=== PATIENT | female | born 1945 | race Caucasian/White ===

== ENCOUNTER → 2017-11-24 10:09 | Outpatient (CLI) | payer MEDICARE, SELFPAY ==
[2017-11-24 12:05] LABS: Absolute Neutrophil Count 3.6 X10^3/uL (2.0-7.7); Basophil# 0.04 X10^3/uL; Basophil% 0.5 % (0-1); Eosinophil# 0.22 X10^3/uL; Eosinophils% 2.9 % (0-5); Hematocrit 40.7 % (37-47); Hemoglobin 13.4 g/dl (12.0-15.0); Lymphocyte % 37.2 % (19-41); Mean Corp Hgb Conc 32.9 g/gl (32-36); Mean Corpuscular Hgb 33.2 pg (27.0-32.0); Mean Corpuscular Volume 100.7 fL (81-99); Mean Platelet Vol. 9.3 fl (6.2-12.0); Monocyte# 0.82 X10^3/uL; Monocyte% 10.9 % (0-10); Platelet Count 130 K/mm3 (150-450); RBC Distribution Width CV 15.3 % (11.6-14.6); RBC Distribution Width SD 54.7 fl (35.1-43.9); Red Blood Count 4.04 M/mm3 (4.2-5.4); White Blood Count 7.5 K/mm3 (4.4-11.0)
[2017-11-24 12:08] LABS: POSITIVE COUNT NO; POSITIVE MORPHOLOGY NO
[2017-11-24 12:09] LABS: POSITIVE DIFFERENTIAL NO
[2017-11-24 12:25] LABS: ALB/GLOB Ratio 0.9 RATIO (0.9-2.4); AST(SGOT) 24 U/L (15-37); Alanine Aminotransfer ALT/SGPT 23 U/L (13-56); Albumin, Serum 3.4 g/dL (3.2-5.0); Alkaline Phosphatase 161 U/L (45-117); Anion Gap 5 (5-15); BUN 16 mg/dL (7-18); BUN/Creat Ratio 21.2 RATIO (10-20); Calcium,Total 9.1 mg/dL (8.5-10.1); Chloride 102 mmol/L (98-107); Creatinine, Serum 0.76 mg/dL (0.55-1.02); EST Glomerular Filtration Rate 80 mL/min (>60); Est Glom Filt Rate - Afr Amer 97 mL/min (>60); Globulin 3.9 g/dL (2.2-4.2); Glucose 149 mg/dL (74-106); Potassium 4.4 mmol/L (3.5-5.1); Protein, Total 7.3 g/dL (6.4-8.2); Sodium Level 137 mmol/L (136-145)
== END ==
PROVIDERS: Family Provider Family Medicine; PCP Family Medicine; Visit Provider Internal Medicine Rheumatology
DX: L40.59 Other psoriatic arthropathy (principal); Z79.899 Other long term (current) drug therapy; L40.8 Other psoriasis; M79.7 Fibromyalgia; M17.0 Bilateral primary osteoarthritis of knee; I10 Essential (primary) hypertension; E11.9 Type 2 diabetes mellitus without complications
CPT/HCPCS: 36415; 80053; 85025

== ENCOUNTER → 2018-02-18 10:14 | Outpatient (CLI) | payer MEDICARE, SELFPAY ==
--- NOTE | 2018-02-18 10:14 | DT_ITS ---
This patient was seen during an EMR downtime February 16, 2018 - February 23, 2018. This patient may have a combination of paper and electronic documentation or all paper documentation. All documentation is viewable within the e-chart portion of [facility] for each patient visit.
[2018-02-23 12:50] LABS: Hematocrit 42.6 % (37-47); Hemoglobin 14.5 g/dl (12.0-15.0); Mean Corpuscular Hgb 31.9 pg (27.0-32.0); Mean Corpuscular Volume 93.8 fL (81-99); Mean Platelet Vol. 10.6 fl (6.2-12.0); POSITIVE COUNT NO; POSITIVE DIFFERENTIAL NO; POSITIVE MORPHOLOGY NO; Platelet Count 102 K/mm3 (150-450); RBC Distribution Width CV 13.4 % (11.6-14.6); Red Blood Count 4.54 M/mm3 (4.2-5.4); White Blood Count 7.1 K/mm3 (4.4-11.0)
[2018-02-23 12:51] LABS: Absolute Lymphocyte Count 2.55 X10^3/ul (0.83-4.51); Absolute Neutrophil Count 3.4 X10^3/uL (2.0-7.7); Basophil% 0.6 % (0-1); Eosinophils% 2.3 % (0-5); Lymphocyte # 2.55 X10^3/ul (4.0); Lymphocyte % 36.2 % (19-41); Monocyte% 12.8 % (0-10); Neutrophil # 3.38 X10^3/uL (2.7-7.7); Neutrophil % 47.8 % (47-70)
[2018-02-23 13:13] LABS: ALB/GLOB Ratio 0.8 RATIO (0.9-2.4); AST(SGOT) 40 U/L (15-37); Alanine Aminotransfer ALT/SGPT 26 U/L (13-56); Albumin, Serum 3.5 g/dL (3.2-5.0); Alkaline Phosphatase 195 U/L (45-117); Anion Gap 10 (5-15); BUN 23 mg/dL (7-18); BUN/Creat Ratio 22.3 RATIO (10-20); Calcium,Total 9.4 mg/dL (8.5-10.1); Chloride 100 mmol/L (98-107); Creatinine, Serum 1.03 mg/dL (0.55-1.02); EST Glomerular Filtration Rate 56 mL/min (>60); Est Glom Filt Rate - Afr Amer 68 mL/min (>60); Globulin 4.4 g/dL (2.2-4.2); Glucose 269 mg/dL (74-106); Potassium 4.4 mmol/L (3.5-5.1); Protein, Total 7.9 g/dL (6.4-8.2); Sodium Level 136 mmol/L (136-145)
== END ==
PROVIDERS: Family Provider Family Medicine; PCP Family Medicine; Visit Provider Internal Medicine Rheumatology
DX: L40.59 Other psoriatic arthropathy (principal); Z79.899 Other long term (current) drug therapy; L40.8 Other psoriasis; M79.7 Fibromyalgia; M17.0 Bilateral primary osteoarthritis of knee; I10 Essential (primary) hypertension; E11.9 Type 2 diabetes mellitus without complications
CPT/HCPCS: 36415; 80053; 85025

== ENCOUNTER → 2018-04-08 10:09 | Outpatient (CLI) | payer MEDICARE, SELFPAY ==
[2018-04-08 12:22] LABS: Absolute Lymphocyte Count 2.16 X10^3/ul (0.83-4.51); Absolute Neutrophil Count 3.5 X10^3/uL (2.0-7.7); Basophil# 0.05 X10^3/uL; Basophil% 0.8 % (0-1); Eosinophil# 0.17 X10^3/uL; Eosinophils% 2.6 % (0-5); Hemoglobin 14.5 g/dl (12.0-15.0); Lymphocyte # 2.16 X10^3/ul (4.0); Lymphocyte % 33.3 % (19-41); Mean Corp Hgb Conc 34.5 g/gl (32-36); Mean Corpuscular Hgb 32.4 pg (27.0-32.0); Mean Corpuscular Volume 93.8 fL (81-99); Mean Platelet Vol. 10.1 fl (6.2-12.0); Monocyte# 0.58 X10^3/uL; Monocyte% 8.9 % (0-10); Neutrophil # 3.52 X10^3/uL (2.7-7.7); Neutrophil % 54.2 % (47-70); Platelet Count 114 K/mm3 (150-450); RBC Distribution Width CV 15.3 % (11.6-14.6); RBC Distribution Width SD 50.7 fl (35.1-43.9); Red Blood Count 4.48 M/mm3 (4.2-5.4); White Blood Count 6.5 K/mm3 (4.4-11.0)
[2018-04-08 12:28] LABS: POSITIVE COUNT NO; POSITIVE DIFFERENTIAL NO; POSITIVE MORPHOLOGY NO
[2018-04-08 12:35] LABS: ALB/GLOB Ratio 0.8 RATIO (0.9-2.4); AST(SGOT) 39 U/L (15-37); Alanine Aminotransfer ALT/SGPT 28 U/L (13-56); Albumin, Serum 3.6 g/dL (3.2-5.0); Alkaline Phosphatase 190 U/L (45-117); Anion Gap 14 (5-15); BUN 15 mg/dL (7-18); BUN/Creat Ratio 15.2 RATIO (10-20); Calcium,Total 9.6 mg/dL (8.5-10.1); Chloride 103 mmol/L (98-107); Creatinine, Serum 0.98 mg/dL (0.55-1.02); EST Glomerular Filtration Rate 59 mL/min (>60); Est Glom Filt Rate - Afr Amer 72 mL/min (>60); Globulin 4.5 g/dL (2.2-4.2); Glucose 242 mg/dL (74-106); Protein, Total 8.1 g/dL (6.4-8.2); Sodium Level 139 mmol/L (136-145)
== END ==
PROVIDERS: Family Provider Family Medicine; PCP Family Medicine; Visit Provider Internal Medicine Rheumatology
DX: L40.59 Other psoriatic arthropathy (principal); Z79.899 Other long term (current) drug therapy; L40.8 Other psoriasis; M79.7 Fibromyalgia; M17.0 Bilateral primary osteoarthritis of knee; I10 Essential (primary) hypertension; E11.9 Type 2 diabetes mellitus without complications
CPT/HCPCS: 36415; 80053; 85025

== ENCOUNTER → 2018-04-09 15:42 | Outpatient (CLI) | payer MEDICARE, SELFPAY ==
[2018-04-09 17:40] LABS: Amphetamine Urine VISTA NEGATIVE (<1000 ng/mL); Barbiturate Urine VISTA NEGATIVE (< 200 ng/mL); Benzodiazepine Urine VISTA NEGATIVE (< 200 ng/mL); Cocaine Urine VISTA NEGATIVE (< 300 ng/mL); Ecstacy Urine VISTA NEGATIVE (< 500 ng/mL); Methadone Urine VISTA NEGATIVE (< 300 ng/mL); PCP Urine VISTA NEGATIVE (< 25 ng/mL); THC Urine VISTA NEGATIVE (< 50 ng/mL); Vista UDS pH Range 6
== END ==
PROVIDERS: Family Provider Family Medicine; PCP Family Medicine; Visit Provider Anesthesiology Pain Medicine
DX: F11.20 Opioid dependence, uncomplicated (principal)
CPT/HCPCS: 80307

== ENCOUNTER → 2018-06-24 09:31 | Outpatient (CLI) | payer MEDICARE, SELFPAY ==
[2018-06-24 12:19] LABS: Absolute Lymphocyte Count 2.18 X10^3/ul (0.83-4.51); Absolute Neutrophil Count 2.9 X10^3/uL (2.0-7.7); Basophil# 0.03 X10^3/uL; Basophil% 0.5 % (0-1); Eosinophil# 0.17 X10^3/uL; Eosinophils% 2.9 % (0-5); Hematocrit 41.8 % (37-47); Hemoglobin 14.1 g/dl (12.0-15.0); Lymphocyte # 2.18 X10^3/ul (4.0); Lymphocyte % 36.6 % (19-41); Mean Corp Hgb Conc 33.7 g/gl (32-36); Mean Corpuscular Hgb 32.3 pg (27.0-32.0); Mean Corpuscular Volume 95.9 fL (81-99); Mean Platelet Vol. 10.1 fl (6.2-12.0); Monocyte# 0.62 X10^3/uL; Monocyte% 10.4 % (0-10); Neutrophil # 2.93 X10^3/uL (2.7-7.7); Neutrophil % 49.3 % (47-70); POSITIVE COUNT NO; POSITIVE DIFFERENTIAL NO; POSITIVE MORPHOLOGY NO; Platelet Count 90 K/mm3 (150-450); RBC Distribution Width CV 15.8 % (11.6-14.6); RBC Distribution Width SD 53.9 fl (35.1-43.9); Red Blood Count 4.36 M/mm3 (4.2-5.4)
[2018-06-24 13:02] LABS: ALB/GLOB Ratio 0.9 RATIO (0.9-2.4); AST(SGOT) 28 U/L (15-37); Alanine Aminotransfer ALT/SGPT 26 U/L (13-56); Albumin, Serum 3.7 g/dL (3.2-5.0); Alkaline Phosphatase 167 U/L (45-117); Anion Gap 10 (5-15); BUN 12 mg/dL (7-18); BUN/Creat Ratio 14.2 RATIO (10-20); Calcium,Total 9.5 mg/dL (8.5-10.1); Chloride 101 mmol/L (98-107); Creatinine, Serum 0.84 mg/dL (0.55-1.02); EST Glomerular Filtration Rate 71 mL/min (>60); Est Glom Filt Rate - Afr Amer 85 mL/min (>60); Globulin 4.3 g/dL (2.2-4.2); Glucose 200 mg/dL (74-106); Potassium 3.9 mmol/L (3.5-5.1); Sodium Level 137 mmol/L (136-145)
== END ==
PROVIDERS: Family Provider Family Medicine; PCP Family Medicine; Referring Provider Internal Medicine Rheumatology; Visit Provider Internal Medicine Rheumatology
DX: L40.59 Other psoriatic arthropathy (principal); Z79.899 Other long term (current) drug therapy; L40.8 Other psoriasis; M79.7 Fibromyalgia; M17.0 Bilateral primary osteoarthritis of knee; I10 Essential (primary) hypertension; E11.9 Type 2 diabetes mellitus without complications
CPT/HCPCS: 36415; 80053; 85025

== ENCOUNTER → 2018-07-02 08:25 | Outpatient (CLI) | payer MEDICARE, MEDICAID, SELFPAY ==
--- NOTE | 2018-07-02 08:27 | RAD_ITS ---
STUDY: X-RAY - ESOPHAGUS (BARIUM SWALLOW) WITH FLUOROSCOPY REASON FOR EXAM: Female, 73 years old. Dysphagia for solids and liquids. TECHNIQUE: 15 view(s) of the esophagus were obtained following swallowing of barium. FLUOROSCOPY TIME (if supplied): (0:52) minutes/seconds COMPARISON: None. FINDINGS: There is no demonstrated esophageal foreign body. There is no demonstrated stricture or mucosal abnormality. Normal gastroesophageal junction, without a demonstrated hiatal hernia. The patient ingested a 12 mm tablet of barium without any difficulty. There is atherosclerotic tortuosity of the aortic arch and descending thoracic aorta. Normal visualized pulmonary parenchyma. There are diffuse degenerative changes of the visualized thoracic spine. RAD/Esophagus Only IMPRESSION: Normal plain film x-ray examination (barium swallow) of the esophagus. Electronically Signed: Mitch Martinez MD at 9:06 EDT Tel [phone], Service support ,
== END ==
PROVIDERS: Family Provider Family Medicine; PCP Family Medicine; Referring Provider Family Medicine; Visit Provider Family Medicine
DX: R13.10 Dysphagia, unspecified (principal)
CPT/HCPCS: 74220

== ENCOUNTER → 2018-09-28 10:26 | Outpatient (CLI) | payer MEDICARE, SELFPAY ==
[2018-09-28 12:03] LABS: Absolute Lymphocyte Count 1.98 X10^3/ul (0.83-4.51); Absolute Neutrophil Count 1.8 X10^3/uL (2.0-7.7); Basophil# 0.04 X10^3/uL; Basophil% 0.9 % (0-1); Eosinophils% 4.4 % (0-5); Hematocrit 38.8 % (37-47); Hemoglobin 13.2 g/dl (12.0-15.0); Lymphocyte # 1.98 X10^3/ul (4.0); Lymphocyte % 43.5 % (19-41); Mean Corpuscular Hgb 33.9 pg (27.0-32.0); Mean Corpuscular Volume 99.7 fL (81-99); Mean Platelet Vol. 10.2 fl (6.2-12.0); Monocyte# 0.55 X10^3/uL; Monocyte% 12.1 % (0-10); Neutrophil # 1.75 X10^3/uL (2.7-7.7); Neutrophil % 38.4 % (47-70); Platelet Count 85 K/mm3 (150-450); RBC Distribution Width CV 15.1 % (11.6-14.6); RBC Distribution Width SD 52.5 fl (35.1-43.9); Red Blood Count 3.89 M/mm3 (4.2-5.4); White Blood Count 4.6 K/mm3 (4.4-11.0)
[2018-09-28 12:18] LABS: POSITIVE COUNT NO; POSITIVE DIFFERENTIAL NO; POSITIVE MORPHOLOGY NO
[2018-09-28 12:27] LABS: ALB/GLOB Ratio 0.9 RATIO (0.9-2.4); AST(SGOT) 32 U/L (15-37); Alanine Aminotransfer ALT/SGPT 23 U/L (13-56); Albumin, Serum 3.5 g/dL (3.2-5.0); Alkaline Phosphatase 166 U/L (45-117); Anion Gap 12 (5-15); BUN 11 mg/dL (7-18); BUN/Creat Ratio 14.1 RATIO (10-20); Calcium,Total 9.7 mg/dL (8.5-10.1); Chloride 100 mmol/L (98-107); Creatinine, Serum 0.78 mg/dL (0.55-1.02); EST Glomerular Filtration Rate 77 mL/min (>60); Est Glom Filt Rate - Afr Amer 94 mL/min (>60); Globulin 3.9 g/dL (2.2-4.2); Glucose 222 mg/dL (74-106); Potassium 3.8 mmol/L (3.5-5.1); Protein, Total 7.4 g/dL (6.4-8.2); Sodium Level 135 mmol/L (136-145)
== END ==
PROVIDERS: Family Provider Family Medicine; PCP Family Medicine; Referring Provider Internal Medicine Rheumatology; Visit Provider Internal Medicine Rheumatology
DX: L40.59 Other psoriatic arthropathy (principal); Z79.899 Other long term (current) drug therapy; L40.8 Other psoriasis; M79.7 Fibromyalgia; M17.0 Bilateral primary osteoarthritis of knee; I10 Essential (primary) hypertension; E11.9 Type 2 diabetes mellitus without complications
CPT/HCPCS: 36415; 80053; 85025

== ENCOUNTER → 2018-10-29 09:56 | Outpatient (CLI) | payer MEDICARE, SELFPAY ==
[2018-10-29 11:11] LABS: Amphetamine Urine VISTA NEGATIVE (<1000 ng/mL); Barbiturate Urine VISTA NEGATIVE (< 200 ng/mL); Benzodiazepine Urine VISTA NEGATIVE (< 200 ng/mL); Cocaine Urine VISTA NEGATIVE (< 300 ng/mL); Ecstacy Urine VISTA NEGATIVE (< 500 ng/mL); Methadone Urine VISTA NEGATIVE (< 300 ng/mL); PCP Urine VISTA NEGATIVE (< 25 ng/mL); THC Urine VISTA NEGATIVE (< 50 ng/mL); Vista UDS pH Range 5
== END ==
PROVIDERS: Family Provider Family Medicine; PCP Family Medicine; Referring Provider Anesthesiology Pain Medicine; Visit Provider Anesthesiology Pain Medicine
DX: F11.20 Opioid dependence, uncomplicated (principal)
CPT/HCPCS: 80307

== ENCOUNTER → 2018-12-08 13:57 | Outpatient (CLI) | payer MEDICARE, SELFPAY ==
[2018-12-08 15:30] LABS: Absolute Neutrophil Count 2.5 X10^3/uL (2.0-7.7); Basophil# 0.04 X10^3/uL; Basophil% 0.8 % (0-1); Eosinophil# 0.16 X10^3/uL; Eosinophils% 3.1 % (0-5); Hematocrit 39.1 % (37-47); Hemoglobin 12.9 g/dl (12.0-15.0); Lymphocyte % 36.8 % (19-41); Mean Corpuscular Hgb 33.4 pg (27.0-32.0); Mean Corpuscular Volume 101.3 fL (81-99); Mean Platelet Vol. 10.5 fl (6.2-12.0); Monocyte# 0.55 X10^3/uL; Monocyte% 10.7 % (0-10); Neutrophil % 48.4 % (47-70); Platelet Count 92 K/mm3 (150-450); RBC Distribution Width CV 14.8 % (11.6-14.6); RBC Distribution Width SD 53.7 fl (35.1-43.9); Red Blood Count 3.86 M/mm3 (4.2-5.4); White Blood Count 5.2 K/mm3 (4.4-11.0)
[2018-12-08 15:34] LABS: POSITIVE COUNT NO; POSITIVE DIFFERENTIAL NO; POSITIVE MORPHOLOGY NO
[2018-12-08 15:42] LABS: ALB/GLOB Ratio 0.9 RATIO (0.9-2.4); AST(SGOT) 39 U/L (15-37); Alanine Aminotransfer ALT/SGPT 28 U/L (13-56); Albumin, Serum 3.5 g/dL (3.2-5.0); Alkaline Phosphatase 254 U/L (45-117); Anion Gap 8 (5-15); BUN 9 mg/dL (7-18); BUN/Creat Ratio 9.6 RATIO (10-20); Calcium,Total 9.3 mg/dL (8.5-10.1); Chloride 101 mmol/L (98-107); Creatinine, Serum 0.94 mg/dL (0.55-1.02); EST Glomerular Filtration Rate 62 mL/min (>60); Est Glom Filt Rate - Afr Amer 75 mL/min (>60); Globulin 3.7 g/dL (2.2-4.2); Glucose 263 mg/dL (74-106); Potassium 3.6 mmol/L (3.5-5.1); Protein, Total 7.2 g/dL (6.4-8.2); Sodium Level 137 mmol/L (136-145)
== END ==
PROVIDERS: Family Provider Family Medicine; PCP Family Medicine; Referring Provider Internal Medicine Rheumatology; Visit Provider Internal Medicine Rheumatology
DX: L40.59 Other psoriatic arthropathy (principal); L40.8 Other psoriasis; M79.7 Fibromyalgia; M17.0 Bilateral primary osteoarthritis of knee; I10 Essential (primary) hypertension; E11.9 Type 2 diabetes mellitus without complications; Z79.899 Other long term (current) drug therapy
CPT/HCPCS: 36415; 80053; 85025

== ENCOUNTER → 2019-04-23 | Outpatient (CLI) | payer MEDICARE, SELFPAY ==
[2019-04-23 10:14] LABS: Absolute Lymphocyte Count 2.14 X10^3/uL (0.83-4.51); Absolute Neutrophil Count 2.9 X10^3/uL (2.0-7.7); Basophil# 0.04 X10^3/uL; Basophil% 0.7 % (0-1); Eosinophil# 0.16 X10^3/uL; Eosinophils% 2.7 % (0-5); Lymphocyte # 2.14 X10^3/ul (4.0); Lymphocyte % 36.1 % (19-41); Mean Corp Hgb Conc 32.5 g/dL (32-36); Mean Corpuscular Hgb 29.5 pg (27.0-32.0); Mean Corpuscular Volume 90.7 fL (81-99); Mean Platelet Vol. 10.7 fl (6.2-12.0); Monocyte# 0.62 X10^3/uL; Monocyte% 10.5 % (0-10); NRBC Flagged by Analyzer 0 % (0-5); Neutrophil # 2.94 X10^3/uL (2.7-7.7); Neutrophil % 49.7 % (47-70); Platelet Count 101 K/mm3 (150-450); RBC Distribution Width CV 14.5 % (11.6-14.6); RBC Distribution Width SD 47.8 fl (35.1-43.9); Red Blood Count 4.41 M/mm3 (4.2-5.4); White Blood Count 5.9 K/mm3 (4.4-11.0)
[2019-04-23 10:51] LABS: ALB/GLOB Ratio 0.7 RATIO (0.9-2.4); AST(SGOT) 21 U/L (15-37); Alanine Aminotransfer ALT/SGPT 21 U/L (13-56); Alkaline Phosphatase 188 U/L (45-117); Anion Gap 7 (5-15); BUN 17 mg/dL (7-18); BUN/Creat Ratio 22.3 RATIO (10-20); Calcium,Total 9.4 mg/dL (8.5-10.1); Chloride 104 mmol/L (98-107); Creatinine, Serum 0.76 mg/dL (0.55-1.02); EST Glomerular Filtration Rate 79 mL/min (>60); Est Glom Filt Rate - Afr Amer 96 mL/min (>60); Globulin 4.3 g/dL (2.2-4.2); Glucose 301 mg/dL (74-106); Potassium 3.8 mmol/L (3.5-5.1); Protein, Total 7.3 g/dL (6.4-8.2); Sodium Level 139 mmol/L (136-145)
== END | disposition home or self-care (01) ==
LOC: MTLAB 09:14
PROVIDERS: Family Provider Family Medicine; PCP Family Medicine; Referring Provider Internal Medicine Rheumatology; Visit Provider Internal Medicine Rheumatology
DX: L40.59 Other psoriatic arthropathy (principal); Z79.899 Other long term (current) drug therapy; L40.8 Other psoriasis; M79.7 Fibromyalgia; M17.0 Bilateral primary osteoarthritis of knee; I10 Essential (primary) hypertension; E11.9 Type 2 diabetes mellitus without complications
CPT/HCPCS: 36415; 80053; 85025

== ENCOUNTER 2019-05-13 15:02 | Emergency (ER) | payer MEDICARE, MEDICAID, SELFPAY ==
[2019-05-13 15:04] VITALS: BP 157/64; PULSE 91; RESP 18; TEMP 36.6; O2SAT 98; BMI 37.3
[2019-05-13 15:09] VITALS: PULSE 90
--- NOTE | 2019-05-13 15:26 | RAD_ITS ---
STUDY: X-RAY - LEFT HAND REASON FOR EXAM: Female, 74 years old. Fell and injured left wrist TECHNIQUE: 3 view(s) of the hand. COMPARISON: None. FINDINGS: Normal radiocarpal articulation. Normal distal radioulnar joint. Normal visualized carpal bones. Normal carpal articulations Normal carpometacarpal articulation of the thumb. Normal second through fifth carpometacarpal joints. Normal metacarpi. Normal metacarpophalangeal joint of the thumb. Normal interphalangeal joint of the thumb. Normal proximal and distal phalanges of the thumb. Normal metacarpophalangeal joints of the second through fifth fingers. Normal proximal and distal interphalangeal joints of the second through fifth fingers. Normal phalanges of the second through fifth fingers. The soft tissue structures are unremarkable. RAD/Hand Min 3 Views IMPRESSION: Normal x-ray examination of the hand. Electronically Signed: Travis Dean MD at 16:08 EDT , Service support ,
--- NOTE | 2019-05-13 15:27 | RAD_ITS ---
STUDY: X-RAY - RIGHT KNEE REASON FOR EXAM: Female, 74 years old. Fell and injured right knee TECHNIQUE: 4 view(s) of the knee. COMPARISON: None. FINDINGS: Normal visualized distal femur. Normal visualized proximal tibia and fibula. Normal proximal tibiofibular articulation. Normal medial femorotibial compartment. Normal lateral femorotibial compartment. Normal patellofemoral articulation. The soft tissue structures are unremarkable. RAD/Knee 4 or More Views IMPRESSION: Normal x-ray examination of the knee. Electronically Signed: Travis Dean MD at 16:14 EDT , Service support ,
--- NOTE | 2019-05-13 15:27 | RAD_ITS ---
STUDY: X-RAY - LUMBAR SPINE REASON FOR EXAM: Female, 74 years old. Low back pain status post fall TECHNIQUE: 3 view(s) of the lumbar spine were obtained. COMPARISON: Radiograph lumbar spine March 29, 2013 report FINDINGS: Normal lumbar lordosis. There is no substantial scoliosis. There is a normal alignment of the vertebrae. Normal vertebral bodies and endplates. Normal disc space heights except moderate narrowing at L5-S1.. Slight anterior subluxation L4-5. Moderate spondylosis L3-4 on the right. Subcutaneous neurostimulator left flank. 2 leads extend into the spinal canal at the T12 level and extends superiorly out of the field of view. It appears to be coiled subcutaneously at this level. The soft tissue structures are unremarkable. RAD/Lumbar Spine 2 or 3 Views IMPRESSION: No fracture Electronically Signed: Travis Dean MD at 16:21 EDT , Service support ,
--- NOTE | 2019-05-13 15:27 | RAD_ITS ---
STUDY: X-RAY - PELVIS AND BILATERAL HIPS REASON FOR EXAM: Female, 74 years old. Fell and injured BOTH hips TECHNIQUE: AP view of the pelvis.? 2 views of the right hip, and 2 views of the left hip were obtained. COMPARISON: None. FINDINGS: Neural stimulator left lower quadrant of the abdomen with leads extending superiorly out of the [id number]. There is a non-specific bowel gas pattern. Normal visualized soft tissue structures. Normal bilateral iliac wings, sacroiliac joints and visualized sacrum. Normal bilateral superior and inferior pubic rami. Normal pubic symphysis. Normal bilateral ischial tuberosities. Normal visualized right femoral head. Normal right acetabulum. Normal right hip joint. Normal visualized left femoral head. Normal left acetabulum. Normal left hip joint. Periarticular calcifications. RAD/Hips B/L min 2 views w/ Pelvis IMPRESSION: No fracture Electronically Signed: Travis Dean MD at 16:12 EDT , Service support ,
--- NOTE | 2019-05-13 15:35 | ED.VIS.GEN ---
History of Present Illness Chief Complaint: Fall Informant: Patient Onset: Today Current Severity: Mild Maximum Severity: Moderate Narrative: Patient reports a problem with her equilibrium and fairly frequent falls. She states she was walking on the sidewalk and started a downward slope when her momentum started moving forward. She was unable to stop herself and she fell forward, landing on both knees and then rolling onto her left side. She did not strike her head. She is complaining of pain to the left arm, bilateral hips, and right knee. Past Medical History - Allergies and Home Meds Allergies/Adverse Reactions: Allergies buprenorphine [From Butrans] Allergy (Verified 05/13/19 15:08) Hives Primary Care Physician: Chang Barlow DO [Primary Care Provider] - Prior records reviewed: Yes Past Medical History: - - Reviewed Smoking Status: Never smoker Review of Systems General: Denies: Chills, Fever Eyes: Denies: Visual changes - bilaterally ENT: Denies: Bilateral ear pain Cardiovascular: Denies: Chest pain, Palpitations Respiratory: Denies: Dyspnea, Cough Gastrointestinal: Denies: Abdominal pain, Nausea, Vomiting Genitourinary: Denies: Dysuria Musculoskeletal: Reports: Back pain, Extremity Pain. Denies: Neck pain Skin: Reports: Abrasions - Left hand and forearm abrasions Neurological: Denies: Headache Endocrine: Denies: Polyuria, Polydipsia Hematologic: Denies: Easy bruising Allergy: Denies: Uticaria Physical Exam Vital Signs/Narrative: Vital Signs Temp Pulse Resp BP Pulse Ox 05/13/19 15:09 90 05/13/19 15:04 97.9 F 91 18 157/64 H 98 Inital Vital Signs reviewed: Yes General: Well nourished, Well developed Head: Normocephalic Eyes: Perrl, EOMI ENT: Moist mucous membranes Neck: Supple Cardiovascular: Regular rate, Regular rhythm Respiratory: No distress, CTA bilaterally Abdomen: Soft, Nontender Back: - - Patient is logrolled off the spine board. She has no thoracic tenderness. She has mild tenderness in the midline lower lumbar region. No step-offs or abrasions. Extremities: Tenderness - Patient has tenderness throughout the left hand and forearm. There are superficial abrasions noted. No obvious deformity. No tenderness over the upper left arm. There is mild tenderness to the bilateral hips. No obvious leg shortening or rotation. She has diffuse tenderness around the right knee. Strong distal pulses are noted. Skin: - - Left arm abrasions as noted. Neurological: Alert, Oriented x3 Psychological: Normal affect Diagnostic/Tx/Re-eval Impressions Hand X-Ray 05/13/19 15:26 IMPRESSION: Normal x-ray examination of the hand. Electronically Signed: Travis Dean MD at 16:08 EDT , Service support , Hip/Pelvis X-Ray 05/13/19 15:27 IMPRESSION: No fracture Electronically Signed: Travis Dean MD at 16:12 EDT , Service support , Knee X-Ray 05/13/19 15:27 IMPRESSION: Normal x-ray examination of the knee. Electronically Signed: Travis Dean MD at 16:14 EDT , Service support , Lumbar Spine X-Ray 05/13/19 15:27 IMPRESSION: No fracture Electronically Signed: Travis Dean MD at 16:21 EDT , Service support , Forearm X-Ray 05/13/19 15:40 05/13/19 15:26 Hand Min 3 Views [RAD] Stat 05/13/19 15:27 Hips B/L min 2 views w/ Pelvis [RAD] Stat Knee 4 or More Views [RAD] Stat Lumbar Spine 2 or 3 Views [RAD] Stat 05/13/19 15:40 Xray Forearm [Forearm 2 Views] [RAD] Stat - Medical Decision Making Patient was given a tab of [place] here for pain. X-rays are discussed with her. Wounds are cleansed and dressed. Small superficial foreign bodies are removed from the left forearm. Patient is already on [place] for pain through her pain management physician. I told her it was okay to take 1 tab every 6 hours for the next couple days to help with her pain. ED Disposition - Plan for ED Patient: Disposition: Home or Assisted Living Diagnosis: Fall, Abrasions of multiple sites Instructions: FALL, Mechanical, Abrasion Referrals: Chang Barlow DO [Primary Care Provider] - Zachary Johnson MD [STAFF PHYSICIAN] -
[2019-05-13] MEDS: HYDROcodone Bitartrate/Apap 5/325 Tablet PO (15:38)
--- NOTE | 2019-05-13 15:40 | RAD_ITS ---
STUDY: X-RAY - LEFT RADIUS AND ULNA REASON FOR EXAM: Female, 74 years old. Fell and injured left forearm TECHNIQUE: 2 view(s) of the forearm. COMPARISON: None. FINDINGS: There is no demonstrated soft tissue swelling. Subcutaneous foreign body x2 measuring 2 mm each dorsal distal forearm. Normal visualized radius. Normal visualized ulna. IMPRESSION: Subcutaneous foreign bodies as above. Normal x-ray examination of the radius and ulna. Electronically Signed: Travis Dean MD at 16:09 EDT , Service support , RAD/Forearm 2 Views
[2019-05-13 17:05] VITALS: RESP 16
== END 2019-05-13 17:13 | disposition home or self-care (01) ==
PROVIDERS: Emergency Provider Emergency Medicine; Family Provider Family Medicine; PCP Family Medicine
DX: S60.512A Abrasion of left hand, initial encounter (principal); S50.812A Abrasion of left forearm, initial encounter; M25.551 Pain in right hip; M25.552 Pain in left hip; M25.561 Pain in right knee; W19.XXXA Unspecified fall, initial encounter; Z91.81 History of falling; Y93.01 Activity, walking, marching and hiking; Y92.9 Unspecified place or not applicable
CPT/HCPCS: 72100; 73090; 73130; 73521; 73564; 99283

== ENCOUNTER → 2019-07-15 13:54 | Outpatient (CLI) | payer MEDICARE, MEDICAID, SELFPAY ==
[2019-07-15 16:20] LABS: Amphetamine Urine VISTA NEGATIVE (<1000 ng/mL); Barbiturate Urine VISTA NEGATIVE (< 200 ng/mL); Benzodiazepine Urine VISTA NEGATIVE (< 200 ng/mL); Cocaine Urine VISTA NEGATIVE (< 300 ng/mL); Ecstacy Urine VISTA NEGATIVE (< 500 ng/mL); Methadone Urine VISTA NEGATIVE (< 300 ng/mL); PCP Urine VISTA NEGATIVE (< 25 ng/mL); THC Urine VISTA NEGATIVE (< 50 ng/mL); Vista UDS pH Range 6
== END ==
PROVIDERS: Family Provider Family Medicine; PCP Family Medicine; Referring Provider Anesthesiology Pain Medicine; Visit Provider Anesthesiology Pain Medicine
DX: F11.20 Opioid dependence, uncomplicated (principal)
CPT/HCPCS: 80307

== ENCOUNTER → 2019-07-22 14:43 | Outpatient (CLI) | payer MEDICARE, MEDICAID, SELFPAY ==
[2019-07-22 15:41] LABS: Absolute Neutrophil Count 4.2 X10^3/uL (2.0-7.7); Basophil# 0.05 X10^3/uL; Basophil% 0.7 % (0-1); Eosinophil# 0.13 X10^3/uL; Eosinophils% 1.9 % (0-5); Hematocrit 37.3 % (37-47); Hemoglobin 12.6 g/dL (12.0-15.0); Lymphocyte % 32.6 % (19-41); Mean Corp Hgb Conc 33.8 g/dL (32-36); Mean Corpuscular Hgb 30.4 pg (27.0-32.0); Mean Corpuscular Volume 89.9 fL (81-99); Mean Platelet Vol. 10.1 fl (6.2-12.0); Monocyte# 0.19 X10^3/uL; Monocyte% 2.8 % (0-10); NRBC Flagged by Analyzer 0 % (0-5); Neutrophil # 4.16 X10^3/uL (2.7-7.7); Neutrophil % 61.7 % (47-70); Platelet Count 109 K/mm3 (150-450); RBC Distribution Width CV 15.9 % (11.6-14.6); RBC Distribution Width SD 51.7 fl (35.1-43.9); Red Blood Count 4.15 M/mm3 (4.2-5.4); White Blood Count 6.8 K/mm3 (4.4-11.0)
[2019-07-22 16:05] LABS: ALB/GLOB Ratio 0.8 RATIO (0.9-2.4); AST(SGOT) 32 U/L (15-37); Alanine Aminotransfer ALT/SGPT 41 U/L (13-56); Albumin, Serum 3.5 g/dL (3.2-5.0); Alkaline Phosphatase 253 U/L (45-117); Anion Gap 8 (5-15); BUN 18 mg/dL (7-18); BUN/Creat Ratio 22.7 RATIO (10-20); Chloride 101 mmol/L (98-107); Creatinine, Serum 0.79 mg/dL (0.55-1.02); EST Glomerular Filtration Rate 76 mL/min (>60); Est Glom Filt Rate - Afr Amer 92 mL/min (>60); Globulin 4.4 g/dL (2.2-4.2); Glucose 216 mg/dL (74-106); Potassium 3.7 mmol/L (3.5-5.1); Protein, Total 7.9 g/dL (6.4-8.2); Sodium Level 138 mmol/L (136-145)
== END ==
PROVIDERS: Family Provider Family Medicine; PCP Family Medicine; Referring Provider Internal Medicine Rheumatology; Visit Provider Internal Medicine Rheumatology
DX: L40.59 Other psoriatic arthropathy (principal); Z79.899 Other long term (current) drug therapy; L40.8 Other psoriasis; M79.7 Fibromyalgia; M17.0 Bilateral primary osteoarthritis of knee; E11.9 Type 2 diabetes mellitus without complications; I10 Essential (primary) hypertension
CPT/HCPCS: 36415; 80053; 85025

== ENCOUNTER → 2019-07-23 10:46 | Outpatient (CLI) | payer MEDICARE, MEDICAID, SELFPAY ==
[2019-07-26 16:07] LABS: QNTFERON TB Mitogen Value > 10.00 IU/mL (.); QNTFERON TB Nil Value 0.03 IU/mL (.); QNTFERON TB1+ Ag Value 0.07 IU/mL (.); QNTFERON TB2+ Ag Value 0.06 IU/mL (.)
[2019-07-26 17:59] LABS: QNTIFERON TB Positive Criteria Negative (Negative)
== END ==
PROVIDERS: Family Provider Family Medicine; PCP Family Medicine; Referring Provider Internal Medicine Rheumatology; Visit Provider Internal Medicine Rheumatology
DX: L40.59 Other psoriatic arthropathy (principal); Z79.899 Other long term (current) drug therapy; L40.8 Other psoriasis; M79.7 Fibromyalgia; M17.0 Bilateral primary osteoarthritis of knee; I10 Essential (primary) hypertension; E11.9 Type 2 diabetes mellitus without complications
CPT/HCPCS: 36415; 86480

== ENCOUNTER → 2019-08-30 15:03 | Outpatient (CLI) | payer MEDICARE, MEDICAID, SELFPAY ==
[2019-08-30 17:31] LABS: Hematocrit 39.4 % (37-47); Hemoglobin 12.8 g/dL (12.0-15.0); Mean Corp Hgb Conc 32.5 g/dL (32-36); Mean Corpuscular Hgb 29.8 pg (27.0-32.0); Mean Corpuscular Volume 91.8 fL (81-99); Mean Platelet Vol. 10.7 fl (6.2-12.0); Platelet Count 129 K/mm3 (150-450); RBC Distribution Width CV 14.5 % (11.6-14.6); RBC Distribution Width SD 47.7 fl (35.1-43.9); Red Blood Count 4.29 M/mm3 (4.2-5.4); White Blood Count 6.7 K/mm3 (4.4-11.0)
[2019-08-30 17:58] LABS: Microalbumin,Random Urine 6.9 mg/L (NO RANGE EST.)
[2019-08-30 18:07] LABS: ALB/GLOB Ratio 0.8 RATIO (0.9-2.4); AST(SGOT) 20 U/L (15-37); Alanine Aminotransfer ALT/SGPT 20 U/L (13-56); Albumin, Serum 3.6 g/dL (3.2-5.0); Alkaline Phosphatase 199 U/L (45-117); Anion Gap 10 (5-15); BUN 13 mg/dL (7-18); BUN/Creat Ratio 13.7 RATIO (10-20); Calcium,Total 9.9 mg/dL (8.5-10.1); Chloride 103 mmol/L (98-107); Cholesterol 193 mg/dL (200); Creatinine, Serum 0.95 mg/dL (0.55-1.02); EST Glomerular Filtration Rate 62 mL/min (>60); Est Glom Filt Rate - Afr Amer 75 mL/min (>60); Globulin 4.5 g/dL (2.2-4.2); Glucose 119 mg/dL (74-106); High Density Lipoprotein 85 mg/dL; Potassium 3.5 mmol/L (3.5-5.1); Protein, Total 8.1 g/dL (6.4-8.2); Sodium Level 138 mmol/L (136-145); Thyroid Stim Hormone (TSH) 2.06 uIU/mL (0.358-3.74); Triglycerides 180 mg/dL; Very Low Density Lipoprotein 36 mg/dL (5-40)
== END ==
PROVIDERS: Family Provider Family Medicine; PCP Family Medicine; Referring Provider Student in an Organized Health Care Education/Training Program; Visit Provider Student in an Organized Health Care Education/Training Program
DX: E11.42 Type 2 diabetes mellitus with diabetic polyneuropathy (principal)
CPT/HCPCS: 36415; 80053; 80061; 82043; 84443; 85027

== ENCOUNTER → 2019-10-20 12:41 | Outpatient (CLI) | payer MEDICARE, MEDICAID, SELFPAY ==
[2019-10-20 14:24] LABS: Absolute Lymphocyte Count 2.23 X10^3/uL (0.83-4.51); Absolute Neutrophil Count 3.4 X10^3/uL (2.0-7.7); Basophil# 0.06 X10^3/uL; Basophil% 0.9 % (0-1); Eosinophil# 0.28 X10^3/uL; Eosinophils% 4.1 % (0-5); Hematocrit 36.1 % (37-47); Hemoglobin 11.7 g/dL (12.0-15.0); Lymphocyte # 2.23 X10^3/ul (4.0); Lymphocyte % 32.4 % (19-41); Mean Corp Hgb Conc 32.4 g/dL (32-36); Mean Corpuscular Volume 89.6 fL (81-99); Mean Platelet Vol. 10.6 fl (6.2-12.0); Monocyte# 0.88 X10^3/uL; Monocyte% 12.8 % (0-10); NRBC Flagged by Analyzer 0 % (0-5); Neutrophil # 3.41 X10^3/uL (2.7-7.7); Neutrophil % 49.5 % (47-70); Platelet Count 106 K/mm3 (150-450); RBC Distribution Width CV 15.3 % (11.6-14.6); RBC Distribution Width SD 49.5 fl (35.1-43.9); Red Blood Count 4.03 M/mm3 (4.2-5.4); White Blood Count 6.9 K/mm3 (4.4-11.0)
[2019-10-20 14:34] LABS: ALB/GLOB Ratio 0.7 RATIO (0.9-2.4); AST(SGOT) 23 U/L (15-37); Alanine Aminotransfer ALT/SGPT 27 U/L (12-78); Albumin, Serum 3.2 g/dL (3.4-5.0); Alkaline Phosphatase 291 U/L (50-136); Anion Gap 8 (5-15); BUN 17 mg/dL (7-18); BUN/Creat Ratio 16.8 RATIO (10-20); Calcium,Total 9.3 mg/dL (8.5-10.1); Chloride 101 mmol/L (98-107); Creatinine, Serum 1.01 mg/dL (0.55-1.20); EST Glomerular Filtration Rate 57 mL/min (>60); Est Glom Filt Rate - Afr Amer 69 mL/min (>60); Globulin 4.5 g/dL (2.3-3.5); Glucose 309 mg/dL (70-110); Potassium 3.7 mmol/L (3.5-5.1); Protein, Total 7.7 g/dL (6.4-8.2); Sodium Level 134 mmol/L (136-145)
== END ==
PROVIDERS: Family Provider Family Medicine; PCP Family Medicine; Referring Provider Internal Medicine Rheumatology; Visit Provider Internal Medicine Rheumatology
DX: L40.59 Other psoriatic arthropathy (principal); Z79.899 Other long term (current) drug therapy; L40.8 Other psoriasis; M79.7 Fibromyalgia; M17.0 Bilateral primary osteoarthritis of knee; I10 Essential (primary) hypertension; E11.9 Type 2 diabetes mellitus without complications
CPT/HCPCS: 36415; 80053; 85025

== ENCOUNTER → 2019-12-02 14:49 | Outpatient (CLI) | payer MEDICARE, MEDICAID, SELFPAY ==
[2019-12-01 10:45] VITALS: BMI 37.3
[2019-12-02 17:54] LABS: Hemoglobin A1c 9.4 % (4.2-6.3)
[2019-12-02 18:02] LABS: ALB/GLOB Ratio 0.7 RATIO (0.9-2.4); AST(SGOT) 23 U/L (15-37); Alanine Aminotransfer ALT/SGPT 28 U/L (13-56); Albumin, Serum 3.4 g/dL (3.2-5.0); Alkaline Phosphatase 207 U/L (45-117); Anion Gap 8 (5-15); BUN 17 mg/dL (7-18); BUN/Creat Ratio 19.2 RATIO (10-20); CRP 3.06 mg/L (0.0-3.0); Calcium,Total 9.5 mg/dL (8.5-10.1); Chloride 102 mmol/L (98-107); Creatinine, Serum 0.89 mg/dL (0.55-1.02); EST Glomerular Filtration Rate 67 mL/min (>60); Est Glom Filt Rate - Afr Amer 80 mL/min (>60); Globulin 4.6 g/dL (2.2-4.2); Glucose 181 mg/dL (74-106); Potassium 3.9 mmol/L (3.5-5.1); Sodium Level 134 mmol/L (136-145)
[2019-12-02 18:16] LABS: Erythrocyte Sedimentation Rate 60 mm/hr (0-30)
== END ==
PROVIDERS: PCP Family Medicine; Referring Provider Podiatrist; Visit Provider Podiatrist
DX: E11.621 Type 2 diabetes mellitus with foot ulcer (principal); L97.429 Non-pressure chronic ulcer of left heel and midfoot with unspecified severity
CPT/HCPCS: 36415; 80053; 83036; 85652; 86140

== ENCOUNTER 2019-12-08 11:30 | Outpatient (RCR) | payer MEDICARE, MEDICAID, SELFPAY ==
[2019-11-18 15:07] VITALS: RESP 16; BMI 37.3
--- NOTE | 2019-11-18 21:56 | HP.PCM_ITS ---
(1) Ulcer of left foot due to type 2 diabetes mellitus Status: Acute Current Visit: Yes Code(s): E11.621 - Type 2 diabetes mellitus with foot ulcer; L97.529 - Non-pressure chronic ulcer of other part of left foot with unspecified severity Comment: Left great toe Gam[place] 2 (2) Uncontrolled type 2 diabetes mellitus Status: Acute Current Visit: Yes Code(s): E11.65 - Type 2 diabetes mellitus with hyperglycemia (3) Chronic pain Status: Chronic Current Visit: Yes Code(s): G89.29 - Other chronic pain (4) Obesity Status: Acute Current Visit: Yes Code(s): E66.9 - Obesity, unspecified (5) Depression Status: Acute Current Visit: Yes Code(s): F32.9 - Major depressive disorder, single episode, unspecified (6) Anxiety Status: Acute Current Visit: Yes Code(s): F41.9 - Anxiety disorder, unspeci fied (7) GERD (gastroesophageal reflux disease) Status: Acute Current Visit: Yes Code(s): K21.9 - Gastro-esophageal reflux disease without esophagitis (8) PVD (peripheral vascular disease) Status: Acute Current Visit: Yes Code(s): I73.9 - Peripheral vascular disease, unspecified History of Present Illness Date of Service: 11/19/19 Chief Complaint: Reoccurring diabetic foot ulcer to left great toe History of Wound: This is a 74-year-old white female who presents to the wound healing center today with complaints of reoccurring diabetic foot ulcer to the left great toe which has been open now for 1 week. She has a past medical history as listed above significant for uncontrolled type 2 diabetes mellitus with an A1c greater than 10. The patient states that she has had problems with ulcerations occurring on her toes. She states that she followed up with her primary care who instructed her to utilize Neosporin and gauze.She does not utilize any offloading mechanisms. She denies any excessive drainage. She denies any other acute concerns. Denies any other aggravating relieving factors. Denies any signs of systemic infection or localized infections. All other systems reviewed and negative with exception of those listed above. Past Medical History Past Medical History: Chronic Problems Chronic pain (Chronic) Allergies/Adverse Reactions: Allergies buprenorphine [From Butrans] Allergy (Verified 11/18/19 15:30) Hives Home Medications: Ambulatory Orders Medication Instructions Recorded Gabapentin [Neurontin] 400 mg PO TID 03/31/14 Hydrocodone Bitart/Apap 5-325 1 tablet PO BID 03/31/14 [[place] 5MG-325MG] Tizanidine HCl 4 mg PO BID 03/31/14 Venlafaxine XR [Effexor Xr] 300 mg PO DAILY 03/31/14 metFORMIN HCl [Glucophage] 500 mg PO BIDCM 03/31/14 Betamethasone Dipropionate gm TP BID 11/18/19 Biotin 1,000 mcg PO DAILY 11/18/19 Clobetasol Propionate/Emoll gm TP DAILY 11/18/19 [Clobetasol Emollient 0.05% Crm] D-Methorphan/PE/Acetaminophen 1 ea PO Q4H PRN 11/18/19 [Mucinex Sinus-Max Onofre-Pain Cp] Empagliflozin [Jardiance] 25 mg PO DAILY 11/18/19 Hydrochlorothiazide-Losartan 12.5 - 50 mg PO DAILY 11/18/19 Hydrocortisone 2.5% Crm [Hytone] 1 applic TOPICAL BID PRN PRN 11/18/19 Insulin Aspart [Novolog Flexpen 5 units SUBCUT TIDCM 11/18/19 ([facility])] Insulin Degludec/Liraglutide 42 units SQ QHS 11/18/19 [Xultophy 100 Unit-3.6 mg/ml] Lysine 500 mg PO BID 11/18/19 Melatonin 5 mg PO QHS 11/18/19 Metformin HCl 1,000 mg PO BID 11/18/19 Mirtazapine [Remeron] 15 mg PO QHS 11/18/19 Oxybutynin [Ditropan] 5 mg PO BID 11/18/19 Promethazine HCl 25 mg PO Q6H PRN 11/18/19 Sodium Chloride [[place] Saline] 50 ml NASAL 11/18/19 Triamcinolone 0.1% Cream [Kenalog] 1 applic TOPICAL BID 11/18/19 Smoking Status: Former smoker Review of Systems Constitutional: Denies: Chills, Fever, Weight Change Eyes: Denies: Pain, Vision Change HEENT: Denies: Difficulty Hearing, Difficulty Swallowing, Sinus Congestion Cardiovascular: Denies: Chest Pain, Palpitations Respiratory: Denies: Cough, Shortness of Breath Gastrointestinal: Denies: Diarrhea, Nausea, Vomiting Genitourinary: Denies: Dysuria, Hematuria Skin: Reports: Wounds - see hpi Endocrine: Denies: Heat/ Cold Intolerance, Polydipsia, Polyuria Hematologic/ Lymphatic: Denies: Easy Bruising, Easy Bleeding - Physical Exam Vital Signs Resp 16 11/18/19 15:07 General: Alert, Oriented x3, Cooperative, No apparent distress HEENT: Atraumatic Oral: Moist Mucosa Lungs: Clear to auscultation, Normal air movement Cardiovascular: Regular rate Abdomen: Soft, Non Tender, Obese Extremities: No clubbing, No cyanosis, No edema, Peripheral Pulses Normal Skin: Ulcer/ Wound - See nursing documentation, diabetic foot ulcer to left great toe on the plantar aspect with small amount of callused edges and adherent slough, no signs of obvious infection at this time Wound Measurements and Assessment WC - Nurse 1 - General Ulcer Measurement Start: 11/18/19 15:03 Freq: Status: Active Protocol: Activity Type Activity Date Activity User E-Sign Co-Sign Detail Recorded Client Recorded Date Recorded By Document 11/18/19 15:07 [facility] [id number] 11/18/19 15:24 [facility] 11/18/19 15:07 Wound Center Nurse 1 [Ulcer Assessment] #1- L GR TOE PLANTAR CLUSTER -Combined with other wound No -Current Size (cm) - Length 0.5 -Current Size (cm) - Width 1.1 -Current Size (cm) - Depth 0.2 -Total Square Cm 0.55 -Date of Last Picture (Recall this 11/18/19 field) -Photo Taken Yes -Epithelialization None Present -Tunneling No -Undermining/Tunneling No -Circular Undermining No -Exudate Amt None Present -Wound Margin Flat & Intact -Granulation Amt Large (67-100%) -Granulation Quality Liberal -Slough/Fibrin No -Necrosis Amt None Present (0 %) -Texture (Larisa-wound Skin Appearance) Assessed,Callus ,Scarring -Moisture (Larisa-wound Skin Appearance Assessed,Dry/ ) Scaly -Color (Larisa-wound Skin Appearance) Assessed, Erythema -Temperature (Larisa-wound Skin No Abnormality Appearance) (Pt Warm) -Tenderness on Palpation (Larisa-wound No Skin Appearance) -Ulcer Cleansing Rinsed/ Irrigated with Saline -Foul Odor after Cleansing No -Anesthetic Used 5% Lidocaine Gel [Edema Assessment] -Lower Limb Edema Present Yes -Right Calf (cm) 36 -Right Ankle (cm) 20 -Left Calf (cm) 34.7 -Left Ankle (cm) 19.3 CATHERINE - Nurse 2 - General Ulcer CM Notes Start: 11/18/19 15:03 Freq: Status: Active Protocol: Activity Type Activity Date Activity User E-Sign Co-Sign Detail Recorded Client Recorded Date Recorded By Document 11/18/19 15:58 MW [id number] 11/18/19 16:03 MW 11/18/19 15:58 Wound Center Nurse 2 [Procedure/Treatment] #1- L GR TOE PLANTAR CLUSTER -Time 16:00 -Correct Patient Yes -Correct Side, Site, Position Yes -Correct Procedure Yes -Procedure Performed Yes -Type of Procedure Debridement -Clinical Debridement Subcutaneous -Post Debridement Size (cm) - Length 1.0 -Post Debridement Size (cm) - Width 1.4 -Post Debridement Size (cm) - Depth 0.1 -Total Square Cm 1.40 -Wound/Ulcer Outcome Not Healed -Ulcer Cleansing Rinsed/ Irrigated with Saline -Foul Odor after Cleansing No -Bioengineered Tissue No -Bleeding Controlled with Pressure -Offloading No -Treatment Response Procedure Tolerated Well [See Physician Procedure note for Specifics] Pain Scale: 0-10 Numeric [Pain] -Is Patient Pain Free? Yes Neurological: Neuro grossly intact Psych/Mental Status: Normal Affect, Appropriate, Alert and oriented to time, place, person, mood and affect Debridement Note Post-Debridement Measurements/Treatment CATHERINE - Nurse 2 - General Ulcer CM Notes Start: 11/18/19 15:03 Freq: Status: Active Protocol: Activity Type Activity Date Activity User E-Sign Co-Sign Detail Recorded Client Recorded Date Recorded By Document 11/18/19 15:58 MW [id number] 11/18/19 16:03 MW 11/18/19 15:58 Wound Center Nurse 2 #1- L GR TOE PLANTAR CLUSTER -Time 16:00 -Correct Patient Yes -Correct Side, Site, Position Yes -Correct Procedure Yes -Procedure Performed Yes -Type of Procedure Debridement -Clinical Debridement Subcutaneous -Post Debridement Size (cm) - Length 1.0 -Post Debridement Size (cm) - Width 1.4 -Post Debridement Size (cm) - Depth 0.1 -Total Square Cm 1.40 -Wound/Ulcer Outcome Not Healed -Ulcer Cleansing Rinsed/ Irrigated with Saline -Foul Odor after Cleansing No -Bioengineered Tissue No -Bleeding Controlled with Pressure -Offloading No -Treatment Response Procedure Tolerated Well Pain Scale: 0-10 Numeric Is Patient Pain Free? Yes Wound debrided: Left great toe DFU Wound Grade/Stage: gamble 2 Type of Debridement: Excisional debridement Anesthesia Used: 5% Lidocaine Gel Depth: in the subcutaneous layer Percentage of wound debrided: 100 Instrument Used: 3mm curette Tissue Removed: Callus, slough, and devitalized tissue Severity: Fat Layer Exposed Amount of bleeding with debridement: Mild Bleeding Controlled with: Pressure Patient tolerated procedure well Assessment/Plan Active Problems Ulcer of left foot due to type 2 diabetes mellitus (Acute) Left great toe Gamble 2 Uncontrolled type 2 diabetes mellitus (Acute) Chronic pain (Chronic) Obesity (Acute) Depression (Acute) Anxiety (Acute) GERD (gastroesophageal reflux disease) (Acute) PVD (peripheral vascular disease) (Acute) Assessment: See above diagnoses Plan: The patient was seen and examined at the wound center today and was updated on the plan of care. A subcutaneous debridement was performed today. The patient tolerated the procedure well. The patients wound care will consist of:Application of silver cell nonadherent cover with gauze change daily. Postop shoe for offloading. Wound cultures were collected. Baseline bloodwork Hold at this time. Vascular studies Held at this time. Patient educated on the importance of diet on wound healing and instructed to increase protein and vitamin C intake. Discussed with patient in detail that her uncontrolled type 2 diabetes mellitus puts her at risk of developing ulcerations on her feet and puts her at risk of limb loss and amputation. Discussed with patient that a referral to endocrinology is warranted.Patient verbalized understanding. Patient will follow up at wound healing center in one week or sooner if needed. This note was generated with [employer] software. It may contain incorrect words, spelling, and punctuation that were not noted in checking the note before signing. Office Visits / Consults: [id number] OV L4 Est [id number]: [id number] Roxi subq tissue 20 sq cm/<
[2019-11-25 08:09] VITALS: BP 187/90; PULSE 79; RESP 18; TEMP 36.5; BMI 37.3
--- NOTE | 2019-11-25 09:30 | PCM.WC.PN ---
(1) Ulcer of left foot due to type 2 diabetes mellitus Status: Acute Current Visit: Yes Code(s): E11.621 - Type 2 diabetes mellitus with foot ulcer; L97.529 - Non-pressure chronic ulcer of other part of left foot with unspecified severity Comment: Left great toe Gamble 2 (2) Uncontrolled type 2 diabetes mellitus Status: Acute Current Visit: Yes Code(s): E11.65 - Type 2 diabetes mellitus with hyperglycemia (3) Pain in left foot Status: Acute Current Visit: Yes Code(s): M79.672 - Pain in left foot Type of Wound Date of Service: 11/25/19 Chief Complaint: Reoccurring diabetic foot ulcer to left great toe History of Wound: This is a 74-year-old white female who presents to the wound healing center today with complaints of reoccurring diabetic foot ulcer to the left great toe which has been open now for 1 week. She has a past medical history as listed above significant for uncontrolled type 2 diabetes mellitus with an A1c greater than 10. The patient states that she has had problems with ulcerations occurring on her toes. She states that she followed up with her primary care who instructed her to utilize Neosporin and gauze.She does not utilize any offloading mechanisms. She denies any excessive drainage. She denies any other acute concerns. Denies any other aggravating relieving factors. Denies any signs of systemic infection or localized infections. All other systems reviewed and negative with exception of those listed above. Progress of Wound: stable - Physical Exam Vital Signs Temp Pulse Resp BP 97.7 F L 79 18 187/90 H 11/25/19 08:09 11/25/19 08:09 11/25/19 08:09 11/25/19 08:09 General: Alert, Oriented x3, Cooperative, No apparent distress Extremities: No cyanosis, Capillary Refill Less than 3 Seconds - To all distal digits of the right and left foot, No Calf Tenderness - Negative Denice and Garcia signs bilateral, Peripheral Pulses Normal - DP and PT pulses palpable bilateral Skin: Ulcer/ Wound - Clustered ulcer to the left plantar hallux fat layer exposed. Base is a mixture of devitalized subcutaneous tissue, adherent slough, fibrin, and some surrounding hyperkeratotic tissue. Granular tissue also appreciated. There is no deep probing to bone, no tracking, no undermining, no surrounding or streaking cellulitis, no increase in warmth, and no purulence appreciated today. Wound Measurements and Assessment WC - Nurse 1 - General Ulcer Measurement Start: 11/18/19 15:03 Freq: Status: Active Protocol: Activity Type Activity Date Activity User E-Sign Co-Sign Detail Recorded Client Recorded Date Recorded By Document 11/25/19 08:09 GURINDER [id number] 11/25/19 08:14 11/25/19 08:09 Wound Center Nurse 1 [Ulcer Assessment] #1- L GR TOE PLANTAR CLUSTER -Combined with other wound No -Current Size (cm) - Length 0.2 -Current Size (cm) - Width 1.0 -Current Size (cm) - Depth 0.1 -Total Square Cm 0.20 -Photo Taken No -Tunneling No -Undermining/Tunneling No -Circular Undermining No -Classification - Thickness Full Thickness without Exposed Support Structure -Exudate Amt Small -Exudate Type Serosanguineous -Wound Margin Flat & Intact -Granulation Amt None Present (0 %) -Granulation Quality N/A -Slough/Fibrin Yes -Necrosis Amt Small (1-33%) -Necrotic Tissue Type Adherent Slough -Structure Exposed None/Limited to Skin Breakdown -Texture (Larisa-wound Skin Appearance) Assessed -Color (Larisa-wound Skin Appearance) Assessed -Temperature (Larisa-wound Skin No Abnormality Appearance) (Pt Warm) -Tenderness on Palpation (Larisa-wound No Skin Appearance) -Ulcer Cleansing Rinsed/ Irrigated with Saline -Foul Odor after Cleansing No -Anesthetic Used 4% Lidocaine Solution [Edema Assessment] -Lower Limb Edema Present No WC - Nurse 2 - General Ulcer CM Notes Start: 11/18/19 15:03 Freq: Status: Active Protocol: Activity Type Activity Date Activity User E-Sign Co-Sign Detail Recorded Client Recorded Date Recorded By Document 11/25/19 08:34 GURINDER [id number] 11/25/19 08:38 11/25/19 08:34 Wound Center Nurse 2 [Procedure/Treatment] #1- L GR TOE PLANTAR CLUSTER -Time 08:34 -Correct Patient Yes -Correct Side, Site, Position Yes -Correct Procedure Yes -Procedure Performed Yes -Type of Procedure Debridement -Clinical Debridement Subcutaneous -Post Debridement Size (cm) - Length 1.0 -Post Debridement Size (cm) - Width 1.4 -Post Debridement Size (cm) - Depth 0.1 -Total Square Cm 1.40 -Wound/Ulcer Outcome Not Healed -Ulcer Cleansing Rinsed/ Irrigated with Saline -Foul Odor after Cleansing No -Bioengineered Tissue No -Bleeding Controlled with Pressure -Offloading Yes -Type of Offloading Surgical Shoe -Treatment Response Procedure Tolerated Well [See Physician Procedure note for Specifics] Pain Scale: 0-10 Numeric [Pain] -Is Patient Pain Free? Yes Musculoskeletal: Tenderness - With manipulation of ulcer site Neurological: Sensory exam intact to light touch and pain Psych/Mental Status: Normal Affect, Appropriate Debridement Note Post-Debridement Measurements/Treatment WC - Nurse 2 - General Ulcer CM Notes Start: 11/18/19 15:03 Freq: Status: Active Protocol: Activity Type Activity Date Activity User E-Sign Co-Sign Detail Recorded Client Recorded Date Recorded By Document 11/18/19 15:58 MW [id number] 11/18/19 16:03 MW Document 11/25/19 08:34 [id number] 11/25/19 08:38 11/18/19 11/25/19 15:58 08:34 Wound Center Nurse 2 #1- L GR TOE PLANTAR CLUSTER -Time 16:00 08:34 -Correct Patient Yes Yes -Correct Side, Site, Position Yes Yes -Correct Procedure Yes Yes -Procedure Performed Yes Yes -Type of Procedure Debridement Debridement -Clinical Debridement Subcutaneous Subcutaneous -Post Debridement Size (cm) - Length 1.0 1.0 -Post Debridement Size (cm) - Width 1.4 1.4 -Post Debridement Size (cm) - Depth 0.1 0.1 -Total Square Cm 1.40 1.40 -Wound/Ulcer Outcome Not Healed Not Healed -Ulcer Cleansing Rinsed/ Rinsed/ Irrigated with Irrigated with Saline Saline -Foul Odor after Cleansing No No -Bioengineered Tissue No No -Bleeding Controlled with Pressure Pressure -Offloading No Yes -Type of Offloading Surgical Shoe -Treatment Response Procedure Procedure Tolerated Well Tolerated Well Pain Scale: 0-10 Numeric Is Patient Pain Free? Yes Yes Wound debrided: Left plantar hallux Laterality: Left Type of Debridement: Excisional debridement Anesthesia Used: 4% Lidocaine Solution Depth: in the subcutaneous layer Percentage of wound debrided: 100 Instrument Used: #15 blade Tissue Removed: Devitalized subcutaneous tissue, adherent slough, fibrin, hpk skin Severity: Fat Layer Exposed Amount of bleeding with debridement: Mild Bleeding Controlled with: Pressure Patient tolerated procedure well Assessment/Plan Active Problems Ulcer of left foot due to type 2 diabetes mellitus (Acute) Left great toe Gamble 2 Uncontrolled type 2 diabetes mellitus (Acute) Chronic pain (Chronic) Obesity (Acute) Depression (Acute) Anxiety (Acute) GERD (gastroesophageal reflux disease) (Acute) PVD (peripheral vascular disease) (Acute) Pain in left foot (Acute) Assessment: See above diagnoses Plan: This patient was carefully examined and evaluated as a courtesy visit for Danie Jaramillo today. A subcutaneous debridement was performed today. The patient tolerated the procedure well. Once complete, the site was carefully cleansed and then dressed with Jannet to the base followed by dry sterile dressing. Patient wearing inappropriate shoes at her visit today. Patient was referred to foot and ankle Center in [place] for surgical shoe with dual density offloading insert. Discussed the importance of keeping the site offloaded. Patient educated on the importance of diet on wound healing and instructed to increase protein and vitamin C intake. Discussed with patient in detail that her uncontrolled type 2 diabetes mellitus puts her at risk of developing ulcerations on her feet and puts her at risk of limb loss and amputation. All questions were answered to patient satisfaction. All signs of local and systemic infection were discussed with the patient she was instructed to go to the emergency room if noted. Patient will follow up at wound healing center in one week or sooner if needed.
[2019-12-01 10:45] VITALS: BP 160/85; PULSE 84; RESP 16; TEMP 37.3; BMI 37.3
--- NOTE | 2019-12-01 11:16 | PCM.WC.PN ---
(1) Chronic ulcer of left foot with fat layer exposed Status: Chronic Current Visit: Yes Code(s): L97.522 - Non-pressure chronic ulcer of other part of left foot with fat layer exposed (2) Type 2 diabetes mellitus with diabetic polyneuropathy Status: Acute Current Visit: Yes Code(s): E11.42 - Type 2 diabetes mellitus with diabetic polyneuropathy (3) Cellulitis of left foot Status: Acute Current Visit: Yes Code(s): L03.116 - Cellulitis of left lower limb (4) Peripheral vascular disease Status: Acute Current Visit: Yes Code(s): I73.9 - Peripheral vascular disease, unspecified Type of Wound Date of Service: 12/01/19 Chief Complaint: Left great toe ulcer History of Wound: This is a 74-year-old white female who presents to the wound healing center today with complaints of reoccurring diabetic foot ulcer to the left great toe which has been open now for at least 3 weeks. She has a past medical history as listed above significant for uncontrolled type 2 diabetes mellitus with an A1c greater than 10. She does have some redness to the toe and also to the top of the left foot. She denies pain. She denies claudication. She does have some rest paresthesias. She denies fever, chill, nausea, vomiting, diarrhea. She has taken penicillin antibiotics in the past without side effects. She presents wearing boots today and relates Dr. Serna previously gave her an order to get offloading shoes and diabetic shoes. She had lab work performed in October. Progress of Wound: Concern of cellulitis - Physical Exam Vital Signs Temp Pulse Resp BP 99.1 F 84 16 160/85 H 12/01/19 10:45 12/01/19 10:45 12/01/19 10:45 12/01/19 10:45 General: Alert, Oriented x3, Cooperative, No apparent distress Extremities: No cyanosis, Capillary Refill Less than 3 Seconds, No Calf Tenderness - Negative Denice and Garcia bilateral lower extremities, Peripheral Pulses Normal - 2 out of 4 PT and DP pulses right and DP left and 1 out of 4 PT left, - - Compartment soft without bogginess or fluctuance on palpation Skin: Ulcer/ Wound - No purulence, necrosis, or odor. Her skin is atrophic and hairless. She does have plantar hallux ulcer with a granular minimal fibrous base. There is erythema extending less than 1 cm around this plantar also. There is also a thin erythematous streak to the dorsal midfoot that is not indirect communication with the plantar foot ulcer however is concerning given her chronic ulcer status. There is no interdigital maceration noted Wound Measurements and Assessment - Nurse 1 - General Ulcer Measurement Start: 11/18/19 15:03 Freq: Status: Active Protocol: Activity Type Activity Date Activity User E-Sign Co-Sign Detail Recorded Client Recorded Date Recorded By Document 12/01/19 10:45 [facility] [id number] 12/01/19 10:50 [facility] 12/01/19 10:45 Wound Center Nurse 1 [Ulcer Assessment] #1- L GR TOE PLANTAR CLUSTER -Combined with other wound No -Current Size (cm) - Length 1.4 -Current Size (cm) - Width 0.8 -Current Size (cm) - Depth 0.1 -Total Square Cm 1.12 -Photo Taken No -Epithelialization None Present -Tunneling No -Undermining/Tunneling No -Circular Undermining No -Exudate Amt Small -Exudate Type Serous -Wound Margin Distinct, Outline Attached -Granulation Amt Medium (34-66%) -Granulation Quality Red -Slough/Fibrin Yes -Necrosis Amt Small (1-33%) -Necrotic Tissue Type Adherent Slough -Texture (Larisa-wound Skin Appearance) Assessed -Moisture (Larisa-wound Skin Appearance Assessed, ) Maceration -Color (Larisa-wound Skin Appearance) Assessed, Erythema,Palor -Temperature (Larisa-wound Skin No Abnormality Appearance) (Pt Warm) -Tenderness on Palpation (Larisa-wound Yes Skin Appearance) -Ulcer Cleansing Rinsed/ Irrigated with Saline -Foul Odor after Cleansing No -Anesthetic Used 5% Lidocaine Gel - Nurse 2 - General Ulcer CM Notes Start: 11/18/19 15:03 Freq: Status: Active Protocol: Activity Type Activity Date Activity User E-Sign Co-Sign Detail Recorded Client Recorded Date Recorded By Document 12/01/19 11:04 [id number] 12/01/19 11:05 12/01/19 11:04 Wound Center Nurse 2 [Procedure/Treatment] -Time 11:04 -Correct Patient Yes -Correct Side, Site, Position Yes -Correct Procedure Yes -Procedure Performed Yes -Type of Procedure Debridement -Clinical Debridement Subcutaneous -Post Debridement Size (cm) - Length 1.5 -Post Debridement Size (cm) - Width 0.8 -Post Debridement Size (cm) - Depth 0.1 -Total Square Cm 1.20 -Wound/Ulcer Outcome Not Healed -Ulcer Cleansing Rinsed/ Irrigated with Saline -Foul Odor after Cleansing No -Bioengineered Tissue No -Bleeding Controlled with NA,Pressure -Offloading Yes -Type of Offloading Surgical Shoe -Treatment Response Procedure Tolerated Well [See Physician Procedure note for Specifics] Pain Scale: 0-10 Numeric [Pain] -Is Patient Pain Free? Yes Musculoskeletal: No Tenderness to Palpation of Joints or Extremities, Muscle Wasting Neurological: Sensory exam intact to light touch and pain Psych/Mental Status: Normal Affect, Appropriate Debridement Note Post-Debridement Measurements/Treatment WC - Nurse 2 - General Ulcer CM Notes Start: 11/18/19 15:03 Freq: Status: Active Protocol: Activity Type Activity Date Activity User E-Sign Co-Sign Detail Recorded Client Recorded Date Recorded By Document 11/18/19 15:58 MW [id number] 11/18/19 16:03 MW Document 11/25/19 08:34 [id number] 11/25/19 08:38 JF Document 12/01/19 11:04 JF [id number] 12/01/19 11:05 JF 11/18/19 11/25/19 12/01/19 15:58 08:34 11:04 Wound Center Nurse 2 #1- L GR TOE PLANTAR CLUSTER -Time 16:00 08:34 11:04 -Correct Patient Yes Yes Yes -Correct Side, Site, Position Yes Yes Yes -Correct Procedure Yes Yes Yes -Procedure Performed Yes Yes Yes -Type of Procedure Debridement Debridement Debridement -Clinical Debridement Subcutaneous Subcutaneous Subcutaneous -Post Debridement Size (cm) - Length 1.0 1.0 1.5 -Post Debridement Size (cm) - Width 1.4 1.4 0.8 -Post Debridement Size (cm) - Depth 0.1 0.1 0.1 -Total Square Cm 1.40 1.40 1.20 -Wound/Ulcer Outcome Not Healed Not Healed Not Healed -Ulcer Cleansing Rinsed/ Rinsed/ Rinsed/ Irrigated with Irrigated with Irrigated with Saline Saline Saline -Foul Odor after Cleansing No No No -Bioengineered Tissue No No No -Bleeding Controlled with Pressure Pressure NA,Pressure -Offloading No Yes Yes -Type of Offloading Surgical Shoe Surgical Shoe -Treatment Response Procedure Procedure Procedure Tolerated Well Tolerated Well Tolerated Well Pain Scale: 0-10 Numeric Is Patient Pain Free? Yes Yes Yes Wound debrided: plantar hallux Laterality: Left Wound Grade/Stage: grade 1 Type of Debridement: Excisional debridement Anesthesia Used: 5% Lidocaine Gel Depth: in the subcutaneous layer Percentage of wound debrided: 100 Instrument Used: #15 blade Tissue Removed: fibrous, devitalized subcutaneous, biofilm, slough Severity: Fat Layer Exposed Amount of bleeding with debridement: Mild Bleeding Controlled with: Pressure Patient tolerated procedure well Assessment/Plan Active Problems Chronic ulcer of left foot with fat layer exposed (Chronic) Type 2 diabetes mellitus with diabetic polyneuropathy (Acute) Cellulitis of left foot (Acute) Peripheral vascular disease (Acute) Assessment: See above diagnoses Plan: I reviewed and discussed her case. A chart review was also performed. A subcutaneous debridement was performed today as noted in the clinical panel. The patient tolerated the procedure well. Once complete, the site was carefully cleansed and then dressed with Jannet to the base followed by dry sterile dressing. Her erythema is noted and therefore a wound culture was obtained including aerobic, anaerobic, and MRSA PCR. The results are pending. Also recommend updating her lab work including CBC with differential, ESR, C-reactive protein, and hemoglobin A1c. Her labs were stable from October but given her recent cellulitis status I recommend updating this. I also recommend obtaining a left foot x-rays and an order form was provided for her to get either at the hospital or the foot and ankle center. Patient wearing inappropriate shoes at her visit today. Patient was referred to foot and ankle Center in [facility] ER for surgical shoe with dual density offloading insert. Discussed the importance of keeping the site offloaded. Patient educated on the importance of diet on wound healing and instructed to increase protein and vitamin C intake. Discussed with patient in detail that her uncontrolled type 2 diabetes mellitus puts her at risk of developing ulcerations on her feet and puts her at risk of limb loss and amputation. All questions were answered to patient satisfaction. A prescription for Augmentin (Augmentin 875 mg tablet, to take 1 by mouth daily) was verbally sent over to drug [facility]. I also recommended noninvasive vascular studies given she reports this wound has returned at least 3 different times. Her scheduled date is pending. To return to clinic in 1 week. It is noted she is seen several providers here at the wound center and she is still trying to figure out her schedule. I answered her questions.
[2019-12-01 18:19] LABS: M R Staph aureus DNA By PCR Negative (Negative); Probe Check PASS; Specimen Processing Control PASS; Staph aureus DNA By PCR POSITIVE (Negative)
--- NOTE | 2019-12-08 11:19 | ART_ITS ---
Reason For Study: PVD Procedure A bilateral lower extremity continuous wave Doppler with analog waveform analysis,segmental pressures,and ankle brachial indexes without exercise. Left Segmental Pressures Left brachial= 151mmHg. Left posterior tibial artery = 175mmHg. Left dorsalis pedis artery = 162mmHg. Left digit = 167 mmHg. The left dorsalis pedis waveforms are triphasic. The left posterior tibial artery waveforms are triphasic. Right Segmental Pressures Right posterior tibial artery = 186mmHg. Right dorsalis pedis artery = 169mmHg. Right digit = 124 mmHg. The right dorsalis pedis waveforms are triphasic. The right posterior tibial artery waveforms are triphasic. Indices The right ankle brachial index by the dorsalis pedis is 1.12. The right ankle brachial index by the posterior tibial artery is 1.23. The right digital-brachial index is 0.82. The left ankle brachial index by the dorsalis pedis is 1.07. The left ankle brachial index by the posterior tibial artery is 1.16. The left digital-brachial index is 1.11. Interpretation Summary Triphasic Doppler waveforms are noted at ankle level bilaterally. Pulse-volume recordings appear satisfactory at all levels bilaterally, including low-thigh, calf, ankle, and digital levels. Resting ankle-brachial indices are normal bilaterally. Digital-brachial indices are normal bilaterally. There is no evidence of significant arterial occlusive disease in the lower extremities bilaterally. Ordering Physician: Danie Jaramillo Referring Physician: Chang Barlow M.D. Performed By: Radha Mark RVT
[2019-12-08 12:07] VITALS: BP 137/77; PULSE 124; RESP 20; TEMP 36.8; BMI 37.3
--- NOTE | 2019-12-08 15:28 | PCM.WC.PN ---
(1) Chronic ulcer of left foot with fat layer exposed Status: Chronic Current Visit: Yes Code(s): L97.522 - Non-pressure chronic ulcer of other part of left foot with fat layer exposed (2) Type 2 diabetes mellitus with diabetic polyneuropathy Status: Acute Current Visit: Yes Code(s): E11.42 - Type 2 diabetes mellitus with diabetic polyneuropathy (3) Cellulitis of left foot Status: Acute Current Visit: Yes Code(s): L03.116 - Cellulitis of left lower limb (4) Peripheral vascular disease Status: Ruled-out Current Visit: Yes Code(s): I73.9 - Peripheral vascular disease, unspecified Type of Wound Date of Service: 12/08/19 Chief Complaint: Left great toe ulcer History of Wound: This is a 74-year-old white female who presents to the wound healing center today with complaints of reoccurring diabetic foot ulcer to the left great toe which has been open now for at least 4 weeks. She has a past medical history as listed above significant for uncontrolled type 2 diabetes mellitus with an A1c greater than 10. Her redness has resolved and she has taken Augmentin as advised. She denies fever, chill, nausea, vomiting, diarrhea, loss of appetite. She obtain lab work as advised and we reviewed her culture results over the phone this past weekend. Her x-rays were also reviewed when she was last at the foot and ankle center. She continues to offload with her surgical shoe as advised. She had noninvasive vascular studies performed this morning and would like to go over the results. Progress of Wound: Improvement - Physical Exam Vital Signs Temp Pulse Resp BP 98.2 F 124 H 20 H 137/77 H 12/08/19 12:07 12/08/19 12:07 12/08/19 12:07 12/08/19 12:07 General: Alert, Oriented x3, Cooperative, No apparent distress Extremities: No cyanosis, Capillary Refill Less than 3 Seconds, No Calf Tenderness, Diminished Peripheral Pulses, Edema Skin: Ulcer/ Wound - No purulence, erythema, streaking, odor, infection. The redness has resolved. The ulcer size is significantly reduced with peripheral epithelialization. There is no streaking. Wound Measurements and Assessment WC - Nurse 1 - General Ulcer Measurement Start: 11/18/19 15:03 Freq: Status: Active Protocol: Activity Type Activity Date Activity User E-Sign Co-Sign Detail Recorded Client Recorded Date Recorded By Document 12/08/19 12:07 [id number] 12/08/19 12:10 DL 12/08/19 12:07 Wound Center Nurse 1 [Ulcer Assessment] #1- L GR TOE PLANTAR CLUSTER -Current Size (cm) - Length 1.2 -Current Size (cm) - Width 0.3 -Current Size (cm) - Depth 0.1 -Total Square Cm 0.36 -Photo Taken No -Exudate Amt None Present -Wound Margin Thickened -Granulation Amt Large (67-100%) -Granulation Quality Pale -Necrosis Amt None Present (0 %) -Structure Exposed N/A -Texture (Larisa-wound Skin Appearance) Scarring -Moisture (Larisa-wound Skin Appearance No Abnormality ) -Color (Larisa-wound Skin Appearance) No Abnormality -Temperature (Larisa-wound Skin No Abnormality Appearance) (Pt Warm) -Tenderness on Palpation (Larisa-wound No Skin Appearance) -Ulcer Cleansing Wound Cleanser -Foul Odor after Cleansing No -Anesthetic Used 4% Lidocaine Solution WC - Nurse 2 - General Ulcer CM Notes Start: 11/18/19 15:03 Freq: Status: Active Protocol: Activity Type Activity Date Activity User E-Sign Co-Sign Detail Recorded Client Recorded Date Recorded By Document 12/08/19 12:19 [id number] 12/08/19 12:19 DL 12/08/19 12:19 Wound Center Nurse 2 [Procedure/Treatment] -Time 12:19 -Correct Patient Yes -Correct Side, Site, Position Yes -Correct Procedure Yes -Procedure Performed Yes -Type of Procedure Debridement -Clinical Debridement Subcutaneous -Post Debridement Size (cm) - Length 0.2 -Post Debridement Size (cm) - Width 0.3 -Post Debridement Size (cm) - Depth 0.1 -Total Square Cm 0.06 -Wound/Ulcer Outcome Not Healed -Ulcer Cleansing Rinsed/ Irrigated with Saline -Foul Odor after Cleansing No -Bioengineered Tissue No -Bleeding Controlled with Pressure -Offloading Yes -Type of Offloading Surgical Shoe -Treatment Response Procedure Tolerated Well [See Physician Procedure note for Specifics] Pain Scale: 0-10 Numeric [Pain] -Is Patient Pain Free? Yes Musculoskeletal: No Tenderness to Palpation of Joints or Extremities, Muscle Wasting, - - Decreased load of percent tarsophalangeal joint range of motion Neurological: - - Lack of normal epicritic sensation light touch is consistent with neuropathy status Psych/Mental Status: Normal Affect, Appropriate Debridement Note Post-Debridement Measurements/Treatment WC - Nurse 2 - General Ulcer CM Notes Start: 11/18/19 15:03 Freq: Status: Active Protocol: Activity Type Activity Date Activity User E-Sign Co-Sign Detail Recorded Client Recorded Date Recorded By Document 11/18/19 15:58 MW [id number] 11/18/19 16:03 MW Document 11/25/19 08:34 JF [id number] 11/25/19 08:38 JF Document 12/01/19 11:04 JF [id number] 12/01/19 11:05 JF Document 12/08/19 12:19 DL [id number] 12/08/19 12:19 DL 11/18/19 11/25/19 12/01/19 15:58 08:34 11:04 Wound Center Nurse 2 #1- L GR TOE PLANTAR CLUSTER -Time 16:00 08:34 11:04 -Correct Patient Yes Yes Yes -Correct Side, Site, Position Yes Yes Yes -Correct Procedure Yes Yes Yes -Procedure Performed Yes Yes Yes -Type of Procedure Debridement Debridement Debridement -Clinical Debridement Subcutaneous Subcutaneous Subcutaneous -Post Debridement Size (cm) - Length 1.0 1.0 1.5 -Post Debridement Size (cm) - Width 1.4 1.4 0.8 -Post Debridement Size (cm) - Depth 0.1 0.1 0.1 -Total Square Cm 1.40 1.40 1.20 -Wound/Ulcer Outcome Not Healed Not Healed Not Healed -Ulcer Cleansing Rinsed/ Rinsed/ Rinsed/ Irrigated with Irrigated with Irrigated with Saline Saline Saline -Foul Odor after Cleansing No No No -Bioengineered Tissue No No No -Bleeding Controlled with Pressure Pressure NA,Pressure -Offloading No Yes Yes -Type of Offloading Surgical Shoe Surgical Shoe -Treatment Response Procedure Procedure Procedure Tolerated Well Tolerated Well Tolerated Well Pain Scale: 0-10 Numeric Is Patient Pain Free? Yes Yes Yes 12/08/19 12:19 Wound Center Nurse 2 #1- L GR TOE PLANTAR CLUSTER -Time 12:19 -Correct Patient Yes -Correct Side, Site, Position Yes -Correct Procedure Yes -Procedure Performed Yes -Type of Procedure Debridement -Clinical Debridement Subcutaneous -Post Debridement Size (cm) - Length 0.2 -Post Debridement Size (cm) - Width 0.3 -Post Debridement Size (cm) - Depth 0.1 -Total Square Cm 0.06 -Wound/Ulcer Outcome Not Healed -Ulcer Cleansing Rinsed/ Irrigated with Saline -Foul Odor after Cleansing No -Bioengineered Tissue No -Bleeding Controlled with Pressure -Offloading Yes -Type of Offloading Surgical Shoe -Treatment Response Procedure Tolerated Well Pain Scale: 0-10 Numeric Is Patient Pain Free? Yes Wound debrided: plantar hallux Laterality: Left Wound Grade/Stage: grade 1 Type of Debridement: Excisional debridement Anesthesia Used: 5% Lidocaine Gel Depth: in the subcutaneous layer Percentage of wound debrided: 100 Instrument Used: #15 blade Tissue Removed: fibrous, devitalized subcutaneous, biofilm, slough Severity: Fat Layer Exposed Amount of bleeding with debridement: Mild Bleeding Controlled with: Pressure Patient tolerated procedure well Assessment/Plan Active Problems Chronic ulcer of left foot with fat layer exposed (Chronic) Type 2 diabetes mellitus with diabetic polyneuropathy (Acute) Cellulitis of left foot (Acute) Assessment: See above diagnoses Plan: I reviewed and discussed her case. A subcutaneous debridement was performed today as noted in the clinical panel. The patient tolerated the procedure well. Once complete, the site was carefully cleansed and then dressed with Jannet to the base followed by dry sterile dressing. She was advised change daily. Her culture results were reviewed and Augmentin seemed to be appropriate. To complete the course. I do not recommend refills. To continue with offloading by heel weightbearing in her surgical shoe with dual density Plastizote offloading liners with a pocket to alleviate the ulcer site from further pressure. To continue with proper well-balanced nutrition. Her hemoglobin A1c is elevated and advised to follow-up with her primary care physician. I also recommended nutritional referral which she is holding off on at this time. I reviewed her noninvasive vascular studies which she had done earlier today. She has normal waveforms and relatively normal ankle-brachial indices. Additional intervention is not recommended at this time. Her x-rays were reviewed from last week without any osseous destruction, foreign body, or soft tissue emphysema. Her lab work was also reviewed and she do not have any leukocytosis. Her ESR and CRP did have some abnormalities which are consistent with her cellulitis status. Recommended she return to clinic in 1 week for reevaluation. She is concerned about traveling into the clinic due to the current coronavirus pandemic and elects to have a telehealth visit next week. She was advised to call sooner if she has any questions or concerns or concerning status change.
== END 2019-12-14 23:59 ==
LOC: WC 11:30
PROVIDERS: PCP Family Medicine; Visit Provider Nurse Practitioner Family
DX: E11.621 Type 2 diabetes mellitus with foot ulcer (principal); L97.522 Non-pressure chronic ulcer of other part of left foot with fat layer exposed; L03.116 Cellulitis of left lower limb; E11.65 Type 2 diabetes mellitus with hyperglycemia; E11.51 Type 2 diabetes mellitus with diabetic peripheral angiopathy without gangrene; I73.9 Peripheral vascular disease, unspecified; E11.42 Type 2 diabetes mellitus with diabetic polyneuropathy; G89.29 Other chronic pain; E66.9 Obesity, unspecified; K21.9 Gastro-esophageal reflux disease without esophagitis; F32.9 Major depressive disorder, single episode, unspecified; F41.9 Anxiety disorder, unspecified; Z79.4 Long term (current) use of insulin; Z79.899 Other long term (current) drug therapy; Z87.891 Personal history of nicotine dependence
CPT/HCPCS: 11042; 87070; 87075; 87077; 87186; 87205; 87640; 93923; 99213; G0463

== ENCOUNTER → 2019-12-16 | Outpatient (CLI) | payer MEDICARE, MEDICAID, SELFPAY ==
[2019-12-08 12:07] VITALS: BMI 37.3
[2019-12-16 21:04] LABS: M R Staph aureus DNA By PCR Negative (Negative); Probe Check PASS; Specimen Processing Control PASS; Staph aureus DNA By PCR POSITIVE (Negative)
== END | disposition home or self-care (01) ==
PROVIDERS: PCP Family Medicine; Referring Provider Podiatrist; Visit Provider Podiatrist
DX: L03.116 Cellulitis of left lower limb (principal); L97.529 Non-pressure chronic ulcer of other part of left foot with unspecified severity
CPT/HCPCS: 87070; 87075; 87077; 87186; 87205; 87640

== ENCOUNTER 2019-12-19 11:15 | Inpatient (IN) | payer MEDICARE, MEDICAID, SELFPAY ==
[2019-12-19 11:30] VITALS: BP 170/77; PULSE 97; RESP 18; TEMP 36.8; O2SAT 97; BMI 32.4
[2019-12-19 11:59] LABS: Absolute Lymphocyte Count 2.37 X10^3/uL (0.83-4.51); Absolute Neutrophil Count 4.5 X10^3/uL (2.0-7.7); Basophil# 0.07 X10^3/uL; Basophil% 0.8 % (0-1); Eosinophil# 0.28 X10^3/uL; Eosinophils% 3.4 % (0-5); Hematocrit 37.3 % (37-47); Hemoglobin 12.2 g/dL (12.0-15.0); Lymphocyte # 2.37 X10^3/ul (4.0); Lymphocyte % 28.5 % (19-41); Mean Corp Hgb Conc 32.7 g/dL (32-36); Mean Corpuscular Hgb 27.8 pg (27.0-32.0); Mean Platelet Vol. 10.5 fl (6.2-12.0); Monocyte# 1.11 X10^3/uL; Monocyte% 13.3 % (0-10); NRBC Flagged by Analyzer 0 % (0-5); Neutrophil # 4.48 X10^3/uL (2.7-7.7); Neutrophil % 53.8 % (47-70); Platelet Count 106 K/mm3 (150-450); RBC Distribution Width CV 15.1 % (11.6-14.6); RBC Distribution Width SD 46.8 fl (35.1-43.9); Red Blood Count 4.39 M/mm3 (4.2-5.4); White Blood Count 8.3 K/mm3 (4.4-11.0)
[2019-12-19 12:06] LABS: ALB/GLOB Ratio 0.6 RATIO (0.9-2.4); AST(SGOT) 54 U/L (15-37); Alanine Aminotransfer ALT/SGPT 50 U/L (13-56); Albumin, Serum 3.1 g/dL (3.2-5.0); Alkaline Phosphatase 171 U/L (45-117); Anion Gap 7 (5-15); BUN 24 mg/dL (7-18); BUN/Creat Ratio 22.6 RATIO (10-20); Calcium,Total 9.2 mg/dL (8.5-10.1); Chloride 103 mmol/L (98-107); Creatinine, Serum 1.06 mg/dL (0.55-1.02); EST Glomerular Filtration Rate 54 mL/min (>60); Est Glom Filt Rate - Afr Amer 65 mL/min (>60); Estimated Creatinine Clearance 39.68 ml/min; Globulin 5.1 g/dL (2.2-4.2); Glucose 257 mg/dL (74-106); Potassium 4.5 mmol/L (3.5-5.1); Protein, Total 8.2 g/dL (6.4-8.2); Sodium Level 133 mmol/L (136-145)
--- NOTE | 2019-12-19 12:07 | PCM.HP.STD ---
Problem List (1) Cellulitis of left foot Status: Acute (2) Pain in left foot Status: Acute (3) Chronic ulcer of left foot with fat layer exposed Status: Chronic (4) Type 2 diabetes mellitus with diabetic polyneuropathy Status: Acute History of Present Illness Date of Admission: 12/19/19 Chief Complaint: Left foot infection The patient is a 74 year old F was seen for left foot infection. She had the onset of a left hallux ulcer approximately 1 month ago and has seen physicians in the wound healing center. She has had intermittent cellulitis that most recently returned this past week and has progressively gotten worse despite taking Augmentin and ciprofloxacin. She denies recent injury. She had cultures obtained in the out patient setting. She had x-rays obtained in outpatient setting which did not demonstrate any acute infection or injury findings. Her pain is rated as a 6 out of 10. She denies fever, chill, nausea, vomiting. She has progressive loss of appetite. The intensity and location of the redness on her foot have also progressively worsened. She has been having dressing changes performed as advised at home with her daughter. She offload with a surgical shoe and places weight on her heel. Her daughter, Katey, is involved greatly in her care plan and is reachable via phone. Her PCP is Dr. Cadena from [place]. Past Medical History Past Medical History (Chronic Problems): Chronic Problems (Last Updated 12/19/19 @ 13:[address] Sean Jimenes DO) Chronic pain (Chronic) Chronic ulcer of left foot with fat layer exposed (Chronic) Chronic pain (Chronic) Medical History: Medical History (Last Updated 12/19/19 @ 13:[address] Sean Jimenes DO) DM2 (diabetes mellitus, type 2) E11.9 Diabetic neuropathy E11.40 Psoriatic arthritis L40.50 Allergies buprenorphine [From [facility]] Allergy (Verified 11/18/19 15:30) Hives Home Medications: Ambulatory Orders Medication Instructions Recorded Gabapentin [Neurontin] 400 mg PO TID 03/31/14 Tizanidine HCl 4 mg PO BID 03/31/14 Biotin 1,000 mcg PO DAILY 11/18/19 Hydrocortisone 2.5% Crm [Hytone] 1 applic TOPICAL BID PRN PRN 11/18/19 Insulin Aspart [Novolog Flexpen 5 units SUBCUT TIDCM 11/18/19 ([facility])] Insulin Degludec/Liraglutide 42 units SQ QHS 11/18/19 [Xultophy 100 Unit-3.6 mg/ml] Melatonin 5 mg PO QHS PRN 11/18/19 Metformin HCl 1,000 mg PO BID 11/18/19 Mirtazapine [Remeron] 15 mg PO QHS 11/18/19 Oxybutynin [Ditropan] 5 mg PO BID 11/18/19 Triamcinolone 0.1% Cream [Kenalog] 1 applic TOPICAL BID 11/18/19 Amoxicillin/Potassium Clav 1 ea PO BID 12/19/19 [Augmentin 875-125 Tablet] Ciprofloxacin [Cipro] 500 mg PO BID 12/19/19 Clobetasol Propionate/Emoll 15 gm TP PRN PRN 12/19/19 [Clobetasol Emollient 0.05% Crm] Cyclobenzaprine HCl 10 mg PO BID 12/19/19 Empagliflozin [Jardiance] 25 mg PO DAILY 12/19/19 Fluticasone 0.05% [Flonase Nasal 2 spray NASAL DAILY 12/19/19 [place]] Folic Acid 1 mg PO DAILY 12/19/19 Hydrochlorothiazide 12.5 mg PO DAILY 12/19/19 Hydrocodone/Acetaminophen [[place] 1 tab PO BID PRN 12/19/19 5-325 Tablet] Losartan Potassium [Cozaar] 50 mg PO DAILY 12/19/19 Methotrexate Sodium [Methotrexate] 2.5 mg PO QWEEK 12/19/19 traMADol [Ultram (G)] 50 mg PO TID 12/19/19 Surgical History: Surgical History (Last Updated 12/19/19 @ 13:[address] Sean Jimenes, ) Hx of cholecystectomy Z90.49 S/P cervical spinal fusion Z98.1 Surgical History: - - Breast cancer surgery including lymph node removal, spinal surgery with pain management stimulator Lives: Alone - She relates her 17-year-old granddaughter may move in in the near future Smoking Status: Never smoker Tobacco Use: Non-smoker Alcohol: None Drugs: None Review of Systems Constitutional: Reports: Fatigue. Denies: Chills, Fever HEENT: Denies: Sinus Congestion, Sinus Drainage, Sore Throat Cardiovascular: Reports: Palpitations. Denies: Chest Pain, Claudication, Edema, Orthopnea Respiratory: Denies: Cough, Shortness of Breath, Wheezing Gastrointestinal: Denies: Abdominal Pain, Constipation, Diarrhea, Nausea, Vomiting Genitourinary: Reports: Incontinence Musculoskeletal: Reports: Foot Pain. Denies: Leg Pain Skin: Reports: Rash, Wounds. Denies: Pruritis Neurological: Reports: Balance problems, Incoordination, Numbness Psychiatric: Reports: Depression Endocrine: Reports: Change in Body Habitus Hematologic/ Lymphatic: Reports: Easy Bruising VTE Information - Inpt Only VTE Present on Admission: No VTE Mechan Device Prophylaxis: SCD's VTE Pharm Prophylaxis ordered?: Yes Patient Problems: Active and Suspected Problems (Last Updated 12/19/19 @ 13:[address] Sean Jimenes, DO) Arrhythmia (Acute) Coronary artery disease (Acute) Memory loss (Acute) Type 2 diabetes mellitus with diabetic polyneuropathy (Acute) Psoriatic arthritis (Acute) Dizziness (Acute) Loss of balance (Acute) Risk for falls (Acute) - Physical Exam Vitals/I&O's: Vital Signs Temp Pulse Resp BP Pulse Ox 98.2 F 97 18 170/77 H 97 12/19/19 11:30 12/19/19 11:30 12/19/19 11:30 12/19/19 11:30 12/19/19 11:30 Oxygen Delivery Method Room Air Weight: 83.064 kg Body Mass Index (BMI) 32.4 General: Alert, Oriented x3, Cooperative HEENT: Atraumatic, EOMI Oral: Moist Mucosa Neck: Supple Lungs: Clear to auscultation Cardiovascular: Regular rate, Regular Rhythm Abdomen: Non Tender Extremities: No cyanosis, Capillary Refill Less than 3 Seconds - All digits bilateral, No Calf Tenderness - Negative Ednice and Garcia sign bilateral, Edema - Mild left foot, Peripheral Pulses Normal - 2 out of 4 PT and DP pulses Skin: - - Skin discontinuity plantar left hallux with granular and sub-hemorrhagic base with erythema with increased intensity and location involving the entire plantar left hallux extending to the dorsal forefoot and with Basim streak extension to the anterior left briones Musculoskeletal: No Tenderness to Palpation of Joints or Extremities, Muscle Wasting, - - Compartment soft to palpate bilateral lower extremities. No bogginess or fluctuance on palpation. No pain on palpation or with passive manipulation of the hallux interphalangeal joint metatarsophalangeal joint, midfoot, lesser metatarsal phalangeal joint, or ankle Lymphatic: - - No cervical, supraclavicular, or popliteal adenopathy Neurological: - - Lack of normal epicritic sensation light touch is consistent with neuropathy Psych/Mental Status: Normal Affect, Appropriate Laboratory Results 12/19/19 11:35: WBC 8.3, RBC 4.39, Hgb 12.2, Hct 37.3, MCV 85.0, MCH 27.8, MCHC 32.7, RDW Std Deviation 46.8 H, RDW Coeff of Karen 15.1 H, Plt Count 106 L, MPV 10.5, Immature Gran % (Auto) 0.200, Neut % (Auto) 53.8, Lymph % (Auto) 28.5, [place] % (Auto) 13.3 H, Eos % (Auto) 3.4, Baso % (Auto) 0.8, Absolute Neuts (auto) 4.5, Absolute Lymphs (auto) 2.37, Nucleated RBC % 0 12/19/19 11:35: Sodium 133 L, Potassium 4.5, Chloride 103, Carbon Dioxide 23.0, Anion Gap 7, BUN 24 H, Creatinine 1.06 H, Estim Creat Clear Calc 39.68, Est GFR (MDRD) Af Amer 65, Est GFR (MDRD) Non-Af 54 L, BUN/Creatinine Ratio 22.6 H, Glucose 257 H, Calcium 9.2, Total Bilirubin 0.60, AST 54 H, ALT 50, Alkaline Phosphatase 171 H, Total Protein 8.2, Albumin 3.1 L, Globulin 5.1 H, Albumin/Globulin Ratio 0.6 L Current Medications Docusate Sodium (Colace) 100 mg PO BID PRN PRN PRN Reason: Constipation Piperacillin Sod/Tazobactam (Sod 3.375 gm/ Sodium Chloride) 50 mls @ 12.5 mls/hr IV Q8 TERRY Ondansetron HCl (Zofran) 4 mg IV Q8H PRN PRN PRN Reason: NAUSEA/VOMITING Sodium Chloride () 10 - 40 ml IV UD PRN PRN Reason: SALINE FLUSH Assessment/Plan All Active Problems (Last Updated 12/19/19 @ 13:[address] Sean Jimenes, DO) Breast mass, right (Acute) Ulcer of left foot due to type 2 diabetes mellitus (Acute) Uncontrolled type 2 diabetes mellitus (Acute) Obesity (Acute) Depression (Acute) Anxiety (Acute) GERD (gastroesophageal reflux disease) (Acute) PVD (peripheral vascular disease) (Acute) Pain in left foot (Acute) Type 2 diabetes mellitus with diabetic polyneuropathy (Acute) Cellulitis of left foot (Acute) Peripheral vascular disease (Ruled-out) Arrhythmia (Acute) Coronary artery disease (Acute) Memory loss (Acute) Type 2 diabetes mellitus with diabetic polyneuropathy (Acute) Psoriatic arthritis (Acute) Dizziness (Acute) Loss of balance (Acute) Risk for falls (Acute) Left foot cellulitis, failed outpatient oral antibiotics, worsening status Rule out deeper infection or osteomyelitis Ulcer left hallux with fat layer exposed Diabetes with neuropathy Left foot pain Other comorbidities: Diabetes with neuropathy, psoriatic arthritis, cardiac arrhythmia, obesity, depression I reviewed and discussed her case.She is afebrile at this time and her vitals are stable. She does not have leukocytosis. Her recent ESR from last couple of weeks was elevated at 70. Updated ESR and C-reactive protein will be obtained. Hemoglobin A1c an updated CMP were ordered with results pending. Updated foot x-ray will be ordered. She is not able to obtain an MRI due to her implantable spinal stimulator. Therefore, I ordered a CT scan which will likely be performed tomorrow and this order was placed. She was started on IV antibiotics including vancomycin and Zosyn. Infectious disease was asked to be on consultation due to failure in the outpatient setting; this will likely occur tomorrow. She was advised to elevate her limb. To continue with ulcer dressing care of Aquacel Ag daily, and she is advised to place weight on her heel with surgical shoe use. She also had a culture obtained in the outpatient setting which is only growing out Staphylococcus aureus so far and the final results are pending. She had a recent noninvasive vascular study also performed which did not demonstrate any occlusive arterial disease. She has triphasic bilateral lower extremity waveforms noted. Her medical comorbidities are noted and medicine team was asked to be on consultation for management of medical comorbidities and DVT prophylaxis which is greatly appreciated. The case was discussed with Dr. Jimenes. Please do not hesitate to call if you have any questions. I'll continue to follow her close while in house. Code status clarified: full code Aminata Yates DPM, [facility] [phone]
--- NOTE | 2019-12-19 12:27 | RAD_ITS ---
STUDY: X-RAY - LEFT FOOT CLINICAL: Female, 74 years old. ULCER HALLUX TECHNIQUE: 3 view(s) of the foot. COMPARISON: Left foot CT same day FINDINGS: Normal talus, calcaneus, and tarsal bones. Normal visualized subtalar, talonavicular, calcaneocuboid, tarsal and tarsometatarsal articulations. Normal metatarsi. Normal metatarsophalangeal joint of the great toe. Normal tibial and fibular sesamoid bones. Normal interphalangeal joint of the great toe. Normal phalanges of the great toe. Normal second through fifth metatarsophalangeal joints. There is a subtle lucency within the proximal phalanx of the fifth digit which could represent a nondisplaced fracture. There is mild adjacent soft tissue edema. There is mild edema near the first digit without visualized bony erosion or fracture. No visualized foreign body. RAD/Foot min 3 Views IMPRESSION: Soft tissue edema no visualized fracture. No visualized bony erosion or gas formation. Possible terminating nondisplaced fracture of the fifth proximal phalanx Electronically Signed: Dana Peres MD at 15:51 EDT Tel , Service support ,
--- NOTE | 2019-12-19 12:28 | CT_ITS ---
STUDY: CT LOWER EXTREMITY WITHOUT CONTRAST LEFT LEFT REASON FOR EXAM: Female, 74 years old. LEFT FOOT CELLULITIS, OSTEOMYELITIS, ULCER ON BOTTOM OF FOOT RADIATION DOSAGE (If Supplied By Facility): CTDIvol = ( 15.35 ) mGy, DLP = ( 330.74 ) mGycm. Individualized dose optimization techniques were used for this CT.? TECHNIQUE: Multiple Axial images of the foot were obtained from the distal tibia and fibula. The posterior aspect of the calcaneus is out of the field of view on the sagittal reconstructed images. Sagittal coronal reformatted images are performed. COMPARISON: December 19, 2019 left foot x-ray FINDINGS: The bones are mildly osteopenic. There is partial visualization of the right foot. There is fairly symmetric appearing soft tissue. There is no definitive obvious focal soft tissue ulceration. There is soft tissue edema underlying the fifth metatarsophalangeal joint. There is no visualized obvious abscess or gas remains present. There is no visualized underlying bony erosion. A Focal soft tissue ulceration is not seen other than a small fold within the skin underlying the calcaneus. There is no visualized gas is visualized abscess is no visualized bone erosion. There is mild degenerative change in the distal interphalangeal joints. There may be a prior injury of the mid proximal phalanx of the third digit. Within the proximal phalanx of the fifth digit there may be a nondisplaced fracture. CT/Extremity Lower without Contra IMPRESSION: No visualized abscess. No visualized gas in the soft tissues. No visualized bony erosion. There may be a nondisplaced fracture within the proximal phalanx of the fifth digit image #58 series 3. If There is further concern for osteomyelitis could consider follow-up MRI. Electronically Signed: Dana Peres MD at 15:31 EDT Tel , Service support ,
[2019-12-19 12:30] LABS: Platelet Estimate SLT DEC (ADEQ); Red Cell Morphology NORM C+C NORMAL (NORM C&C)
[2019-12-19 13:02] LABS: Erythrocyte Sedimentation Rate 40 mm/hr (0-30)
[2019-12-19 13:10] LABS: Hemoglobin A1c 8.7 % (4.2-6.3)
--- NOTE | 2019-12-19 13:22 | CON.PCM_ITS ---
Reason for Consult Date of Consultation: 12/19/19 Reason for Consultation: Consult requested for medical management History of Present Illness: The patient is a 74 year old F who has been dealing with a left foot issue for the past few weeks. Patient had increased erythema noted this past December 15. Patient was started on antibiotics and continue to get worse. Lesions began on the plantar aspect of her left great toe and over the past couple days, has progressed to the dorsal aspect of her left foot. Patient has neuropathy and denies any pain other than a throbbing sensation. Denies any other constitutional symptoms such as fever or chills. Patient was brought in because of worsening infection of her left foot. [] Past Medical History Past Medical History (Chronic Problems): Chronic Problems Chronic pain (Chronic) Chronic pain (Chronic) Chronic ulcer of left foot with fat layer exposed (Chronic) Medical History: Medical History (Last Updated 12/19/19 @ 13:[address] Sean Jimenes, DO) DM2 (diabetes mellitus, type 2) E11.9 Diabetic neuropathy E11.40 Psoriatic arthritis L40.50 Allergies buprenorphine [From Butrans] Allergy (Verified 11/18/19 15:30) Hives Home Medications: Ambulatory Orders Medication Instructions Recorded Gabapentin [Neurontin] 400 mg PO TID 03/31/14 Hydrocodone Bitart/Apap 5-325 1 tablet PO BID 03/31/14 [[place] 5MG-325MG] Tizanidine HCl 4 mg PO BID 03/31/14 Venlafaxine XR [Effexor Xr] 300 mg PO DAILY 03/31/14 metFORMIN HCl [Glucophage] 500 mg PO BIDCM 03/31/14 Betamethasone Dipropionate 15 gm TP BID PRN 11/18/19 Biotin 1,000 mcg PO DAILY 11/18/19 D-Methorphan/PE/Acetaminophen 1 ea PO Q4H PRN 11/18/19 [Mucinex Sinus-Max Onofre-Pain Cp] Empagliflozin [Jardiance] 25 mg PO DAILY 11/18/19 Hydrocortisone 2.5% Crm [Hytone] 1 applic TOPICAL BID PRN PRN 11/18/19 Insulin Aspart [Novolog Flexpen 5 units SUBCUT TIDCM 11/18/19 ([facility])] Insulin Degludec/Liraglutide 42 units SQ QHS 11/18/19 [Xultophy 100 Unit-3.6 mg/ml] Lysine 500 mg PO BID 11/18/19 Melatonin 5 mg PO QHS PRN 11/18/19 Metformin HCl 1,000 mg PO BID 11/18/19 Mirtazapine [Remeron] 15 mg PO QHS 11/18/19 Oxybutynin [Ditropan] 5 mg PO BID 11/18/19 Promethazine HCl 25 mg PO Q6H PRN 11/18/19 Sodium Chloride [[place] Saline] 50 ml NASAL 11/18/19 Triamcinolone 0.1% Cream [Kenalog] 1 applic TOPICAL BID 11/18/19 Amoxicillin/Potassium Clav 1 ea PO BID 12/19/19 [Augmentin 875-125 Tablet] Ciprofloxacin [Cipro] 500 mg PO BID 12/19/19 Clobetasol Propionate/Emoll 15 gm TP PRN PRN 12/19/19 [Clobetasol Emollient 0.05% Crm] Cyclobenzaprine HCl 10 mg PO BID 12/19/19 Empagliflozin [Jardiance] 25 mg PO DAILY 12/19/19 Fluticasone 0.05% [Flonase Nasal 2 spray NASAL DAILY 12/19/19 Early] Hydrochlorothiazide 12.5 mg PO DAILY 12/19/19 Losartan Potassium [Cozaar] 50 mg PO DAILY 12/19/19 Methotrexate Sodium [Methotrexate] 2.5 mg PO QWEEK 12/19/19 traMADol [Ultram (G)] 50 mg PO TID 12/19/19 Surgical History: Surgical History (Last Updated 12/19/19 @ 13:[address] Sean Jimenes, DO) Hx of cholecystectomy Z90.49 S/P cervical spinal fusion Z98.1 Surgical History: - - Breast cancer surgery including lymph node removal, spinal surgery with pain management stimulator Lives: Alone - She relates her 17-year-old granddaughter may move in in the near future Smoking Status: Never smoker Tobacco Use: Non-smoker Alcohol: None Drugs: None Review of Systems Constitutional: Denies: Chills, Fever, Weight Change Eyes: Denies: Blurred vision, Double vision HEENT: Denies: Head Aches, Sinus Congestion, Sinus Drainage Cardiovascular: Denies: Chest Pain, Palpitations Respiratory: Denies: Cough, Shortness of breath at rest, Sputum production Gastrointestinal: Denies: Abdominal Pain, Nausea, Vomiting Genitourinary: Denies: Dysuria Musculoskeletal: Denies: Joint Pain, Joint Tenderness Skin: Reports: - - Erythema of her left great toe and foot Neurological: Reports: - - Neuropathy in the lower extremities Psychiatric: Denies: Anxiety, Depression Hematologic/ Lymphatic: Denies: Easy Bruising, Easy Bleeding, Hx of blood clot Comment: All review of systems were negative except as mentioned above in the history of present illness and the other review of systems. Patient Problems: Active and Suspected Problems Risk for falls (Acute) Loss of balance (Acute) Dizziness (Acute) Psoriatic arthritis (Acute) Type 2 diabetes mellitus with diabetic polyneuropathy (Acute) Memory loss (Acute) Coronary artery disease (Acute) Arrhythmia (Acute) - Physical Exam Vitals/I&O's: Vital Signs Temp Pulse Resp BP Pulse Ox 36.8 C 97 18 170/77 H 97 12/19/19 11:30 12/19/19 11:30 12/19/19 11:30 12/19/19 11:30 12/19/19 11:30 Oxygen Delivery Method Room Air Weight: 83.064 kg Body Mass Index (BMI) 32.4 General: Alert, Cooperative, No apparent distress HEENT: Atraumatic, Normocephalic Oral: Moist Mucosa, No Gingival or Mucosal Lesions/ Ulcerations Neck: No Nodes, Trachea Midline Lungs: Clear to auscultation, Normal air movement Cardiovascular: Regular rate, No murmurs Abdomen: Bowel Sounds Present, Soft, Non Tender, Non-Distended Extremities: No edema, No Calf Tenderness Skin: - - Erythema from the left great toe extending upwards into the dorsal aspect of the left foot. Does have some sloughing skin on the plantar aspect of the left great toe. Appear to be a small puncture wound the plantar aspect of the left great toe Musculoskeletal: No Tenderness to Palpation of Joints or Extremities, No Muscle Wasting Psych/Mental Status: Normal Affect, Appropriate Laboratory Results 12/19/19 06:10: Hemoglobin A1c 8.7 H 12/19/19 06:10: ESR 40 H 12/19/19 06:10: C-React Prot High Sens 17.70 H 12/19/19 11:35: WBC 8.3, RBC 4.39, Hgb 12.2, Hct 37.3, MCV 85.0, MCH 27.8, MCHC 32.7, RDW Std Deviation 46.8 H, RDW Coeff of Karen 15.1 H, Plt Count 106 L, MPV 10.5, Immature Gran % (Auto) 0.200, Neut % (Auto) 53.8, Lymph % (Auto) 28.5, [place] % (Auto) 13.3 H, Eos % (Auto) 3.4, Baso % (Auto) 0.8, Absolute Neuts (auto) 4.5, Absolute Lymphs (auto) 2.37, Nucleated RBC % 0, Platelet Estimate SLT DEC, RBC Morphology NORM C+C 12/19/19 11:35: Sodium 133 L, Potassium 4.5, Chloride 103, Carbon Dioxide 23.0, Anion Gap 7, BUN 24 H, Creatinine 1.06 H, Estim Creat Clear Calc 39.68, Est GFR (MDRD) Af Amer 65, Est GFR (MDRD) Non-Af 54 L, BUN/Creatinine Ratio 22.6 H, Glucose 257 H, Calcium 9.2, Total Bilirubin 0.60, AST 54 H, ALT 50, Alkaline Phosphatase 171 H, Total Protein 8.2, Albumin 3.1 L, Globulin 5.1 H, Albumin/Globulin Ratio 0.6 L Current Medications Hydrocodone Bitart/Acetaminophen ([place] 5mg-325mg) 1 tablet PO Q6H PRN PRN PRN Reason: Pain Score 6-10/10 Dextrose (D50w Syringe) 0 gm IV X1 PRN; Protocol PRN Reason: Hypoglycemia Docusate Sodium (Colace) 100 mg PO BID PRN PRN PRN Reason: Constipation Glucagon () 1 mg IM .X1 PRN PRN Reason: Hypoglycemia Piperacillin Sod/Tazobactam (Sod 3.375 gm/ Sodium Chloride) 50 mls @ 12.5 mls/hr IV Q8 TERRY Vancomycin IV Pharmacy to Dose (1 ea/ Sodium Chloride) 500 mls @ 250 mls/hr IV X1 PRN; Protocol PRN Reason: Rx to Dose Vancomycin HCl 1,250 mg/ (Sodium Chloride) 275 mls @ 167 mls/hr IV X1 ONE Stop: 12/19/19 15:08 Ondansetron HCl (Zofran) 4 mg IV Q8H PRN PRN PRN Reason: NAUSEA/VOMITING Sodium Chloride () 10 - 40 ml IV UD PRN PRN Reason: SALINE FLUSH Assessment/Plan All Active Problems Risk for falls (Acute) Loss of balance (Acute) Dizziness (Acute) Psoriatic arthritis (Acute) Type 2 diabetes mellitus with diabetic polyneuropathy (Acute) Memory loss (Acute) Coronary artery disease (Acute) Arrhythmia (Acute) Ulcer of left foot due to type 2 diabetes mellitus (Acute) Uncontrolled type 2 diabetes mellitus (Acute) Obesity (Acute) Depression (Acute) Anxiety (Acute) GERD (gastroesophageal reflux disease) (Acute) PVD (peripheral vascular disease) (Acute) Pain in left foot (Acute) Type 2 diabetes mellitus with diabetic polyneuropathy (Acute) Cellulitis of left foot (Acute) Peripheral vascular disease (Ruled-out) Breast mass, right (Acute) 1. Left foot cellulitis: Refractory to outpatient therapy. Brought in and started on Pipracil and/tazobactam and vancomycin. ESR 40 and CRP 17.7. Infectious disease on consultation. CT scheduled to evaluate the left foot to see if any evidence of any osteomyelitis is present. Surgical measures to be facilitated by the podiatry service, if necessary. 2. Diabetes mellitus type 2: Patient on numerous medications, including: Metformin, empagliflozin, degludec and prandial insulin. Add sliding scale insulin as well as continue with her home medications 3. Psoriatic arthritis: Patient methotrexate as well as ixekizumab being held 4. VTE prophylaxis: SCDs have been ordered by the primary team. 5. Advanced care planning: Discussed CPR and intubation with the patient. Patient wishes to be full CODE STATUS at this time. Thank you for the consult. The hospitalist service will follow along during the course of this patient's hospitalization. Inpatient E&M: 19920 Init Hosp L2
[2019-12-19] MEDS: 0.9% Saline Lock 10 ML Syringe IV ×2 (14:30→23:43)
--- NOTE | 2019-12-19 14:51 | PCM.RX.CS ---
Consult Pharmacy has been consulted to manage selected antiobiotic: Vancomycin Type of Consult: New start Labs: Sodium 133 mmol/L (136-145) L 12/19/19 11:35 Potassium 4.5 mmol/L (3.5-5.1) 12/19/19 11:35 Chloride 103 mmol/L (98-107) 12/19/19 11:35 Carbon Dioxide 23.0 mmol/L (21.0-32.0) 12/19/19 11:35 Anion Gap 7 (5-15) 12/19/19 11:35 BUN 24 mg/dL (7-18) H 12/19/19 11:35 Creatinine 1.06 mg/dL (0.55-1.02) H 12/19/19 11:35 Est GFR (MDRD) Af Amer 65 mL/min (>60) 12/19/19 11:35 Est GFR (MDRD) Non-Af 54 mL/min (>60) L 12/19/19 11:35 BUN/Creatinine Ratio 22.6 RATIO (10-20) H 12/19/19 11:35 Glucose 257 mg/dL (74-106) H 12/19/19 11:35 Weight used for dosin kg Estimated Creatinine Clearance: 40 mL/min Goal Trough: 15-20 mcg/mL Pharmacy Plan for Drug Dosing: Vancomycin 1250mg IV x1, 500mg IV q12h with trough prior to 4th dose per policy. Pharmacy Service will continue to monitor and adjust dosing as required. Follow-Up Labs: Trough Vancomycin - 12/20 @ 0230
[2019-12-19] MEDS: Gabapentin 400 MG Capsule PO ×2 (15:47→21:52)
[2019-12-19 16:51] LABS: Bedside Glucose 253 mg/dL (70-110)
[2019-12-19 17:25] VITALS: BP 153/72; PULSE 18; RESP 18; TEMP 36.7; O2SAT 95
[2019-12-19] MEDS: Insulin Lispro 100 UNIT/ML INSULN.PEN SC ×2 (18:37→18:38)
[2019-12-19] MEDS: metFORMIN HCl 500 MG Tablet 1000 MG PO (18:44)
[2019-12-19] MEDS: Oxybutynin 5 MG Tablet PO (21:52)
[2019-12-19 22:05] VITALS: BP 146/90; PULSE 81; RESP 17; TEMP 36.9; O2SAT 98
[2019-12-19 23:01] LABS: Bedside Glucose 152 mg/dL (70-110)
[2019-12-19] MEDS: MELATONIN 10 MG TABLET 5 MG PO (23:42)
[2019-12-19] MEDS: HYDROcodone Bitartrate/Apap 5/325 Tablet PO (23:43)
[2019-12-20] MEDS: Vancomycin IV 500 MG/100 ML BAG 100 MG IV (03:40)
[2019-12-20 03:49] VITALS: BP 150/92; PULSE 77; RESP 17; TEMP 36.8; O2SAT 97
[2019-12-20 05:50] LABS: Anion Gap 6 (5-15); BUN 15 mg/dL (7-18); BUN/Creat Ratio 21.3 RATIO (10-20); Calcium,Total 8.8 mg/dL (8.5-10.1); Chloride 104 mmol/L (98-107); EST Glomerular Filtration Rate 87 mL/min (>60); Est Glom Filt Rate - Afr Amer 105 mL/min (>60); Estimated Creatinine Clearance 42.07 ml/min; Glucose 97 mg/dL (74-106); Potassium 3.8 mmol/L (3.5-5.1); Sodium Level 136 mmol/L (136-145)
[2019-12-20] MEDS: HYDROcodone Bitartrate/Apap 5/325 Tablet PO ×2 (06:02→16:31)
[2019-12-20] MEDS: Gabapentin 400 MG Capsule PO ×3 (06:03→22:12)
[2019-12-20] MEDS: Enoxaparin 40 MG/0.4 ML Syringe SC (06:07)
[2019-12-20 08:29] VITALS: BP 169/125; PULSE 78; RESP 18; TEMP 36.3; O2SAT 94
[2019-12-20] MEDS: Insulin Lispro 100 UNIT/ML INSULN.PEN SC ×3 (08:35→16:25)
[2019-12-20] MEDS: metFORMIN HCl 500 MG Tablet 1000 MG PO ×2 (08:35→16:25)
[2019-12-20 08:41] LABS: Bedside Glucose 91 mg/dL (70-110)
[2019-12-20] MEDS: tiZANidine HCl 2 MG Tablet 4 MG PO ×2 (09:53→22:11)
[2019-12-20] MEDS: Losartan Potassium 50 MG Tablet PO (09:53)
[2019-12-20] MEDS: Venlafaxine XR 150 MG Capsule 300 MG PO (09:53)
[2019-12-20] MEDS: hydroCHLOROthiazide 12.5mg 12.5 MG PO (09:53)
[2019-12-20] MEDS: Empagliflozin 25 MG Tablet PO (09:53)
[2019-12-20] MEDS: Oxybutynin 5 MG Tablet PO ×2 (09:53→22:12)
[2019-12-20] MEDS: cycloBENZAPRine HCl 10 MG Tablet PO ×2 (09:53→22:12)
[2019-12-20] MEDS: Folic Acid 1 MG Tablet PO (09:53)
--- NOTE | 2019-12-20 12:00 | PCM.PN.HOSP ---
Patient Problems: Active and Suspected Problems (Last Updated 12/19/19 @ 13:[address] Sean Jimenes, DO) Arrhythmia (Acute) Coronary artery disease (Acute) Memory loss (Acute) Type 2 diabetes mellitus with diabetic polyneuropathy (Acute) Psoriatic arthritis (Acute) Dizziness (Acute) Loss of balance (Acute) Risk for falls (Acute) Reason for Visit: Left great toe cellulitis, failure of outpatient antibiotic Objective: No fever or chills. Extent of redness, tenderness have improved since admission. On IV antibiotics, Vanco and Zosyn Vitals/I&O's: Vital Signs Temp Pulse Resp BP Pulse Ox 97.4 F L 78 18 169/125 H 94 12/20/19 08:29 12/20/19 08:29 12/20/19 08:29 12/20/19 08:29 12/20/19 08:29 Oxygen Delivery Method Nasal Cannula Weight: 183 lb 2 oz Body Mass Index (BMI) 32.4 Intake and Output for Last 24 Hours 12/18/19 12/19/19 12/20/19 23:59 23:59 23:59 Intake Total 1045 / 1045 1890 / 1890 Balance 1045 / 1045 189 / 1890 General: Alert, Oriented x3, Cooperative HEENT: Atraumatic, PERRLA, EOMI, Normocephalic Neck: Supple, No JVD, Negative Carotid Bruits Lungs: Clear to auscultation, Normal air movement, No rhonchi, No wheeze, No rales Cardiovascular: Regular rate, Regular Rhythm, Normal S1, Normal S2, No murmurs Abdomen: Bowel Sounds Present, Soft, Non Tender, Non-Distended Extremities: No edema, Capillary Refill Less than 3 Seconds Skin: No rashes, No breakdown Musculoskeletal: No Tenderness to Palpation of Joints or Extremities, Arthritic Changes Neurological: Cranial nerves II-XII grossly intact, Deep Tendon Reflexes 2+/4 and Symmetrical, - - Decreased sensation to fine and crude touch on left foot below knee. Position sense is impaired on left great toe and decreased on right great toe Psych/Mental Status: Normal Affect, Appropriate Laboratory Results 12/19/19 06:10: Hemoglobin A1c 8.7 H 12/19/19 06:10: ESR 40 H 12/19/19 06:10: C-React Prot High Sens 17.70 H 12/19/19 11:35: WBC 8.3, RBC 4.39, Hgb 12.2, Hct 37.3, MCV 85.0, MCH 27.8, MCHC 32.7, RDW Std Deviation 46.8 H, RDW Coeff of Karen 15.1 H, Plt Count 106 L, MPV 10.5, Immature Gran % (Auto) 0.200, Neut % (Auto) 53.8, Lymph % (Auto) 28.5, [place] % (Auto) 13.3 H, Eos % (Auto) 3.4, Baso % (Auto) 0.8, Absolute Neuts (auto) 4.5, Absolute Lymphs (auto) 2.37, Nucleated RBC % 0, Platelet Estimate SLT DEC, RBC Morphology NORM C+C 12/19/19 11:35: Sodium 133 L, Potassium 4.5, Chloride 103, Carbon Dioxide 23.0, Anion Gap 7, BUN 24 H, Creatinine 1.06 H, Estim Creat Clear Calc 39.68, Est GFR (MDRD) Af Amer 65, Est GFR (MDRD) Non-Af 54 L, BUN/Creatinine Ratio 22.6 H, Glucose 257 H, Calcium 9.2, Total Bilirubin 0.60, AST 54 H, ALT 50, Alkaline Phosphatase 171 H, Total Protein 8.2, Albumin 3.1 L, Globulin 5.1 H, Albumin/Globulin Ratio 0.6 L 12/19/19 16:43: POC Glucose 253 H 12/19/19 21:36: POC Glucose 152 H 12/20/19 05:04: Sodium 136, Potassium 3.8, Chloride 104, Carbon Dioxide 26.0, Anion Gap 6, BUN 15, Creatinine 0.70, Estim Creat Clear Calc 42.07, Est GFR (MDRD) Af Amer 105, Est GFR (MDRD) Non-Af 87, BUN/Creatinine Ratio 21.3 H, Glucose 97, Calcium 8.8 12/20/19 08:20: POC Glucose 91 Current Medications Hydrocodone Bitart/Acetaminophen ([place] 5mg-325mg) 1 tablet PO Q6H PRN PRN PRN Reason: Pain Score 6-10/10 Last Admin: 12/20/19 06:02 Dose: 1 tablet Documented by: Cyclobenzaprine HCl (Flexeril) 10 mg PO BID [facility] Last Admin: 12/20/19 09:53 Dose: 10 mg Documented by: Dextrose (D50w Syringe) 0 gm IV X1 PRN; Protocol PRN Reason: Hypoglycemia Dextrose (D50w Syringe) 0 gm IV X1 PRN; Protocol PRN Reason: Hypoglycemia Docusate Sodium (Colace) 100 mg PO BID PRN PRN PRN Reason: Constipation Empagliflozin (Jardiance) 25 mg PO DAILY [facility] Last Admin: 12/20/19 09:53 Dose: 25 mg Documented by: Enoxaparin Sodium (Lovenox) 40 mg SC DAILY@0600 [facility] Last Admin: 12/20/19 06:07 Dose: 40 mg Documented by: Fluticasone Propionate (Flonase Nasal [place]) 2 spray NASAL DAILY [facility] Last Admin: 12/20/19 09:52 Dose: Not Given Documented by: Folic Acid (Folic Acid) 1 mg PO DAILY [facility] Last Admin: 12/20/19 09:53 Dose: 1 mg Documented by: Gabapentin (Neurontin) 400 mg PO TID [facility] Last Admin: 12/20/19 06:03 Dose: 400 mg Documented by: Glucagon () 1 mg IM .X1 PRN PRN Reason: Hypoglycemia Glucagon () 1 mg IM .X1 PRN PRN Reason: Hypoglycemia Hydrochlorothiazide () 12.5 mg PO DAILY [facility] Last Admin: 12/20/19 09:53 Dose: 12.5 mg Documented by: Piperacillin Sod/Tazobactam (Sod 3.375 gm/ Sodium Chloride) 50 mls @ 12.5 mls/hr IV Q8 [facility] Last Infusion: 12/20/19 11:53 Dose: Infused Documented by: Vancomycin IV Pharmacy to Dose (1 ea/ Sodium Chloride) 500 mls @ 250 mls/hr IV X1 PRN; Protocol PRN Reason: Rx to Dose Vancomycin HCl () 500 mg in 100 mls @ 100 mls/hr IV Q12H [facility] Last Infusion: 12/20/19 04:40 Dose: Infused Documented by: Insulin Glargine (Lantus ([facility])) 42 units SC QHS [facility] Last Admin: 12/19/19 21:49 Dose: 42 u Documented by: Insulin Human Lispro (Humalog Kwikpen ([facility])) 5 unit SC 0800,1200,1700 [facility] Last Admin: 12/20/19 11:55 Dose: 5 units Documented by: Insulin Human Lispro (Humalog Kwikpen ([facility])) 0 unit SC TIDAC [facility]; Protocol Last Admin: 12/20/19 11:54 Dose: Not Given Documented by: Losartan Potassium (Cozaar) 50 mg PO DAILY [facility] Last Admin: 12/20/19 09:53 Dose: 50 mg Documented by: Melatonin (Melatonin) 5 mg PO QHS PRN PRN PRN Reason: Sleep Last Admin: 12/19/19 23:42 Dose: 5 mg Documented by: Metformin [facility] (Glucophage) [facility] Last Admin: 12/20/19 08:35 Dose: 1,000 mg Documented by: Mirtazapine (Remeron) 15 mg PO QHS [facility] Last Admin: 12/19/19 21:48 Dose: Not Given Documented by: Nutritional Formula ([place]ancho - [place] Flavor) 1 [facility] Nutritional Formula (Lactose Free) (Glucerna Shake) 120 ml PO 4X/DAY [facility] Ondansetron HCl (Zofran) 4 mg IV Q8H PRN PRN PRN Reason: NAUSEA/VOMITING Oxybutynin Chloride (Ditropan) 5 mg PO BID [facility] Last Admin: 12/20/19 09:53 Dose: 5 mg Documented by: Sodium Chloride () 10 - 40 ml IV UD PRN PRN Reason: SALINE FLUSH Last Admin: 12/19/19 23:43 Dose: 10 ml Documented by: Tizanidine HCl (Zanaflex) 4 mg PO BID [facility] Last Admin: 12/20/19 09:53 Dose: 4 mg Documented by: Venlafaxine HCl (Effexor Xr) 300 mg PO DAILY [facility] Last Admin: 12/20/19 09:53 Dose: 300 mg Documented by: STROKE Vital Signs/Narrative: Vital Signs Temp Pulse Resp BP Pulse Ox 12/20/19 08:29 97.4 F L 78 18 169/125 H 94 Medical Necessity - Tobacco Use Smoking Status: Never smoker Tobacco Use: Non-smoker Assessment/Plan All Active Problems (Last Updated 12/19/19 @ 13:[address] 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 It got worse on December 15. Patient further admitted for IV antibiotics after failure of outpatient antibiotic. 1. Left foot cellulitis, refractory/failure to outpatient therapy. Patient was [facility] on [facility] floor. ESR 40 and CRP 17.7. Started on IV Vanco and Zosyn. Infectious disease on consultation. CT lower extremity reviewed shows no obvious abscess, gas in soft tissue. No visualized bony erosion. Suspicion of possible nondisplaced fracture within proximal phalanx of fifth digit. Clinically, patient has cellulitis around left great toe and distal region of left foot. 2. Diabetes mellitus type 2 complicated with diabetic neuropathy: Patient on numerous medications, including: Metformin, empagliflozin, degludec and prandial insulin. sliding scale insulin added as well as continue with her home medications. Glucose is controlled, between 90 to 150 mg/dL. A1c 8.7. 3. Psoriatic arthritis: Patient methotrexate as well as ixekizumab being held 4. VTE prophylaxis: SCDs have been ordered by the primary team. 5. Advanced care planning: Patient wishes to be full CODE STATUS at this time. Laboratory Results 12/19/19 06:10: Hemoglobin A1c 8.7 H 12/19/19 06:10: ESR 40 H 12/19/19 06:10: C-React Prot High Sens 17.70 H 12/19/19 11:35: Plt Count 106 L, Platelet Estimate SLT DEC, RBC Morphology NORM C+C 12/19/19 16:43: POC Glucose 253 H 12/19/19 21:36: POC Glucose 152 H 12/20/19 05:04: Sodium 136, Potassium 3.8, Chloride 104, Carbon Dioxide 26.0, Anion Gap 6, BUN 15, Creatinine 0.70, Estim Creat Clear Calc 42.07, Est GFR (MDRD) Af Amer 105, Est GFR (MDRD) Non-Af 87, BUN/Creatinine Ratio 21.3 H, Glucose 97, Calcium 8.8 12/20/19 08:20: POC Glucose 91 Clinical Impression(s) from Imaging Studies Foot X-Ray 12/19/19 12:27 IMPRESSION: Soft tissue edema no visualized fracture. No visualized bony erosion or gas formation. Possible terminating nondisplaced fracture of the fifth proximal phalanx Lower Extremity CT 12/19/19 12:28 IMPRESSION: No visualized abscess. No visualized gas in the soft tissues. No visualized bony erosion. There may be a nondisplaced fracture within the proximal phalanx of the fifth digit image #58 series 3. If There is further concern for osteomyelitis could consider follow-up MRI. Inpatient E&M: 67917 Subs Hosp L2
[2019-12-20 12:19] LABS: Absolute Lymphocyte Count 2.63 X10^3/uL (0.83-4.51); Absolute Neutrophil Count 3.4 X10^3/uL (2.0-7.7); Basophil# 0.05 X10^3/uL; Basophil% 0.7 % (0-1); Eosinophils% 4.2 % (0-5); Hematocrit 34.9 % (37-47); Hemoglobin 11.3 g/dL (12.0-15.0); Lymphocyte # 2.63 X10^3/ul (4.0); Mean Corp Hgb Conc 32.4 g/dL (32-36); Mean Corpuscular Hgb 28.2 pg (27.0-32.0); Mean Platelet Vol. 11.1 fl (6.2-12.0); Monocyte# 0.69 X10^3/uL; Monocyte% 9.7 % (0-10); NRBC Flagged by Analyzer 0 % (0-5); Neutrophil # 3.41 X10^3/uL (2.7-7.7); Neutrophil % 48.1 % (47-70); POSITIVE COUNT YES; Platelet Count 98 K/mm3 (150-450); RBC Distribution Width CV 14.8 % (11.6-14.6); RBC Distribution Width SD 47.5 fl (35.1-43.9); Red Blood Count 4.01 M/mm3 (4.2-5.4); White Blood Count 7.1 K/mm3 (4.4-11.0)
[2019-12-20 12:35] LABS: Bedside Glucose 124 mg/dL (70-110)
--- NOTE | 2019-12-20 13:05 | PN_ITS ---
Patient Problems: Active and Suspected Problems (Last Updated 12/19/19 @ 13:[address] Sean Jimenes, DO) Arrhythmia (Acute) Coronary artery disease (Acute) Memory loss (Acute) Type 2 diabetes mellitus with diabetic polyneuropathy (Acute) Psoriatic arthritis (Acute) Dizziness (Acute) Loss of balance (Acute) Risk for falls (Acute) Subjective: This 74-year-old female with multiple comorbidities was seen bedside today for follow-up left hallux ulcer with lower extremity ascending cellulitis. She relates her pain is decreased to 5 out of 10. She denies fever, chill, nausea, vomiting. She thinks her redness is decreasing. She continues with IV antibiotics. - Physical Exam Vitals/I&O's: Vital Signs Temp Pulse Resp BP Pulse Ox 97.4 F L 78 18 169/125 H 94 12/20/19 08:29 12/20/19 08:29 12/20/19 08:29 12/20/19 08:29 12/20/19 08:29 Oxygen Delivery Method Nasal Cannula Weight: 83.064 kg Body Mass Index (BMI) 32.4 Intake and Output for Last 24 Hours 12/18/19 12/19/19 12/20/19 23:59 23:59 23:59 Intake Total 1045 / 1045 1890 / 1890 Balance 1045 / 1045 1890 / 1890 General: Alert, Oriented x3, Cooperative Extremities: No cyanosis, Capillary Refill Less than 3 Seconds, No Calf Tenderness, Diminished Peripheral Pulses Skin: Ulcer/ Wound - Skin discontinuity plantar hallux cluster with no purulence on expression or odor. The erythema in the adjacent location is decreased intensity and decrease location. There is no interdigital maceration or necrosis. The adjacent skin is atrophic and hairless Musculoskeletal: No Tenderness to Palpation of Joints or Extremities, Muscle Wasting, - - Compartments of the foot remained soft. There is no bogginess or fluctuance on palpation Neurological: - - Lack of normal epicritic sensation light touch Psych/Mental Status: Normal Affect, Appropriate Laboratory Results 12/19/19 06:10: Hemoglobin A1c 8.7 H 12/19/19 06:10: C-React Prot High Sens 17.70 H 12/19/19 16:43: POC Glucose 253 H 12/19/19 21:36: POC Glucose 152 H 12/20/19 05:04: Sodium 136, Potassium 3.8, Chloride 104, Carbon Dioxide 26.0, Anion Gap 6, BUN 15, Creatinine 0.70, Estim Creat Clear Calc 42.07, Est GFR (MDRD) Af Amer 105, Est GFR (MDRD) Non-Af 87, BUN/Creatinine Ratio 21.3 H, Glucose 97, Calcium 8.8 12/20/19 05:04: WBC 7.1, RBC 4.01 L, Hgb 11.3 L, Hct 34.9 L, MCV 87.0, MCH 28.2, MCHC 32.4, RDW Std Deviation 47.5 H, RDW Coeff of Karen 14.8 H, Plt Count 98 L, MPV 11.1, Immature Gran % (Auto) 0.300, Neut % (Auto) 48.1, Lymph % (Auto) 37.0, [place] % (Auto) 9.7, Eos % (Auto) 4.2, Baso % (Auto) 0.7, Absolute Neuts (auto) 3.4, Absolute Lymphs (auto) 2.63, Nucleated RBC % 0 12/20/19 08:20: POC Glucose 91 12/20/19 11:49: POC Glucose 124 H Current Medications Hydrocodone Bitart/Acetaminophen ([place] 5mg-325mg) 1 tablet PO Q6H PRN PRN PRN Reason: Pain Score 6-10/10 Last Admin: 12/20/19 06:02 Dose: 1 tablet Documented by: Cyclobenzaprine HCl (Flexeril) 10 mg PO BID [facility] Last Admin: 12/20/19 09:53 Dose: 10 mg Documented by: Dextrose (D50w Syringe) 0 gm IV X1 PRN; Protocol PRN Reason: Hypoglycemia Dextrose (D50w Syringe) 0 gm IV X1 PRN; Protocol PRN Reason: Hypoglycemia Docusate Sodium (Colace) 100 mg PO BID PRN PRN PRN Reason: Constipation Empagliflozin (Jardiance) 25 mg PO DAILY [facility] Last Admin: 12/20/19 09:53 Dose: 25 mg Documented by: Enoxaparin Sodium (Lovenox) 40 mg SC DAILY@0600 [facility] Last Admin: 12/20/19 06:07 Dose: 40 mg Documented by: Fluticasone Propionate (Flonase Nasal [place]) 2 spray NASAL DAILY [facility] Last Admin: 12/20/19 09:52 Dose: Not Given Documented by: Folic Acid (Folic Acid) 1 mg PO DAILY [facility] Last Admin: 12/20/19 09:53 Dose: 1 mg Documented by: Gabapentin (Neurontin) 400 mg PO TID [facility] Last Admin: 12/20/19 06:03 Dose: 400 mg Documented by: Glucagon () 1 mg IM .X1 PRN PRN Reason: Hypoglycemia Glucagon () 1 mg IM .X1 PRN PRN Reason: Hypoglycemia Hydrochlorothiazide () 12.5 mg PO DAILY [facility] Last Admin: 12/20/19 09:53 Dose: 12.5 mg Documented by: Piperacillin Sod/Tazobactam (Sod 3.375 gm/ Sodium Chloride) 50 mls @ 12.5 m ls/hr IV Q8 [facility] Last Infusion: 12/20/19 11:53 Dose: Infused Documented by: Insulin Glargine (Lantus (Bkc)) 42 units SC QHS [facility] Last Admin: 12/19/19 21:49 Dose: 42 u Documented by: Insulin Human Lispro (Humalog Kwikpen (Bkc)) 5 unit SC 0800,1200,1700 [facility] Last Admin: 12/20/19 11:55 Dose: 5 units Documented by: Insulin Human Lispro (Humalog Kwikpen (Bkc)) 0 unit SC TIDAC [facility]; Protocol Last Admin: 12/20/19 11:54 Dose: Not Given Documented by: Losartan Potassium (Cozaar) 50 mg PO DAILY [facility] Last Admin: 12/20/19 09:53 Dose: 50 mg Documented by: Melatonin (Melatonin) 5 mg PO QHS PRN PRN PRN Reason: Sleep Last Admin: 12/19/19 23:42 Dose: 5 mg Documented by: Metformin HCl (Glucophage) 1,000 mg PO BIDCM [facility] Last Admin: 12/20/19 08:35 Dose: 1,000 mg Documented by: Mirtazapine (Remeron) 15 mg PO QHS [facility] Last Admin: 12/19/19 21:48 Dose: Not Given Documented by: Nutritional Formula (Sancho - [place] Flavor) 1 packet PO BIDCM [facility] Nutritional Formula (Lactose Free) (Glucerna Shake) 120 ml PO 4X/DAY [facility] Ondansetron HCl (Zofran) 4 mg IV Q8H PRN PRN PRN Reason: NAUSEA/VOMITING Oxybutynin Chloride (Ditropan) 5 mg PO BID [facility] Last Admin: 12/20/19 09:53 Dose: 5 mg Documented by: Sodium Chloride () 10 - 40 ml IV UD PRN PRN Reason: SALINE FLUSH Last Admin: 12/19/19 23:43 Dose: 10 ml Documented by: Tizanidine HCl (Zanaflex) 4 mg PO BID [facility] Last Admin: 12/20/19 09:53 Dose: 4 mg Documented by: Venlafaxine HCl (Effexor Xr) 300 mg PO DAILY [facility] Last Admin: 12/20/19 09:53 Dose: 300 mg Documented by: Medical Necessity - Tobacco Use Smoking Status: Never smoker Tobacco Use: Non-smoker Assessment/Plan All Active Problems (Last Updated 12/19/19 @ 13:[address] Sean Jimenes, ) Breast mass, right (Acute) Ulcer of left foot due to type 2 diabetes mellitus (Acute) Uncontrolled type 2 diabetes mellitus (Acute) Obesity (Acute) Depression (Acute) Anxiety (Acute) GERD (gastroesophageal reflux disease) (Acute) PVD (peripheral vascular disease) (Acute) Pain in left foot (Acute) Type 2 diabetes mellitus with diabetic polyneuropathy (Acute) Cellulitis of left foot (Acute) Peripheral vascular disease (Ruled-out) Arrhythmia (Acute) Coronary artery disease (Acute) Memory loss (Acute) Type 2 diabetes mellitus with diabetic polyneuropathy (Acute) Psoriatic arthritis (Acute) Dizziness (Acute) Loss of balance (Acute) Risk for falls (Acute) Left foot cellulitis, failed outpatient oral antibiotics, improving since admission Ulcer left hallux with fat layer exposed Diabetes with neuropathy Left foot pain Other comorbidities: Diabetes with neuropathy, psoriatic arthritis, cardiac arrhythmia, obesity, depression I reviewed and discussed her case.She is afebrile at this time and her vitals are stable. She does not have leukocytosis; white blood cell count 7.1. Hemoglobin A1c was noted at 8.7%. Both the x-ray and CT scan were negative for abscess, osseous erosions or destruction, foreign body, soft tissue emphysema, abscess, or acute injuries. She was advised to continue with vancomycin and Zosyn. Infectious disease was asked to be on consultation and input will be greatly appreciated. To continue with ulcer dressing care of Aquacel Ag daily, and she is advised to place weight on her heel with surgical shoe use. She also had a culture obtained in the outpatient setting which is only growing out Staphylococcus aureus so far. She had a recent noninvasive vascular study also performed which did not demonstrate any occlusive arterial disease. She has triphasic bilateral lower extremity waveforms noted. Her medical comorbidities are noted and medicine team was asked to be on consultation for management of medical comorbidities and DVT prophylaxis is appreciated. Please do not hesitate to call if you have any questions. She is demonstrating initial improvement during this hospital mission. I'll continue to follow her close while in house. Aminata Yates DPM, [facility] [phone]
--- NOTE | 2019-12-20 13:26 | CASEMGMT ---
Assessment- SW completed assessment with patient at bedside. Living situation- Patient lives alone in a 1 story home with a couple entry steps. PCP: Dr Cadena with [facility] in [place] Specialists: Dr Yates- Podiatry, Dr Celaya-Software Analyst, and Dr Henderson- Dermatology Pharmacy: [facility] DME: cane, walker, rollator, shower chair, hand held shower, grab bars, raised toilet seat, and medical alert button ADL's/IADL's: Patient uses her walker regularly, she does not drive, she bathes herself, but usually only does this when her daughter is present, and she manages her own meds. However, after more discussion a nurse from [facility] does come in and check to make sure she is taking her meds correctly Past SNF/rehab: None Past HH: Yes. Could not remember the name LW: None POA: None Plan: Patient plans on going home at discharge. She is open to home health, but will not go to a SNF. She is pretty sure her granddaughter will be staying with her when she is discharged. DEBBIE and RN CM to follow for d/c planning. DEBBIE called [facility] and spoke to the individual on the coverage line. She could not get the computer to bring up the needed information. She said she would call DEBBIE back when she gets the information off of the computer. Fouzia CHANG DERRICK BOAT OPERATOR
[2019-12-20 13:29] VITALS: BP 135/115; PULSE 72; RESP 18; TEMP 36.6; O2SAT 98
[2019-12-20] MEDS: Glucerna Shake 120 ML LIQUID PO (13:41)
--- NOTE | 2019-12-20 15:00 | CON.PCM_ITS ---
Problem List (1) Ulcer of left foot due to type 2 diabetes mellitus Status: Acute Comment: Left great toe [place] 2 Reason for Consult: L toe infection Consulted by: Dr. Keith History of Present Illness: The patient is a 74 year old Fwith DM neuropathy, presented 4/5 with several days of L 1st toe pain, redness, swelling, purulent drainage. Had recently been on augmentin and cipro as an outpt with temporary improvement. No fever. Wound cxs with mssa. Came to hospital, started vanc/zosyn, feeling better, foot less red, pain improved. Full ROS performed and neg except as noted above. - Medical History Past Medical History (Chronic Problems): Chronic Problems (Last Updated 12/19/19 @ 13:[address] 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) Chronic pain (Chronic) Allergies/Adverse Reactions: Allergies buprenorphine [From [place]] Allergy (Verified 11/18/19 15:30) Hives Home Medications: Ambulatory Orders Medication Instructions Recorded Gabapentin [Neurontin] 400 mg PO TID 03/31/14 Tizanidine HCl 4 mg PO BID 03/31/14 Biotin 1,000 mcg PO DAILY 11/18/19 Hydrocortisone 2.5% Crm [Hytone] 1 applic TOPICAL BID PRN PRN 11/18/19 Insulin Aspart [Novolog Flexpen 5 units SUBCUT TIDCM 11/18/19 ([facility])] Insulin Degludec/Liraglutide 42 units SQ QHS 11/18/19 [Xultophy 100 Unit-3.6 mg/ml] Melatonin 5 mg PO QHS PRN 11/18/19 Metformin HCl 1,000 mg PO BID 11/18/19 Mirtazapine [Remeron] 15 mg PO QHS 11/18/19 Oxybutynin [Ditropan] 5 mg PO BID 11/18/19 Triamcinolone 0.1% Cream [Kenalog] 1 applic TOPICAL BID 11/18/19 Amoxicillin/Potassium Clav 1 ea PO BID 12/19/19 [Augmentin 875-125 Tablet] Ciprofloxacin [Cipro] 500 mg PO BID 12/19/19 Clobetasol Propionate/Emoll 15 gm TP PRN PRN 12/19/19 [Clobetasol Emollient 0.05% Crm] Cyclobenzaprine HCl 10 mg PO BID 12/19/19 Empagliflozin [Jardiance] 25 mg PO DAILY 12/19/19 Fluticasone 0.05% [Flonase Nasal 2 spray NASAL DAILY 12/19/19 [place]] Folic Acid 1 mg PO DAILY 12/19/19 Hydrochlorothiazide 12.5 mg PO DAILY 12/19/19 Hydrocodone/Acetaminophen [[place] 1 tab PO BID PRN 12/19/19 5-325 Tablet] Losartan Potassium [Cozaar] 50 mg PO DAILY 12/19/19 Methotrexate Sodium [Methotrexate] 2.5 mg PO QWEEK 12/19/19 traMADol [Ultram (G)] 50 mg PO TID 12/19/19 - Social History Tobacco Use: non-smoker Vital Signs Temp Pulse Resp BP Pulse Ox 97.8 F 72 18 135/115 H 98 12/20/19 13:29 12/20/19 13:29 12/20/19 13:29 12/20/19 13:29 12/20/19 13:29 Oxygen Delivery Method Room Air Weight: 83.064 kg Body Mass Index (BMI) 32.4 Laboratory Tests Past 24 Hrs 12/20/19 12/20/19 05:04 05:04 WBC 7.1 RBC 4.01 L Hgb 11.3 L Hct 34.9 L MCV 87.0 MCH 28.2 MCHC 32.4 RDW Std Deviation 47.5 H RDW Coeff of Karen 14.8 H Plt Count 98 L MPV 11.1 Immature Gran % (Auto) 0.300 Neut % (Auto) 48.1 Lymph % (Auto) 37.0 [place] % (Auto) 9.7 Eos % (Auto) 4.2 Baso % (Auto) 0.7 Absolute Neuts (auto) 3.4 Absolute Lymphs (auto) 2.63 Nucleated RBC % 0 Sodium 136 Potassium 3.8 Chloride 104 Carbon Dioxide 26.0 Anion Gap 6 BUN 15 Creatinine 0.70 Estim Creat Clear Calc 42.07 Est GFR (MDRD) Af Amer 105 Est GFR (MDRD) Non-Af 87 BUN/Creatinine Ratio 21.3 H Glucose 97 Calcium 8.8 - Other Studies Radiology: [] reviewed Other Studies: [] Route of nutrition/ use of supplements: [] Nutritional Intake: [] IV Site: [] Fields Catheter: [] - Physical Exam General: Alert, Cooperative, No apparent distress HEENT: Atraumatic, PERRLA, EOMI Neck: Supple, No Nodes Lungs: Clear to auscultation, Normal air movement Cardiovascular: Regular rate, Regular Rhythm Abdomen: Soft, Non Tender, Non-Distended Extremities: No edema Skin: Ulcer/ Wound - L 1st toe small ulceration. L foot with fading erythema. IV Site: Peripheral, without redness Musculoskeletal: No Tenderness to Palpation of Joints or Extremities Neurological: Cranial nerves II-XII grossly intact - Assessment/Plan Antibiotics: [] Assessment/Plan: [] Active and Suspected Problems (Last Updated 12/19/19 @ 13:[address] 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 Wound cxs with mssa. Narrow abx to cefazolin. No abscess or osteo seen on CT. Podiatry following. I do not see a need for bone scan at this time. Plan will be for home tomorrow on po duricef 1gm bid for 7-10 more days. Will follow, d/w Dr. Keith.
[2019-12-20 17:01] LABS: Bedside Glucose 146 mg/dL (70-110)
[2019-12-20 19:55] VITALS: BP 158/69; PULSE 73; RESP 18; TEMP 36.6; O2SAT 95
[2019-12-20] MEDS: Mirtazapine 15 MG Tablet PO (22:12)
[2019-12-20] MEDS: Cefazolin 2 GM in 0.9% Normal Saline 100 ML IV (22:15)
[2019-12-20 22:41] LABS: Bedside Glucose 121 mg/dL (70-110)
[2019-12-21 03:00] VITALS: BP 133/67; PULSE 71; RESP 16; TEMP 36.4; O2SAT 97
[2019-12-21] MEDS: HYDROcodone Bitartrate/Apap 5/325 Tablet PO ×2 (03:08→21:41)
[2019-12-21] MEDS: Gabapentin 400 MG Capsule PO ×3 (05:46→21:41)
[2019-12-21] MEDS: Cefazolin 2 GM in 0.9% Normal Saline 100 ML IV ×3 (05:46→21:42)
[2019-12-21] MEDS: Enoxaparin 40 MG/0.4 ML Syringe SC (05:48)
--- NOTE | 2019-12-21 06:38 | PCM.PROGNOTE ---
Patient Problems: Active and Suspected Problems (Last Updated 12/19/19 @ 13:[address] Sean Jimenes, DO) Arrhythmia (Acute) Coronary artery disease (Acute) Memory loss (Acute) Type 2 diabetes mellitus with diabetic polyneuropathy (Acute) Psoriatic arthritis (Acute) Dizziness (Acute) Loss of balance (Acute) Risk for falls (Acute) Subjective: This 74-year-old female seen bedside for follow-up of left foot infection. She relates new development of drainage that has appeared overnight. Her pain continues to decrease. Her redness and swelling are also decreasing. She denies fever, chill, nausea, vomiting. - Physical Exam Vitals/I&O's: Vital Signs Temp Pulse Resp BP Pulse Ox 97.5 F L 71 16 133/67 H 97 12/21/19 03:00 12/21/19 03:00 12/21/19 03:00 12/21/19 03:00 12/21/19 03:00 Oxygen Delivery Method Room Air Weight: 83.064 kg Body Mass Index (BMI) 32.4 Intake and Output for Last 24 Hours 12/19/19 12/20/19 12/21/19 23:59 23:59 23:59 Intake Total 1045 / 1045 3410 / 3410 500 / 500 Balance 1045 / 1045 3410 / 3410 500 / 500 General: Alert, Oriented x3, Cooperative Extremities: No cyanosis, Capillary Refill Less than 3 Seconds, No Calf Tenderness, Diminished Peripheral Pulses, Edema Skin: Ulcer/ Wound - Skin discontinuity to plantar left hallux now with purulent drainage on expression. There is continued decrease in erythema, edema, and streaking. Upon incision and drainage to the plantar hallux there is about 1-1/2 cc of purulence without direct probing to bone or joint. There is no visualized necrosis or maceration. There is an area to the dorsal hallux of localized erythema and a small stab incision was made in this location and there was no purulence noted from this site. Musculoskeletal: No Tenderness to Palpation of Joints or Extremities, Muscle Wasting, - - Tenderness decreased to plantar hallux ulcer. There is no additional bogginess or fluctuance to the left lower extremity Neurological: - - Lack of epicritic sensation to light touch is noted Psych/Mental Status: Normal Affect, Appropriate Laboratory Results 12/20/19 05:04: WBC 7.1, RBC 4.01 L, Hgb 11.3 L, Hct 34.9 L, MCV 87.0, MCH 28.2, MCHC 32.4, RDW Std Deviation 47.5 H, RDW Coeff of Karen 14.8 H, Plt Count 98 L, MPV 11.1, Immature Gran % (Auto) 0.300, Neut % (Auto) 48.1, Lymph % (Auto) 37.0, [place] % (Auto) 9.7, Eos % (Auto) 4.2, Baso % (Auto) 0.7, Absolute Neuts (auto) 3.4, Absolute Lymphs (auto) 2.63, Nucleated RBC % 0 12/20/19 08:20: POC Glucose 91 12/20/19 11:49: POC Glucose 124 H 12/20/19 16:22: POC Glucose 146 H 12/20/19 22:11: POC Glucose 121 H Current Medications Hydrocodone Bitart/Acetaminophen ([place] 5mg-325mg) 1 tablet PO Q6H PRN PRN PRN Reason: Pain Score 6-10/10 Last Admin: 12/21/19 03:08 Dose: 1 tablet Documented by: Cyclobenzaprine HCl (Flexeril) 10 mg PO BID [facility] Last Admin: 12/20/19 22:12 Dose: 10 mg Documented by: Dextrose (D50w Syringe) 0 gm IV X1 PRN; Protocol PRN Reason: Hypoglycemia Dextrose (D50w Syringe) 0 gm IV X1 PRN; Protocol PRN Reason: Hypoglycemia Docusate Sodium (Colace) 100 mg PO BID PRN PRN PRN Reason: Constipation Empagliflozin (Jardiance) 25 mg PO DAILY [facility] Last Admin: 12/20/19 09:53 Dose: 25 mg Documented by: Enoxaparin Sodium (Lovenox) 40 mg SC DAILY@0600 [facility] Last Admin: 12/21/19 05:48 Dose: 40 mg Documented by: Fluticasone Propionate (Flonase Nasal [place]) 2 spray NASAL DAILY [facility] Last Admin: 12/20/19 09:52 Dose: Not Given Documented by: Folic Acid (Folic Acid) 1 mg PO DAILY [facility] Last Admin: 12/20/19 09:53 Dose: 1 mg Documented by: Gabapentin (Neurontin) 400 mg PO TID [facility] Last Admin: 12/21/19 05:46 Dose: 400 mg Documented by: Glucagon () 1 mg IM .X1 PRN PRN Reason: Hypoglycemia Glucagon () 1 mg IM .X1 PRN PRN Reason: Hypoglycemia Hydrochlorothiazide () 12.5 mg PO DAILY [facility] Last Admin: 12/20/19 09:53 Dose: 12.5 mg Documented by: Cefazolin Sodium 2 gm/ Sodium (Chloride) 110 mls @ 150 mls/hr IV Q8 [facility] Last Admin: 12/21/19 05:46 Dose: 150 mls/hr Documented by: Insulin Glargine (Lantus (Bkc)) 42 units SC QHS [facility] Last Admin: 12/20/19 22:12 Dose: 42 u Documented by: Insulin Human Lispro (Humalog Kwikpen ([facility])) 5 unit SC 0800,1200,1700 [facility] Last Admin: 12/20/19 16:25 Dose: 5 units Documented by: Insulin Human Lispro (Humalog Kwikpen ([facility])) 0 unit SC TIDAC [facility]; Protocol Last Admin: 12/20/19 16:26 Dose: Not Given Documented by: Losartan Potassium (Cozaar) 50 mg PO DAILY [facility] Last Admin: 12/20/19 09:53 Dose: 50 mg Documented by: Melatonin (Melatonin) 5 mg PO QHS PRN PRN PRN Reason: Sleep Last Admin: 12/19/19 23:42 Dose: 5 mg Documented by: Metformin HCl (Glucophage) 1,000 mg PO BIDCM [facility] Last Admin: 12/20/19 16:25 Dose: 1,000 mg Documented by: Mirtazapine (Remeron) 15 mg PO QHS [facility] Last Admin: 12/20/19 22:12 Dose: 15 mg Documented by: Nutritional Formula (Sancho - [place] Flavor) 1 packet PO BIDCM [facility] Last Admin: 12/20/19 16:25 Dose: 1 packet Documented by: Nutritional Formula (Lactose Free) (Glucerna Shake) 120 ml PO 4X/DAY [facility] Last Admin: 12/20/19 22:20 Dose: Not Given Documented by: Ondansetron HCl (Zofran) 4 mg IV Q8H PRN PRN PRN Reason: NAUSEA/VOMITING Oxybutynin Chloride (Ditropan) 5 mg PO BID [facility] Last Admin: 12/20/19 22:12 Dose: 5 mg Documented by: Sodium Chloride () 10 - 40 ml IV UD PRN PRN Reason: SALINE FLUSH Last Admin: 12/19/19 23:43 Dose: 10 ml Documented by: Tizanidine HCl (Zanaflex) 4 mg PO BID [facility] Last Admin: 12/20/19 22:11 Dose: 4 mg Documented by: Venlafaxine HCl (Effexor Xr) 300 mg PO DAILY [facility] Last Admin: 12/20/19 09:53 Dose: 300 mg Documented by: Medical Necessity - Tobacco Use Smoking Status: Never smoker Tobacco Use: Non-smoker Assessment/Plan All Active Problems (Last Updated 12/19/19 @ 13:[address] Sean Jimenes, DO) Breast mass, right (Acute) Ulcer of left foot due to type 2 diabetes mellitus (Acute) Uncontrolled type 2 diabetes mellitus (Acute) Obesity (Acute) Depression (Acute) Anxiety (Acute) GERD (gastroesophageal reflux disease) (Acute) PVD (peripheral vascular disease) (Acute) Pain in left foot (Acute) Type 2 diabetes mellitus with diabetic polyneuropathy (Acute) Cellulitis of left foot (Acute) Peripheral vascular disease (Ruled-out) Arrhythmia (Acute) Coronary artery disease (Acute) Memory loss (Acute) Type 2 diabetes mellitus with diabetic polyneuropathy (Acute) Psoriatic arthritis (Acute) Dizziness (Acute) Loss of balance (Acute) Risk for falls (Acute) Left foot cellulitis, failed outpatient oral antibiotics, improving since admission Plantar left hallux abscess development Ulcer left hallux with fat layer exposed Diabetes with neuropathy Left foot pain Other comorbidities: Diabetes with neuropathy, psoriatic arthritis, cardiac arrhythmia, obesity, depression I reviewed and discussed her case. She is afebrile at this time and her vitals are stable. CBC and CMP results are pending this morning. Both the x-ray and CT scan were negative for abscess, osseous erosions or destruction, foreign body, soft tissue emphysema, abscess, or acute injuries. She is on cefazolin and infectious disease is on consultation. This morning there is identification of purulent small abscess formation to the plantar left hallux and I recommend performing a drainage procedure. Consent was obtained for incision and drainage of left foot and this is also discussed with her daughter, Katey, via phone. The preprocedure indication, planned procedure, benefits, risk, complications, and anticipated healing time management were discussed in detail with the patient. She understands elects proceed with surgery. She understands failed healing and further infection and limb loss are potential complications. The benefits outweigh the risks at this time. The consent was obtained and the designated limb was clarified with witness. The left foot was anesthetized with 17 cc of 1% lidocaine plain and first ray block fashion. Once appropriate anesthesia was obtained. A 15 blade scalpel was used to perform an incision and drainage after chlorhexidine prep was performed. A 1-1/2 cm curvilinear incision was made to the plantar hallux over the area of purulence loculated and approximately 1 1/2 cc were expressed. The tissue appeared healthy after copious half liter saline irrigation. A clean 15 blade was also used to perform a small half centimeter stab incision to the dorsal aspect of the left hallux where there is a local area of erythema and there is no purulence noted from this site. There is also no purulence noted with passive manipulation of the hallux interphalangeal joint with palpation to adjacent structures. The nail unit did not appear to be involved. Again copious saline irrigation was performed and a Betadine wicked gauze dressing was applied deep to the drainage site. Next, a compression layer dressing with Kerlix, ABD pad, and Basim wrap was applied. Deep aerobic, anaerobic, and MRSA PCR cultures were obtained from this site and the results are pending. She tolerated the procedure well and will continue to elevate her left limb today. Her medical comorbidities are noted and medicine team is on consultation. Please do not hesitate to call if you have any questions. I'll continue to follow her close while in house. I recommend reevaluation tomorrow morning and discharge planning for tomorrow at the earliest. Aminata Yates DPM, [facility] [phone]
[2019-12-21 06:50] LABS: Bedside Glucose 110 mg/dL (70-110)
[2019-12-21 08:32] LABS: Absolute Lymphocyte Count 2.57 X10^3/uL (0.83-4.51); Absolute Neutrophil Count 2.7 X10^3/uL (2.0-7.7); Basophil# 0.08 X10^3/uL; Basophil% 1.3 % (0-1); Eosinophil# 0.33 X10^3/uL; Eosinophils% 5.2 % (0-5); Hematocrit 36.6 % (37-47); Hemoglobin 11.9 g/dL (12.0-15.0); Lymphocyte # 2.57 X10^3/ul (4.0); Lymphocyte % 40.2 % (19-41); Mean Corp Hgb Conc 32.5 g/dL (32-36); Mean Corpuscular Hgb 28.1 pg (27.0-32.0); Mean Corpuscular Volume 86.5 fL (81-99); Mean Platelet Vol. 11.2 fl (6.2-12.0); Monocyte# 0.67 X10^3/uL; Monocyte% 10.5 % (0-10); NRBC Flagged by Analyzer 0 % (0-5); Neutrophil # 2.73 X10^3/uL (2.7-7.7); Neutrophil % 42.5 % (47-70); Platelet Count 104 K/mm3 (150-450); RBC Distribution Width SD 47.5 fl (35.1-43.9); Red Blood Count 4.23 M/mm3 (4.2-5.4); White Blood Count 6.4 K/mm3 (4.4-11.0)
[2019-12-21 09:02] LABS: ALB/GLOB Ratio 0.6 RATIO (0.9-2.4); AST(SGOT) 38 U/L (15-37); Alanine Aminotransfer ALT/SGPT 38 U/L (13-56); Albumin, Serum 2.9 g/dL (3.2-5.0); Alkaline Phosphatase 145 U/L (45-117); Anion Gap 4 (5-15); BUN 16 mg/dL (7-18); BUN/Creat Ratio 20.4 RATIO (10-20); Calcium,Total 9.3 mg/dL (8.5-10.1); Chloride 109 mmol/L (98-107); Creatinine, Serum 0.78 mg/dL (0.55-1.02); EST Glomerular Filtration Rate 77 mL/min (>60); Est Glom Filt Rate - Afr Amer 93 mL/min (>60); Estimated Creatinine Clearance 42.07 ml/min; Globulin 4.7 g/dL (2.2-4.2); Glucose 92 mg/dL (74-106); Protein, Total 7.6 g/dL (6.4-8.2); Sodium Level 139 mmol/L (136-145)
[2019-12-21] MEDS: tiZANidine HCl 2 MG Tablet 4 MG PO ×2 (09:30→21:41)
[2019-12-21] MEDS: metFORMIN HCl 500 MG Tablet 1000 MG PO (09:31)
[2019-12-21] MEDS: cycloBENZAPRine HCl 10 MG Tablet PO ×2 (09:32→21:41)
[2019-12-21] MEDS: Losartan Potassium 50 MG Tablet PO (09:32)
[2019-12-21] MEDS: Venlafaxine XR 150 MG Capsule 300 MG PO (09:33)
[2019-12-21] MEDS: Oxybutynin 5 MG Tablet PO ×2 (09:33→21:41)
[2019-12-21] MEDS: Empagliflozin 25 MG Tablet PO (09:34)
[2019-12-21] MEDS: Folic Acid 1 MG Tablet PO (09:34)
[2019-12-21] MEDS: hydroCHLOROthiazide 12.5mg 12.5 MG PO (09:34)
[2019-12-21] MEDS: Glucerna Shake 120 ML LIQUID PO (09:37)
[2019-12-21 09:53] VITALS: BP 160/94; PULSE 78; RESP 18; TEMP 36.6; O2SAT 97
--- NOTE | 2019-12-21 10:39 | PN_ITS ---
Patient Problems: Active and Suspected Problems (Last Updated 12/19/19 @ 13:[address] Sean Jimenes, DO) Arrhythmia (Acute) Coronary artery disease (Acute) Memory loss (Acute) Type 2 diabetes mellitus with diabetic polyneuropathy (Acute) Psoriatic arthritis (Acute) Dizziness (Acute) Loss of balance (Acute) Risk for falls (Acute) Reason for Visit: No fever or chills. Vital signs stable. Blood pressure elevated 160/94. HCTZ dose increased. Patient had wound debridement in the morning by auditing specialist. Vitals/I&O's: Vital Signs Temp Pulse Resp BP Pulse Ox 97.9 F 78 18 160/94 H 97 12/21/19 09:53 12/21/19 09:53 12/21/19 09:53 12/21/19 09:53 12/21/19 09:53 Oxygen Delivery Method Room Air Weight: 183 lb 2 oz Body Mass Index (BMI) 32.4 Intake and Output for Last 24 Hours 12/19/19 12/20/19 12/21/19 23:59 23:59 23:59 Intake Total 1045 / 1045 3410 / 3410 610 / 610 Balance 1045 / 1045 3410 / 3410 610 / 610 General: Alert, Oriented x3, Cooperative HEENT: Atraumatic, PERRLA, EOMI, Normocephalic Neck: Supple, No JVD, Negative Carotid Bruits Lungs: Clear to auscultation, No rhonchi, No wheeze, No rales, Diminished Cardiovascular: Regular rate, Regular Rhythm, Normal S1, Normal S2, No murmurs Abdomen: Bowel Sounds Present, Soft, Non Tender, Non-Distended Extremities: No edema, Capillary Refill Less than 3 Seconds Skin: Ulcer/ Wound - Hallux plantar ulcer superficial muscle wasting. Wound debridement Musculoskeletal: No Tenderness to Palpation of Joints or Extremities, Arthritic Changes Neurological: Cranial nerves II-XII grossly intact, Deep Tendon Reflexes 2+/4 and Symmetrical, - - Decreased position sense and sensation to touch below knee level. Psych/Mental Status: Normal Affect, Appropriate Laboratory Results 12/20/19 05:04: WBC 7.1, RBC 4.01 L, Hgb 11.3 L, Hct 34.9 L, MCV 87.0, MCH 28.2, MCHC 32.4, RDW Std Deviation 47.5 H, RDW Coeff of Karen 14.8 H, Plt Count 98 L, MPV 11.1, Immature Gran % (Auto) 0.300, Neut % (Auto) 48.1, Lymph % (Auto) 37.0, Falls % (Auto) 9.7, Eos % (Auto) 4.2, Baso % (Auto) 0.7, Absolute Neuts (auto) 3.4, Absolute Lymphs (auto) 2.63, Nucleated RBC % 0 12/20/19 11:49: POC Glucose 124 H 12/20/19 16:22: POC Glucose 146 H 12/20/19 22:11: POC Glucose 121 H 12/21/19 06:39: POC Glucose 110 12/21/19 08:14: WBC 6.4, RBC 4.23, Hgb 11.9 L, Hct 36.6 L, MCV 86.5, MCH 28.1, MCHC 32.5, RDW Std Deviation 47.5 H, RDW Coeff of Karen 15.0 H, Plt Count 104 L, MPV 11.2, Immature Gran % (Auto) 0.300, Neut % (Auto) 42.5 L, Lymph % (Auto) 40.2, Falls % (Auto) 10.5 H, Eos % (Auto) 5.2 H, Baso % (Auto) 1.3 H, Absolute Neuts (auto) 2.7, Absolute Lymphs (auto) 2.57, Nucleated RBC % 0 12/21/19 08:14: Sodium 139, Potassium 4.0, Chloride 109 H, Carbon Dioxide 26.0, Anion Gap 4 L, BUN 16, Creatinine 0.78, Estim Creat Clear Calc 42.07, Est GFR (MDRD) Af Amer 93, Est GFR (MDRD) Non-Af 77, BUN/Creatinine Ratio 20.4 H, Glucose 92, Calcium 9.3, Total Bilirubin 0.50, AST 38 H, ALT 38, Alkaline Phosphatase 145 H, Total Protein 7.6, Albumin 2.9 L, Globulin 4.7 H, Albumin/Globulin Ratio 0.6 L Current Medications Hydrocodone Bitart/Acetaminophen ([place] 5mg-325mg) 1 tablet PO Q6H PRN PRN PRN Reason: Pain Score 6-10/10 Last Admin: 12/21/19 03:08 Dose: 1 tablet Documented by: Cyclobenzaprine HCl (Flexeril) 10 mg PO BID [facility] Last Admin: 12/21/19 09:32 Dose: 10 mg Documented by: Dextrose (D50w Syringe) 0 gm IV X1 PRN; Protocol PRN Reason: Hypoglycemia Dextrose (D50w Syringe) 0 gm IV X1 PRN; Protocol PRN Reason: Hypoglycemia Docusate Sodium (Colace) 100 mg PO BID PRN PRN PRN Reason: Constipation Empagliflozin (Jardiance) 25 mg PO DAILY [facility] Last Admin: 12/21/19 09:34 Dose: 25 mg Documented by: Enoxaparin Sodium (Lovenox) 40 mg SC DAILY@0600 [facility] Last Admin: 12/21/19 05:48 Dose: 40 mg Documented by: Fluticasone Propionate (Flonase Nasal [place]) 2 spray NASAL DAILY [facility] Last Admin: 12/21/19 09:40 Dose: Not Given Documented by: Folic Acid (Folic Acid) 1 mg PO DAILY [facility] Last Admin: 12/21/19 09:34 Dose: 1 mg Documented by: Gabapentin (Neurontin) 400 mg PO TID [facility] Last Admin: 12/21/19 05:46 Dose: 400 mg Documented by: Glucagon () 1 mg IM .X1 PRN PRN Reason: Hypoglycemia Glucagon () 1 mg IM .X1 PRN PRN Reason: Hypoglycemia Hydrochlorothiazide () 12.5 mg PO DAILY [facility] Last Admin: 12/21/19 09:34 Dose: 12.5 mg Documented by: Cefazolin Sodium 2 gm/ Sodium (Chloride) 110 mls @ 150 mls/hr IV Q8 [facility] Last Infusion: 12/21/19 06:54 Dose: Infused Documented by: Insulin Glargine (Lantus (Bkc)) 42 units SC QHS [facility] Last Admin: 12/20/19 22:12 Dose: 42 u Documented by: Insulin Human Lispro (Humalog Kwikpen (Bkc)) 5 unit SC 0800,1200,1700 [facility] Last Admin: 12/21/19 09:29 Dose: Not Given Documented by: Insulin Human Lispro (Humalog Kwikpen (Bkc)) 0 unit SC TIDAC [facility]; Protocol Last Admin: 12/21/19 06:48 Dose: Not Given Documented by: Losartan Potassium (Cozaar) 50 mg PO DAILY [facility] Last Admin: 12/21/19 09:32 Dose: 50 mg Documented by: Melatonin (Melatonin) 5 mg PO QHS PRN PRN PRN Reason: Sleep Last Admin: 12/19/19 23:42 Dose: 5 mg Documented by: Metformin HCl (Glucophage) 1,000 mg PO BIDCM [facility] Last Admin: 12/21/19 09:31 Dose: 1,000 mg Documented by: Mirtazapine (Remeron) 15 mg PO QHS [facility] Last Admin: 12/20/19 22:12 Dose: 15 mg Documented by: Nutritional Formula (Sancho - [place] Flavor) 1 packet PO BIDCM [facility] Last Admin: 12/21/19 09:31 Dose: 1 packet Documented by: Nutritional Formula (Lactose Free) (Glucerna Shake) 120 ml PO 4X/DAY [facility] Last Admin: 12/21/19 09:37 Dose: 120 ml Documented by: Ondansetron HCl (Zofran) 4 mg IV Q8H PRN PRN PRN Reason: NAUSEA/VOMITING Oxybutynin Chloride (Ditropan) 5 mg PO BID [facility] Last Admin: 12/21/19 09:33 Dose: 5 mg Documented by: Sodium Chloride () 10 - 40 ml IV UD PRN PRN Reason: SALINE FLUSH Last Admin: 12/19/19 23:43 Dose: 10 ml Documented by: Tizanidine HCl (Zanaflex) 4 mg PO BID [facility] Last Admin: 12/21/19 09:30 Dose: 4 mg Documented by: Venlafaxine HCl (Effexor Xr) 300 mg PO DAILY [facility] Last Admin: 12/21/19 09:33 Dose: 300 mg Documented by: STROKE Vital Signs/Narrative: Vital Signs Temp Pulse Resp BP Pulse Ox 12/21/19 09:53 97.9 F 78 18 160/94 H 97 Medical Necessity - Tobacco Use Smoking Status: Never smoker Tobacco Use: Non-smoker Assessment/Plan All Active Problems (Last Updated 12/19/19 @ 13:[address] 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 It got worse on December 15. Patient further admitted for IV antibiotics after failure of outpatient antibiotic. 1. Left foot cellulitis, refractory/failure to outpatient therapy. Patient was admitted on [facility] floor. ESR 40 and CRP 17.7. Started on IV Vanco and Zosyn. Infectious disease on consultation. CT lower extremity reviewed shows no obvious abscess, gas in soft tissue. No visualized bony erosion. Suspicion of possible nondisplaced fracture within proximal phalanx of fifth digit. Clinically, patient has cellulitis around left great toe and distal region of left foot. 12/21/2019: Patient had bedside wound debridement and half cc of purulent material was expressed on the plantar hallux of left foot. Wound abscess culture is sent. Seen by ID and antibiotic narrowed down to IV cefazolin. Vanco and Zosyn discontinued. 2. Diabetes mellitus type 2 complicated with diabetic neuropathy: Patient on numerous medications, including: Metformin, empagliflozin, degludec and prandial insulin. sliding scale insulin added as well as continue with her home medications. Glucose is controlled, between 90 to 150 mg/dL. A1c 8.7. 12/20: Blood sugars are controlled. 3. Hypertension: Blood pressure elevated. HCTZ dose increased to 25 mg daily. 4. Chronic thrombocytopenia, exact etiology unclear possible secondary to drug- related as patient is on methotrexate and Ixekizumab are being held: Patient had platelet count until August 2016 after that platelet count fluctuates and is steadily decreasing to about 100. Lowest decrease was 85 in September 2018. Monitor CBC as patient is on enoxaparin. 5 Psoriatic arthritis: Patient methotrexate as well as ixekizumab being held 6. VTE prophylaxis: SCDs have been ordered by the primary team. On enoxaparin 40 mg daily. 7. Advanced care planning: Patient wishes to be full CODE STATUS at this time. Laboratory Results 12/20/19 05:04: WBC 7.1, RBC 4.01 L, Hgb 11.3 L, Hct 34.9 L, MCV 87.0, MCH 28.2, MCHC 32.4, RDW Std Deviation 47.5 H, RDW Coeff of Karen 14.8 H, Plt Count 98 L, MPV 11.1, Immature Gran % (Auto) 0.300, Neut % (Auto) 48.1, Lymph % (Auto) 37.0, Falls % (Auto) 9.7, Eos % (Auto) 4.2, Baso % (Auto) 0.7, Absolute Neuts (auto) 3.4, Absolute Lymphs (auto) 2.63, Nucleated RBC % 0 12/20/19 11:49: POC Glucose 124 H 12/20/19 16:22: POC Glucose 146 H 12/20/19 22:11: POC Glucose 121 H 12/21/19 06:39: POC Glucose 110 12/21/19 08:14: WBC 6.4, RBC 4.23, Hgb 11.9 L, Hct 36.6 L, MCV 86.5, MCH 28.1, MCHC 32.5, RDW Std Deviation 47.5 H, RDW Coeff of Karen 15.0 H, Plt Count 104 L, MPV 11.2, Immature Gran % (Auto) 0.300, Neut % (Auto) 42.5 L, Lymph % (Auto) 40.2, Falls % (Auto) 10.5 H, Eos % (Auto) 5.2 H, Baso % (Auto) 1.3 H, Absolute Neuts (auto) 2.7, Absolute Lymphs (auto) 2.57, Nucleated RBC % 0 12/21/19 08:14: Sodium 139, Potassium 4.0, Chloride 109 H, Carbon Dioxide 26.0, Anion Gap 4 L, BUN 16, Creatinine 0.78, Estim Creat Clear Calc 42.07, Est GFR (MDRD) Af Amer 93, Est GFR (MDRD) Non-Af 77, BUN/Creatinine Ratio 20.4 H, Glucose 92, Calcium 9.3, Total Bilirubin 0.50, AST 38 H, ALT 38, Alkaline Phosphatase 145 H, Total Protein 7.6, Albumin 2.9 L, Globulin 4.7 H, Albumin/Globulin Ratio 0.6 L 12/19/19 06:10: Hemoglobin A1c 8.7 H 12/19/19 06:10: ESR 40 H 12/19/19 06:10: C-React Prot High Sens 17.70 H Clinical Impression(s) from Imaging Studies Foot X-Ray 12/19/19 12:27 IMPRESSION: Soft tissue edema no visualized fracture. No visualized bony erosion or gas formation. Possible terminating nondisplaced fracture of the fifth proximal phalanx Lower Extremity CT 12/19/19 12:28 IMPRESSION: No visualized abscess. No visualized gas in the soft tissues. No visualized bony erosion. There may be a nondisplaced fracture within the proximal phalanx of the fifth digit image #58 series 3. If There is further concern for osteomyelitis could consider follow-up MRI. Inpatient E&M: 73102 Subs Hosp L2
--- NOTE | 2019-12-21 10:59 | PCM.PN.ID ---
Patient Problems: Active and Suspected Problems (Last Updated 12/19/19 @ 13:[address] 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 No fever, no n/v/d. - Physical Exam Vitals/I&O's: Vital Signs Temp Pulse Resp BP Pulse Ox 97.9 F 78 18 160/94 H 97 12/21/19 09:53 12/21/19 09:53 12/21/19 09:53 12/21/19 09:53 12/21/19 09:53 Oxygen Delivery Method Room Air Weight: 83.064 kg Body Mass Index (BMI) 32.4 Intake and Output for Last 24 Hours 12/19/19 12/20/19 12/21/19 23:59 23:59 23:59 Intake Total 1045 / 1045 3410 / 3410 610 / 610 Balance 1045 / 1045 3410 / 3410 610 / 610 General: Alert, Cooperative, No apparent distress Lungs: Clear to auscultation, Normal air movement Cardiovascular: Regular rate, Regular Rhythm Abdomen: Soft, Non Tender, Non-Distended Skin: Ulcer/ Wound - foot wrapped Laboratory Results 12/20/19 05:04: WBC 7.1, RBC 4.01 L, Hgb 11.3 L, Hct 34.9 L, MCV 87.0, MCH 28.2, MCHC 32.4, RDW Std Deviation 47.5 H, RDW Coeff of Karen 14.8 H, Plt Count 98 L, MPV 11.1, Immature Gran % (Auto) 0.300, Neut % (Auto) 48.1, Lymph % (Auto) 37.0, Alexander % (Auto) 9.7, Eos % (Auto) 4.2, Baso % (Auto) 0.7, Absolute Neuts (auto) 3.4, Absolute Lymphs (auto) 2.63, Nucleated RBC % 0 12/20/19 11:49: POC Glucose 124 H 12/20/19 16:22: POC Glucose 146 H 12/20/19 22:11: POC Glucose 121 H 12/21/19 06:39: POC Glucose 110 12/21/19 08:14: WBC 6.4, RBC 4.23, Hgb 11.9 L, Hct 36.6 L, MCV 86.5, MCH 28.1, MCHC 32.5, RDW Std Deviation 47.5 H, RDW Coeff of Karen 15.0 H, Plt Count 104 L, MPV 11.2, Immature Gran % (Auto) 0.300, Neut % (Auto) 42.5 L, Lymph % (Auto) 40.2, Alexander % (Auto) 10.5 H, Eos % (Auto) 5.2 H, Baso % (Auto) 1.3 H, Absolute Neuts (auto) 2.7, Absolute Lymphs (auto) 2.57, Nucleated RBC % 0 12/21/19 08:14: Sodium 139, Potassium 4.0, Chloride 109 H, Carbon Dioxide 26.0, Anion Gap 4 L, BUN 16, Creatinine 0.78, Estim Creat Clear Calc 42.07, Est GFR (MDRD) Af Amer 93, Est GFR (MDRD) Non-Af 77, BUN/Creatinine Ratio 20.4 H, Glucose 92, Calcium 9.3, Total Bilirubin 0.50, AST 38 H, ALT 38, Alkaline Phosphatase 145 H, Total Protein 7.6, Albumin 2.9 L, Globulin 4.7 H, Albumin/Globulin Ratio 0.6 L Current Medications Hydrocodone Bitart/Acetaminophen ([place] 5mg-325mg) 1 tablet PO Q6H PRN PRN PRN Reason: Pain Score 6-10/10 Last Admin: 12/21/19 03:08 Dose: 1 tablet Documented by: Cyclobenzaprine HCl (Flexeril) 10 mg PO BID [facility] Last Admin: 12/21/19 09:32 Dose: 10 mg Documented by: Dextrose (D50w Syringe) 0 gm IV X1 PRN; Protocol PRN Reason: Hypoglycemia Dextrose (D50w Syringe) 0 gm IV X1 PRN; Protocol PRN Reason: Hypoglycemia Docusate Sodium (Colace) 100 mg PO BID PRN PRN PRN Reason: Constipation Empagliflozin (Jardiance) 25 mg PO DAILY [facility] Last Admin: 12/21/19 09:34 Dose: 25 mg Documented by: Enoxaparin Sodium (Lovenox) 40 mg SC DAILY@0600 [facility] Last Admin: 12/21/19 05:48 Dose: 40 mg Documented by: Fluticasone Propionate (Flonase Nasal [place]) 2 spray NASAL DAILY [facility] Last Admin: 12/21/19 09:40 Dose: Not Given Documented by: Folic Acid (Folic Acid) 1 mg PO DAILY [facility] Last Admin: 12/21/19 09:34 Dose: 1 mg Documented by: Gabapentin (Neurontin) 400 mg PO TID [facility] Last Admin: 12/21/19 05:46 Dose: 400 mg Documented by: Glucagon () 1 mg IM .X1 PRN PRN Reason: Hypoglycemia Glucagon () 1 mg IM .X1 PRN PRN Reason: Hypoglycemia Hydrochlorothiazide (Hctz) 25 mg PO DAILY [facility] Hydrochlorothiazide () 12.5 mg PO X1 ONE Stop: 12/22/19 10:43 Cefazolin Sodium 2 gm/ Sodium (Chloride) 110 mls @ 150 mls/hr IV Q8 [facility] [place] Last Infusion: 12/21/19 06:54 Dose: Infused Documented by: Insulin Glargine (Lantus (Bkc)) 42 units SC QHS [facility] Last Admin: 12/20/19 22:12 Dose: 42 u Documented by: Insulin Human Lispro (Humalog Kwikpen (Bkc)) 5 unit SC 0800,1200,1700 [facility] Last Admin: 12/21/19 09:29 Dose: Not Given Documented by: Insulin Human Lispro (Humalog Kwikpen (Bkc)) 0 unit SC TIDAC [facility]; Protocol Last Admin: 12/21/19 06:48 Dose: Not Given Documented by: Losartan Potassium (Cozaar) 50 mg PO DAILY [facility] Last Admin: 12/21/19 09:32 Dose: 50 mg Documented by: Melatonin (Melatonin) 5 mg PO QHS PRN PRN PRN Reason: Sleep Last Admin: 12/19/19 23:42 Dose: 5 mg Documented by: Metformin HCl (Glucophage) 850 mg PO BIDCM [facility] Mirtazapine (Remeron) 15 mg PO QHS [facility] Last Admin: 12/20/19 22:12 Dose: 15 mg Documented by: Nutritional Formula (Sancho - [place] Flavor) 1 packet PO BIDCM [facility] Last Admin: 12/21/19 09:31 Dose: 1 packet Documented by: Nutritional Formula (Lactose Free) (Glucerna Shake) 120 ml PO 4X/DAY [facility] [place] Last Admin: 12/21/19 09:37 Dose: 120 ml Documented by: Ondansetron HCl (Zofran) 4 mg IV Q8H PRN PRN PRN Reason: NAUSEA/VOMITING Oxybutynin Chloride (Ditropan) 5 mg PO BID [facility] Last Admin: 12/21/19 09:33 Dose: 5 mg Documented by: Sodium Chloride () 10 - 40 ml IV UD PRN PRN Reason: SALINE FLUSH Last Admin: 12/19/19 23:43 Dose: 10 ml Documented by: Tizanidine HCl (Zanaflex) 4 mg PO BID [facility] Last Admin: 12/21/19 09:30 Dose: 4 mg Documented by: Venlafaxine HCl (Effexor Xr) 300 mg PO DAILY [facility] Last Admin: 12/21/19 09:33 Dose: 300 mg Documented by: Medical Necessity - Tobacco Use Smoking Status: Never smoker Tobacco Use: Non-smoker Route of nutrition/ use of supplements: [] Nutritional Intake: [] IV Site: [] Fields Catheter: [] - Assessment/Plan Antibiotics: [] Assessment/Plan: [] Active and Suspected Problems (Last Updated 12/19/19 @ 13:[address] 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 Wound cxs with mssa. Narrowed abx to cefazolin. No abscess or osteo seen on CT. Podiatry following. Bedside I&D done this AM, cxs sent. Will follow, d/w Dr. Keith.
[2019-12-21] MEDS: Insulin Lispro 100 UNIT/ML INSULN.PEN SC ×3 (11:34→16:55)
[2019-12-21 12:01] LABS: Bedside Glucose 174 mg/dL (70-110)
[2019-12-21] MEDS: 0.9% Saline Lock 10 ML Syringe IV (14:47)
[2019-12-21 15:10] VITALS: BP 127/63; PULSE 78; RESP 16; TEMP 36.5; O2SAT 95
[2019-12-21] MEDS: metFORMIN HCl 850 MG Tablet PO (17:00)
[2019-12-21 17:10] LABS: Bedside Glucose 146 mg/dL (70-110)
[2019-12-21 21:10] VITALS: BP 113/64; PULSE 84; RESP 18; TEMP 36.8; O2SAT 96
[2019-12-21] MEDS: Mirtazapine 15 MG Tablet PO (21:41)
[2019-12-21] MEDS: MELATONIN 10 MG TABLET 5 MG PO (21:43)
[2019-12-21 22:06] LABS: Bedside Glucose 99 mg/dL (70-110)
[2019-12-22 03:06] VITALS: BP 148/72; PULSE 64; RESP 16; TEMP 36.6; O2SAT 96
[2019-12-22] MEDS: HYDROcodone Bitartrate/Apap 5/325 Tablet PO ×2 (03:56→10:44)
[2019-12-22] MEDS: Cefazolin 2 GM in 0.9% Normal Saline 100 ML IV (05:52)
[2019-12-22] MEDS: Enoxaparin 40 MG/0.4 ML Syringe SC (05:53)
[2019-12-22] MEDS: Gabapentin 400 MG Capsule PO (05:53)
[2019-12-22 06:12] LABS: Absolute Neutrophil Count 2.6 X10^3/uL (2.0-7.7); Basophil# 0.05 X10^3/uL; Basophil% 0.8 % (0-1); Hematocrit 38.5 % (37-47); Hemoglobin 12.2 g/dL (12.0-15.0); Lymphocyte % 41.5 % (19-41); Mean Corp Hgb Conc 31.7 g/dL (32-36); Mean Corpuscular Hgb 27.7 pg (27.0-32.0); Mean Corpuscular Volume 87.5 fL (81-99); Mean Platelet Vol. 10.5 fl (6.2-12.0); Monocyte# 0.56 X10^3/uL; Monocyte% 9.3 % (0-10); NRBC Flagged by Analyzer 0 % (0-5); Neutrophil % 43.1 % (47-70); Platelet Count 104 K/mm3 (150-450); RBC Distribution Width CV 14.8 % (11.6-14.6)
[2019-12-22 06:13] LABS: Anion Gap 5 (5-15); BUN 16 mg/dL (7-18); BUN/Creat Ratio 21.8 RATIO (10-20); Calcium,Total 9.7 mg/dL (8.5-10.1); Chloride 107 mmol/L (98-107); Creatinine, Serum 0.73 mg/dL (0.55-1.02); EST Glomerular Filtration Rate 83 mL/min (>60); Est Glom Filt Rate - Afr Amer 100 mL/min (>60); Estimated Creatinine Clearance 42.07 ml/min; Glucose 85 mg/dL (74-106); Sodium Level 136 mmol/L (136-145)
[2019-12-22 07:00] LABS: Bedside Glucose 88 mg/dL (70-110)
--- NOTE | 2019-12-22 08:12 | PN_ITS ---
Patient Problems: Active and Suspected Problems (Last Updated 12/19/19 @ 13:[address] Sean Jimenes, DO) Arrhythmia (Acute) Coronary artery disease (Acute) Memory loss (Acute) Type 2 diabetes mellitus with diabetic polyneuropathy (Acute) Psoriatic arthritis (Acute) Dizziness (Acute) Loss of balance (Acute) Risk for falls (Acute) Subjective: This 74-year-old female with significant past medical history of diabetes was seen bedside status post bedside incision and drainage. Her pain is rated as a 3 out of 10 this morning. She denies fever, chill, nausea, vomiting. - Physical Exam Vitals/I&O's: Vital Signs Temp Pulse Resp BP Pulse Ox 97.9 F 64 16 148/72 H 96 12/22/19 03:06 12/22/19 03:06 12/22/19 03:06 12/22/19 03:06 12/22/19 03:06 Oxygen Delivery Method Room Air Weight: 83.064 kg Body Mass Index (BMI) 32.4 Intake and Output for Last 24 Hours 12/20/19 12/21/19 12/22/19 23:59 23:59 23:59 Intake Total 3410 / 3410 720 / 1420 1010 / 1010 Balance 3410 / 3410 720 / 1420 1010 / 1010 General: Alert, Oriented x3, Cooperative HEENT: Atraumatic Extremities: No cyanosis, Capillary Refill Less than 3 Seconds, No Calf Tenderness, Diminished Peripheral Pulses, Edema Skin: Ulcer/ Wound - Plantar hallux incision and drainage site has a mixed base of granulation tissue and devitalized tissue. There is resolution of purulence and the erythema has decreased in intensity and is no longer on the leg or the dorsal aspect of the foot. There is no odor. There is no ash necrosis or probe to bone. The adjacent skin is hairless and atrophic Musculoskeletal: No Tenderness to Palpation of Joints or Extremities, Muscle Wasting, - - No bogginess or fluctuance on palpation Neurological: - - Lack of normal epicritic sensation light touch is consistent with neuropathy status Psych/Mental Status: Normal Affect, Appropriate Microbiology Past 72 Hours 12/21/19 07:30 Wound Abcess - Aerobic & Anaerobic Swabs Gram Stain - Final Laboratory Results 12/21/19 08:14: WBC 6.4, RBC 4.23, Hgb 11.9 L, Hct 36.6 L, MCV 86.5, MCH 28.1, MCHC 32.5, RDW Std Deviation 47.5 H, RDW Coeff of Karen 15.0 H, Plt Count 104 L, MPV 11.2, Immature Gran % (Auto) 0.300, Neut % (Auto) 42.5 L, Lymph % (Auto) 40.2, [place] % (Auto) 10.5 H, Eos % (Auto) 5.2 H, Baso % (Auto) 1.3 H, Absolute Neuts (auto) 2.7, Absolute Lymphs (auto) 2.57, Nucleated RBC % 0 12/21/19 08:14: Sodium 139, Potassium 4.0, Chloride 109 H, Carbon Dioxide 26.0, Anion Gap 4 L, BUN 16, Creatinine 0.78, Estim Creat Clear Calc 42.07, Est GFR (MDRD) Af Amer 93, Est GFR (MDRD) Non-Af 77, BUN/Creatinine Ratio 20.4 H, Glucose 92, Calcium 9.3, Total Bilirubin 0.50, AST 38 H, ALT 38, Alkaline Phosphatase 145 H, Total Protein 7.6, Albumin 2.9 L, Globulin 4.7 H, Albumin/Globulin Ratio 0.6 L 12/21/19 11:31: POC Glucose 174 H 12/21/19 16:53: POC Glucose 146 H 12/21/19 21:44: POC Glucose 99 12/22/19 05:20: Sodium 136, Potassium 4.0, Chloride 107, Carbon Dioxide 24.0, Anion Gap 5, BUN 16, Creatinine 0.73, Estim Creat Clear Calc 42.07, Est GFR (MDRD) Af Amer 100, Est GFR (MDRD) Non-Af 83, BUN/Creatinine Ratio 21.8 H, Glucose 85, Calcium 9.7 12/22/19 05:20: WBC 6.0, RBC 4.40, Hgb 12.2, Hct 38.5, MCV 87.5, MCH 27.7, MCHC 31.7 L, RDW Std Deviation 48.0 H, RDW Coeff of Karen 14.8 H, Plt Count 104 L, MPV 10.5, Immature Gran % (Auto) 0.300, Neut % (Auto) 43.1 L, Lymph % (Auto) 41.5 H, [place] % (Auto) 9.3, Eos % (Auto) 5.0, Baso % (Auto) 0.8, Absolute Neuts (auto) 2.6, Absolute Lymphs (auto) 2.50, Nucleated RBC % 0 12/22/19 06:43: POC Glucose 88 Current Medications Hydrocodone Bitart/Acetaminophen ([place] 5mg-325mg) 1 tablet PO Q6H PRN PRN PRN Reason: Pain Score 6-10/10 Last Admin: 12/22/19 03:56 Dose: 1 tablet Documented by: Cyclobenzaprine HCl (Flexeril) 10 mg PO BID [facility] Last Admin: 12/21/19 21:41 Dose: 10 mg Documented by: Dextrose (D50w Syringe) 0 gm IV X1 PRN; Protocol PRN Reason: Hypoglycemia Dextrose (D50w Syringe) 0 gm IV X1 PRN; Protocol PRN Reason: Hypoglycemia Docusate Sodium (Colace) 100 mg PO BID PRN PRN PRN Reason: Constipation Empagliflozin (Jardiance) 25 mg PO DAILY [facility] Last Admin: 12/21/19 09:34 Dose: 25 mg Documented by: Enoxaparin Sodium (Lovenox) 40 mg SC DAILY@0600 [facility] Last Admin: 12/22/19 05:53 Dose: 40 mg Documented by: Fluticasone Propionate (Flonase Nasal [place]) 2 spray NASAL DAILY [facility] Last Admin: 12/21/19 09:40 Dose: Not Given Documented by: Folic Acid (Folic Acid) 1 mg PO DAILY [facility] Last Admin: 12/21/19 09:34 Dose: 1 mg Documented by: Gabapentin (Neurontin) 400 mg PO TID [facility] Last Admin: 12/22/19 05:53 Dose: 400 mg Documented by: Glucagon () 1 mg IM .X1 PRN PRN Reason: Hypoglycemia Glucagon () 1 mg IM .X1 PRN PRN Reason: Hypoglycemia Hydrochlorothiazide (Hctz) 25 mg PO DAILY [facility] Hydrochlorothiazide () 12.5 mg PO X1 ONE Stop: 12/22/19 10:43 Cefazolin Sodium 2 gm/ Sodium (Chloride) 110 mls @ 150 mls/hr IV Q8 [facility] Last Admin: 12/22/19 05:52 Dose: 150 mls/hr Documented by: Insulin Glargine (Lantus (Bkc)) 42 units SC QHS [facility] Last Admin: 12/22/19 01:48 Dose: Not Given Documented by: Insulin Human Lispro (Humalog Kwikpen ([facility])) 5 unit SC 0800,1200,1700 [facility] Last Admin: 12/22/19 08:00 Dose: Not Given Documented by: Insulin Human Lispro (Humalog Kwikpen (Bkc)) 0 unit SC TIDAC [facility]; Protocol Last Admin: 12/22/19 06:55 Dose: Not Given Documented by: Losartan Potassium (Cozaar) 50 mg PO DAILY [facility] Last Admin: 12/21/19 09:32 Dose: 50 mg Documented by: Melatonin (Melatonin) 5 mg PO QHS PRN PRN PRN Reason: Sleep Last Admin: 12/21/19 21:43 Dose: 5 mg Documented by: Metformin HCl (Glucophage) 850 mg PO BIDCM [facility] Last Admin: 12/21/19 17:00 Dose: 850 mg Documented by: Mirtazapine (Remeron) 15 mg PO QHS [facility] Last Admin: 12/21/19 21:41 Dose: 15 mg Documented by: Nutritional Formula ([place] Flavor) 1 packet PO BIDCM [facility] Last Admin: 12/21/19 17:01 Dose: Not Given Documented by: Nutritional Formula (Lactose Free) (Glucerna Shake) 120 ml PO 4X/DAY [facility] Last Admin: 12/21/19 21:45 Dose: Not Given Documented by: Ondansetron HCl (Zofran) 4 mg IV Q8H PRN PRN PRN Reason: NAUSEA/VOMITING Oxybutynin Chloride (Ditropan) 5 mg PO BID [facility] Last Admin: 12/21/19 21:41 Dose: 5 mg Documented by: Sodium Chloride () 10 - 40 ml IV UD PRN PRN Reason: SALINE FLUSH Last Admin: 12/21/19 14:47 Dose: 10 ml Documented by: Tizanidine HCl (Zanaflex) 4 mg PO BID [facility] Last Admin: 12/21/19 21:41 Dose: 4 mg Documented by: Venlafaxine HCl (Effexor Xr) 300 mg PO DAILY [facility] Last Admin: 12/21/19 09:33 Dose: 300 mg Documented by: Medical Necessity - Tobacco Use Smoking Status: Never smoker Tobacco Use: Non-smoker Assessment/Plan All Active Problems (Last Updated 12/19/19 @ 13:[address] Sean Jimenes, DO) Breast mass, right (Acute) Ulcer of left foot due to type 2 diabetes mellitus (Acute) Uncontrolled type 2 diabetes mellitus (Acute) Obesity (Acute) Depression (Acute) Anxiety (Acute) GERD (gastroesophageal reflux disease) (Acute) PVD (peripheral vascular disease) (Acute) Pain in left foot (Acute) Type 2 diabetes mellitus with diabetic polyneuropathy (Acute) Cellulitis of left foot (Acute) Peripheral vascular disease (Ruled-out) Arrhythmia (Acute) Coronary artery disease (Acute) Memory loss (Acute) Type 2 diabetes mellitus with diabetic polyneuropathy (Acute) Psoriatic arthritis (Acute) Dizziness (Acute) Loss of balance (Acute) Risk for falls (Acute) Left foot cellulitis, failed outpatient oral antibiotics, improving since admission Plantar left hallux abscess development; Now status post day 1 bedside incision and drainage Diabetes with neuropathy Left foot pain Other comorbidities: Diabetes with neuropathy, psoriatic arthritis, cardiac arrhythmia, obesity, depression I reviewed and discussed her case. She is afebrile at this time and her vitals are stable. She had bedside incision and drainage performed yesterday. This site was irrigated again today and there is no purulence on expression. Betadine with gauze dressing was applied. Her culture result so far from the drainage procedure is gram-positive cocci. Prior wound cultures in the clinical setting demonstrated MSSA. To maintain a nonweightbearing status to the left forefoot with use of surgical shoe. Her tentative oral antibiotic plan for home is 10 days of Duricef. Infectious disease on consultation is greatly appreciated. Her medical comorbidities are noted and medicine team is on consultation as well. Discharge medication plan was communicated with Dr. Keith. Discharge this afternoon is possible. Please do not hesitate to call if you have any questions. She will follow-up at the wound healing center or the foot [facility] ankle center within 1 week of discharge. She would like a new prescription sent to [facility] in [place]. I reviewed the case with her daughter, Katey, who is a available to help with dressing care on a daily basis rather than having home health arranged. Aminata Yates DPM, [facility] [phone]
[2019-12-22] MEDS: 0.9% Saline Lock 10 ML Syringe IV (08:18)
[2019-12-22] MEDS: Venlafaxine XR 150 MG Capsule 300 MG PO (08:19)
[2019-12-22] MEDS: Oxybutynin 5 MG Tablet PO (08:19)
[2019-12-22] MEDS: metFORMIN HCl 850 MG Tablet PO (08:19)
[2019-12-22] MEDS: hydroCHLOROthiazide 12.5mg 12.5 MG PO (08:19)
[2019-12-22] MEDS: tiZANidine HCl 2 MG Tablet 4 MG PO (08:20)
[2019-12-22] MEDS: cycloBENZAPRine HCl 10 MG Tablet PO (08:20)
[2019-12-22] MEDS: Folic Acid 1 MG Tablet PO (08:20)
[2019-12-22] MEDS: hydroCHLOROthiazide 25 MG Tablet PO (08:21)
[2019-12-22] MEDS: Empagliflozin 25 MG Tablet PO (08:21)
[2019-12-22] MEDS: Losartan Potassium 50 MG Tablet PO (08:21)
[2019-12-22 08:25] VITALS: BP 163/74; PULSE 75; RESP 16; TEMP 36.3; O2SAT 96
--- NOTE | 2019-12-22 10:05 | PN_ITS ---
Reason for Visit: Follow-up for left hallux deep tissue infection. Objective: No fever or chills. Blood pressure slightly elevated. HCTZ increased to 25 mg daily. Vitals/I&O's: Vital Signs Temp Pulse Resp BP Pulse Ox 97.3 F L 75 16 163/74 H 96 12/22/19 08:25 12/22/19 08:25 12/22/19 08:25 12/22/19 08:25 12/22/19 08:25 Oxygen Delivery Method Room Air Weight: 183 lb 2 oz Body Mass Index (BMI) 32.4 Intake and Output for Last 24 Hours 12/20/19 12/21/19 12/22/19 23:59 23:59 23:59 Intake Total 3410 / 3410 720 / 1420 1120 / 1120 Balance 3410 / 3410 720 / 1420 1120 / 1120 General: Alert, Oriented x3, Cooperative HEENT: Atraumatic, PERRLA, EOMI, Normocephalic Neck: Supple, No JVD, Negative Carotid Bruits Lungs: Clear to auscultation, No rhonchi, No wheeze, No rales, Diminished Cardiovascular: Regular rate, Regular Rhythm, Normal S1, Normal S2, No murmurs Abdomen: Bowel Sounds Present, Soft, Non Tender, Non-Distended Extremities: No edema, Capillary Refill Less than 3 Seconds Skin: Ulcer/ Wound - Left hallux ulcer. Status post debridement Musculoskeletal: No Tenderness to Palpation of Joints or Extremities, Arthritic Changes Neurological: Cranial nerves II-XII grossly intact, Neuro grossly intact, - - Peripheral neuropathy below both knees. Decreased position sense of great toe both feet Psych/Mental Status: Normal Affect, Appropriate Microbiology Past 72 Hours 12/21/19 07:30 Wound Abcess - Aerobic & Anaerobic Swabs Gram Stain - Final Laboratory Results 12/21/19 11:31: POC Glucose 174 H 12/21/19 16:53: POC Glucose 146 H 12/21/19 21:44: POC Glucose 99 12/22/19 05:20: Sodium 136, Potassium 4.0, Chloride 107, Carbon Dioxide 24.0, Anion Gap 5, BUN 16, Creatinine 0.73, Estim Creat Clear Calc 42.07, Est GFR (MDRD) Af Amer 100, Est GFR (MDRD) Non-Af 83, BUN/Creatinine Ratio 21.8 H, Glucose 85, Calcium 9.7 12/22/19 05:20: WBC 6.0, RBC 4.40, Hgb 12.2, Hct 38.5, MCV 87.5, MCH 27.7, MCHC 31.7 L, RDW Std Deviation 48.0 H, RDW Coeff of Karen 14.8 H, Plt Count 104 L, MPV 10.5, Immature Gran % (Auto) 0.300, Neut % (Auto) 43.1 L, Lymph % (Auto) 41.5 H, [place] % (Auto) 9.3, Eos % (Auto) 5.0, Baso % (Auto) 0.8, Absolute Neuts (auto) 2.6, Absolute Lymphs (auto) 2.50, Nucleated RBC % 0 12/22/19 06:43: POC Glucose 88 Current Medications Hydrocodone Bitart/Acetaminophen ([place] 5mg-325mg) 1 tablet PO Q6H PRN PRN PRN Reason: Pain Score 6-10/10 Last Admin: 12/22/19 03:56 Dose: 1 tablet Documented by: Cyclobenzaprine HCl (Flexeril) 10 mg PO BID [facility] Last Admin: 12/22/19 08:20 Dose: 10 mg Documented by: Dextrose (D50w Syringe) 0 gm IV X1 PRN; Protocol PRN Reason: Hypoglycemia Dextrose (D50w Syringe) 0 gm IV X1 PRN; Protocol PRN Reason: Hypoglycemia Docusate Sodium (Colace) 100 mg PO BID PRN PRN PRN Reason: Constipation Empagliflozin (Jardiance) 25 mg PO DAILY [facility] Last Admin: 12/22/19 08:21 Dose: 25 mg Documented by: Enoxaparin Sodium (Lovenox) 40 mg SC DAILY@0600 [facility] Last Admin: 12/22/19 05:53 Dose: 40 mg Documented by: Fluticasone Propionate (Flonase Nasal [place]) 2 spray NASAL DAILY [facility] Last Admin: 12/22/19 08:21 Dose: Not Given Documented by: Folic Acid (Folic Acid) 1 mg PO DAILY [facility] Last Admin: 12/22/19 08:20 Dose: 1 mg Documented by: Gabapentin (Neurontin) 400 mg PO TID [facility] Last Admin: 12/22/19 05:53 Dose: 400 mg Documented by: Glucagon () 1 mg IM .X1 PRN PRN Reason: Hypoglycemia Glucagon () 1 mg IM .X1 PRN PRN Reason: Hypoglycemia Hydrochlorothiazide (Hctz) 25 mg PO DAILY [facility] Last Admin: 12/22/19 08:21 Dose: 25 mg Documented by: Hydrochlorothiazide () 12.5 mg PO X1 ONE Stop: 12/22/19 10:43 Last Admin: 12/22/19 08:19 Dose: 12.5 mg Documented by: Cefazolin Sodium 2 gm/ Sodium (Chloride) 110 mls @ 150 mls/hr IV Q8 [facility] Last Infusion: 12/22/19 07:15 Dose: Infused Documented by: Insulin Glargine (Lantus ([facility])) 42 units SC QHS [facility] Last Admin: 12/22/19 01:48 Dose: Not Given Documented by: Insulin Human Lispro (Humalog Kwikpen ([facility])) 5 unit SC 0800,1200,1700 [facility] Last Admin: 12/22/19 08:00 Dose: Not Given Documented by: Insulin Human Lispro (Humalog Kwikpen ([facility])) 0 unit SC TIDAC [facility]; Protocol Last Admin: 12/22/19 06:55 Dose: Not Given Documented by: Losartan Potassium (Cozaar) 50 mg PO DAILY [facility] Last Admin: 12/22/19 08:21 Dose: 50 mg Documented by: Melatonin (Melatonin) 5 mg PO QHS PRN PRN PRN Reason: Sleep Last Admin: 12/21/19 21:43 Dose: 5 mg Documented by: Metformin HCl (Glucophage) 850 mg PO BIDCM [facility] Last Admin: 12/22/19 08:19 Dose: 850 mg Documented by: Mirtazapine (Remeron) 15 mg PO QHS [facility] Last Admin: 12/21/19 21:41 Dose: 15 mg Documented by: Nutritional Formula (Sanch[place] Flavor) 1 packet PO BIDCM [facility] Last Admin: 12/22/19 08:22 Dose: Not Given Documented by: Nutritional Formula (Lactose Free) (Glucerna Shake) 120 ml PO 4X/DAY [facility] Last Admin: 12/22/19 08:22 Dose: Not Given Documented by: Ondansetron HCl (Zofran) 4 mg IV Q8H PRN PRN PRN Reason: NAUSEA/VOMITING Oxybutynin Chloride (Ditropan) 5 mg PO BID [facility] Last Admin: 12/22/19 08:19 Dose: 5 mg Documented by: Sodium Chloride () 10 - 40 ml IV UD PRN PRN Reason: SALINE FLUSH Last Admin: 12/22/19 08:18 Dose: 10 ml Documented by: Tizanidine HCl (Zanaflex) 4 mg PO BID [facility] Last Admin: 12/22/19 08:20 Dose: 4 mg Documented by: Venlafaxine HCl (Effexor Xr) 300 mg PO DAILY [facility] Last Admin: 12/22/19 08:19 Dose: 300 mg Documented by: STROKE Vital Signs/Narrative: Vital Signs Temp Pulse Resp BP Pulse Ox 12/22/19 08:25 97.3 F L 75 16 163/74 H 96 Medical Necessity - Tobacco Use Smoking Status: Never smoker Tobacco Use: Non-smoker Assessment/Plan All Active Problems (Last Updated 12/19/19 @ 13:[address] 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 It got worse on December 15. Patient further admitted for IV antibiotics after failure of outpatient antibiotic. 1. Left foot cellulitis, refractory/failure to outpatient therapy. Patient was admitted on [facility] floor. ESR 40 and CRP 17.7. Started on IV Vanco and Zosyn. Infectious disease on consultation. CT lower extremity reviewed shows no obvious abscess, gas in soft tissue. No visualized bony erosion. Suspicion of possible nondisplaced fracture within proximal phalanx of fifth digit. Clinically, patient has cellulitis around left great toe and distal region of left foot. 12/21/2019: Patient had bedside wound debridement and half cc of purulent material was expressed on the plantar hallux of left foot. Wound abscess culture is sent. Seen by ID and antibiotic narrowed down to IV cefazolin. Vanco and Zosyn disco ntinued. 12/22/2019: Patient is discharged on cefadroxil 1 g twice daily, to complete a total antibiotic duration of 10 days. Seen by ID. Follow-up with highway painter. 2. Diabetes mellitus type 2 complicated with diabetic neuropathy: Patient on numerous medications, including: Metformin, empagliflozin, degludec and prandial insulin. sliding scale insulin added as well as continue with her home m edications. Glucose is controlled, between 90 to 150 mg/dL. A1c 8.7. 12/20: Blood sugars are controlled. 12/21: Follow-up with PCP for optimal control of glucose and diabetes mellitus type 2 3. Hypertension: Blood pressure elevated. HCTZ dose increased to 25 mg daily. His prescription sent to pharmacy for HCTZ 25 mg daily. Patient also on losartan 50 mg daily. Follow with PCP to further uptitrate the dose of losartan for optimal control of blood pressure. 4. Chronic thrombocytopenia, exact etiology unclear possible secondary to drug- related as patient is on methotrexate and Ixekizumab are being held: Patient had platelet count until August 2016 after that platelet count fluctuates and is steadily decreasing to about 100. Lowest decrease was 85 in September 2018. 5 Psoriatic arthritis: Patient methotrexate as well as ixekizumab being held 6. VTE prophylaxis: SCDs have been ordered by the primary team. On enoxaparin 40 mg daily. 7. Advanced care planning: Patient wishes to be full CODE STATUS at this time. Patient is hemodynamically stable to be discharged to home. Follow with PCP in 2 weeks. Discussed with admitting physician highway painter. Microbiology Past 72 Hours 12/21/19 07:30 Wound Abcess - Aerobic & Anaerobic Swabs Gram Stain - Final 12/21/19 07:30 Wound Abcess - Aerobic & Anaerobic Swabs Wound Culture - Preliminary Gram Positive Cocci Laboratory Results 12/21/19 16:53: POC Glucose 146 H 12/21/19 21:44: POC Glucose 99 12/22/19 05:20: Sodium 136, Potassium 4.0, Chloride 107, Carbon Dioxide 24.0, Anion Gap 5, BUN 16, Creatinine 0.73, Estim Creat Clear Calc 42.07, Est GFR (MDRD) Af Amer 100, Est GFR (MDRD) Non-Af 83, BUN/Creatinine Ratio 21.8 H, Glucose 85, Calcium 9.7 12/22/19 05:20: WBC 6.0, RBC 4.40, Hgb 12.2, Hct 38.5, MCV 87.5, MCH 27.7, MCHC 31.7 L, RDW Std Deviation 48.0 H, RDW Coeff of Karen 14.8 H, Plt Count 104 L, MPV 10.5, Immature Gran % (Auto) 0.300, Neut % (Auto) 43.1 L, Lymph % (Auto) 41.5 H, [place] % (Auto) 9.3, Eos % (Auto) 5.0, Baso % (Auto) 0.8, Absolute Neuts (auto) 2.6, Absolute Lymphs (auto) 2.50, Nucleated RBC % 0 12/22/19 06:43: POC Glucose 88 12/22/19 11:51: POC Glucose 220 H 12/19/19 06:10: Hemoglobin A1c 8.7 H 12/19/19 06:10: ESR 40 H 12/19/19 06:10: C-React Prot High Sens 17.70 H Clinical Impression(s) from Imaging Studies Foot X-Ray 12/19/19 12:27 IMPRESSION: Soft tissue edema no visualized fracture. No visualized bony erosion or gas formation. Possible terminating nondisplaced fracture of the fifth proximal phalanx Lower Extremity CT 12/19/19 12:28 IMPRESSION: No visualized abscess. No visualized gas in the soft tissues. No visualized bony erosion. There may be a nondisplaced fracture within the proximal phalanx of the fifth digit image #58 series 3. If There is further concern for osteomyelitis could consider follow-up MRI. Inpatient E&M: 69973 Subs Hosp L2
--- NOTE | 2019-12-22 10:06 | PCM.DC.POD ---
Discharge Diet: Carb Control Diet Discharge Activity: - - heel weightbear left foot with surgical shoe. use assistive device if needed. Weight Bearing Status: Partial weight bearing Keep extremity elevated above heart level: Left Leg Call your doctor if your incision/area has: Continuous Slow Oozing, Sudden Increased Bleeding, Increased Pain/ Swelling, Increased Redness, Foul Smelling Discharge, Swelling at the incision site Call your doctor if you observe: Fever of 101 or Higher, Numbness or Tingling, Swelling in the ankles, Calf discomfort, Uncontrolled pain Cleanse incision/area with: Soap & Water Additional Dressing/Incision Instructions:: To change dressing daily with betadine wicked gauze, cover with dry gauze, and cover with gauze roll. Katey daughter is able to help. Allergies/Adverse Reactions: Allergies buprenorphine [From [place]] Allergy (Verified 11/18/19 15:30) Hives Medications to take at Discharge Gabapentin [Neurontin] 400 mg PO TID 03/31/14 Tizanidine HCl 4 mg PO BID 03/31/14 Biotin 1,000 mcg PO DAILY 11/18/19 Hydrocortisone 2.5% Crm [Hytone] 1 applic TOPICAL BID PRN PRN 11/18/19 Insulin Aspart [Novolog Flexpen] 5 units SUBCUT TIDCM 11/18/19 Insulin Degludec/Liraglutide [Xultophy 100 Unit-3.6MG/ml Pen] 42 units SQ QHS 11/18/19 Melatonin 5 mg PO QHS PRN 11/18/19 Mirtazapine [Remeron] 15 mg PO QHS 11/18/19 Oxybutynin [Ditropan] 5 mg PO BID 11/18/19 Triamcinolone 0.1% Cream [Kenalog] 1 applic TOPICAL BID 11/18/19 Cyclobenzaprine HCl 10 mg PO BID 12/19/19 Empagliflozin [Jardiance] 25 mg PO DAILY 12/19/19 Fluticasone 0.05% [Flonase Nasal [place]] 2 spray NASAL DAILY 12/19/19 Folic Acid 1 mg PO DAILY 12/19/19 Hydrocodone/Acetaminophen [[facility] 5-325 Tablet] 1 tab PO BID PRN 12/19/19 Losartan Potassium [Cozaar] 50 mg PO DAILY 12/19/19 Methotrexate Sodium [Methotrexate] 2.5 mg PO QWEEK 12/19/19 traMADol [Ultram] 50 mg PO TID 12/19/19 Cefadroxil 1 gm PO BID #12 tab 12/22/19 Hydrochlorothiazide [Hctz] 25 mg PO DAILY #30 tab 12/22/19 metFORMIN HCl [Glucophage] 850 mg PO BIDCM #60 tab 12/22/19 The following prescriptions were given: Cefadroxil 1 gm PO BID #12 tab Transmission Status: Received by [facility] metFORMIN HCl [Glucophage] 850 mg PO BIDCM #60 tab Transmission Status: Received by [facility] Hydrochlorothiazide [Hctz] 25 mg PO DAILY #30 tab Transmission Status: Received by [facility] Primary Care Physician: Chang Bralow DO [Primary Care Provider] - Please follow up with your Primary Care Physician in: 1 week Test Results: Test results from this visit will be discussed in further detail at your follow-up appointment, if applicable. Please Follow Up With: Aminata Yates DPM When: next Friday at [facility]; [phone] Proposed Discharge Date: 12/22/19
--- NOTE | 2019-12-22 10:15 | PCM.DC.SUM ---
Discharge Date and Diagnosis Date of Admission: 12/19/19 Date of Discharge: 12/22/19 - Primary Discharge Diagnosis Active and Suspected Problems (Last Updated 12/19/19 @ 13:[address] Sean Jimenes DO) Arrhythmia (Acute) Coronary artery disease (Acute) Memory loss (Acute) Type 2 diabetes mellitus with diabetic polyneuropathy (Acute) Psoriatic arthritis (Acute) Dizziness (Acute) Loss of balance (Acute) Risk for falls (Acute) - Secondary Discharge Diagnosis Chronic Problems (Last Updated 12/19/19 @ 13:[address] Sean Jimenes DO) Chronic pain (Chronic) Chronic ulcer of left foot with fat layer exposed (Chronic) Chronic pain (Chronic) Psoriatic arthritis, peripheral vascular disease, recurrent foot infections, diabetes with neuropathy, arrhythmia, depression Hospital Course and Treatment Imaging Results: 12-19-2019: 3 left foot x-rays reviewed without acute fracture or dislocation, foreign body, soft tissue emphysema, osseous destruction, or designated abscess formation (AP, lateral, oblique) 12-19-2019: Left foot CT scan performed without osseous destruction, soft tissue emphysema or distinct abscess formation Operations: None, - Procedures: - - Left hallux bedside debridement and incision and drainage Summary of Care Provided: The patient is a 74 year old F was admitted due to outpatient failure of left foot infection chronic recurrent ulceration of the plantar left hallux. She was transitioned to IV antibiotics and the ulcer has been recultured. Imaging studies were negative for abscess or osseous destruction. During hospital admission time., Loculation of the abscess was further define and a bedside incision drainage was performed. Cellulitis improved. Her final cultures are still pending. Her antibiotics were narrowed to oral Duricef. Infectious disease was on consultation throughout the admission. Hospitalist service was also on consultation for medical management. DVT prophylaxis was performed with Lovenox. She continue to keep weight off of the site by heel weightbearing as well. She was discharged with dressing care plan of Betadine with gauze. Her daughter, Kia, will help changes daily. She will [facility]-up with [facility] next Friday. - Physical Exam Vitals/I&O's: Vital Signs Temp Pulse Resp BP Pulse Ox 97.3 F L 75 16 163/74 H 96 12/22/19 08:25 12/22/19 08:25 12/22/19 08:25 12/22/19 08:25 12/22/19 08:25 Oxygen Delivery Method Room Air Weight: 83.064 kg Body Mass Index (BMI) 32.4 Intake and Output for Last 24 Hours 12/20/19 12/21/19 12/22/19 23:59 23:59 23:59 Intake Total 3410 / 3410 720 / 1420 1120 / 1120 Balance 3410 / 3410 720 / 1420 1120 / 1120 General: Alert, Oriented x3, Cooperative HEENT: Atraumatic Oral: Moist Mucosa Lungs: Clear to auscultation Cardiovascular: Regular rate, Regular Rhythm Abdomen: Non Tender Extremities: No cyanosis, Capillary Refill Less than 3 Seconds, No Calf Tenderness, Edema - Reduced left foot and hallux throughout course of hospital admission, Peripheral Pulses Normal - Palpable DP PT pulse left Skin: Ulcer/ Wound - Plantar left hallux incision and drainage with serosanguineous drainage. No devitalized deep tissue or probe to bone. No additional purulence on expression today after the drainage procedure was performed. Erythema that extends to the dorsal foot and medial lower leg have resolved to the course of her hospitalization Musculoskeletal: No Tenderness to Palpation of Joints or Extremities, Muscle Wasting, Tenderness - Tenderness with left hallux ulcer manipulation has decreased with ongoing treatment Neurological: - - Lack of epicritic sensation to light touch is consistent with her neuropathy status Psych/Mental Status: Normal Affect, Appropriate Microbiology Past 72 Hours 12/21/19 07:30 Wound Abcess - Aerobic & Anaerobic Swabs Gram Stain - Final Laboratory Results 12/21/19 11:31: POC Glucose 174 H 12/21/19 16:53: POC Glucose 146 H 12/21/19 21:44: POC Glucose 99 12/22/19 05:20: Sodium 136, Potassium 4.0, Chloride 107, Carbon Dioxide 24.0, Anion Gap 5, BUN 16, Creatinine 0.73, Estim Creat Clear Calc 42.07, Est GFR (MDRD) Af Amer 100, Est GFR (MDRD) Non-Af 83, BUN/Creatinine Ratio 21.8 H, Glucose 85, Calcium 9.7 12/22/19 05:20: WBC 6.0, RBC 4.40, Hgb 12.2, Hct 38.5, MCV 87.5, MCH 27.7, MCHC 31.7 L, RDW Std Deviation 48.0 H, RDW Coeff of Karen 14.8 H, Plt Count 104 L, MPV 10.5, Immature Gran % (Auto) 0.300, Neut % (Auto) 43.1 L, Lymph % (Auto) 41.5 H, [place] % (Auto) 9.3, Eos % (Auto) 5.0, Baso % (Auto) 0.8, Absolute Neuts (auto) 2.6, Absolute Lymphs (auto) 2.50, Nucleated RBC % 0 12/22/19 06:43: POC Glucose 88 Current Medications Hydrocodone Bitart/Acetaminophen ([place] 5mg-325mg) 1 tablet PO Q6H PRN PRN PRN Reason: Pain Score 6-10/10 Last Admin: 12/22/19 03:56 Dose: 1 tablet Documented by: Cyclobenzaprine HCl (Flexeril) 10 mg PO BID [facility] Last Admin: 12/22/19 08:20 Dose: 10 mg Documented by: Dextrose (D50w Syringe) 0 gm IV X1 PRN; Protocol PRN Reason: Hypoglycemia Dextrose (D50w Syringe) 0 gm IV X1 PRN; Protocol PRN Reason: Hypoglycemia Docusate Sodium (Colace) 100 mg PO BID PRN PRN PRN Reason: Constipation Empagliflozin (Jardiance) 25 mg PO DAILY [facility] Last Admin: 12/22/19 08:21 Dose: 25 mg Documented by: Enoxaparin Sodium (Lovenox) 40 mg SC DAILY@0600 [facility] Last Admin: 12/22/19 05:53 Dose: 40 mg Documented by: Fluticasone Propionate (Flonase Nasal [place]) 2 spray NASAL DAILY [facility] Last Admin: 12/22/19 08:21 Dose: Not Given Documented by: Folic Acid (Folic Acid) 1 mg PO DAILY [facility] Last Admin: 12/22/19 08:20 Dose: 1 mg Documented by: Gabapentin (Neurontin) 400 mg PO TID [facility] Last Admin: 12/22/19 05:53 Dose: 400 mg Documented by: Glucagon () 1 mg IM .X1 PRN PRN Reason: Hypoglycemia Glucagon () 1 mg IM .X1 PRN PRN Reason: Hypoglycemia Hydrochlorothiazide (Hctz) 25 mg PO DAILY [facility] Last Admin: 12/22/19 08:21 Dose: 25 mg Documented by: Hydrochlorothiazide () 12.5 mg PO X1 ONE Stop: 12/22/19 10:43 Last Admin: 12/22/19 08:19 Dose: 12.5 mg Documented by: Cefazolin Sodium 2 gm/ Sodium (Chloride) 110 mls @ 150 mls/hr IV Q8 [facility] Last Infusion: 12/22/19 07:15 Dose: Infused Documented by: Insulin Glargine (Lantus (Bkc)) 42 units SC QHS [facility] Last Admin: 12/22/19 01:48 Dose: Not Given Documented by: Insulin Human Lispro (Humalog Kwikpen (Bkc)) 5 unit SC 0800,1200,1700 [facility] Last Admin: 12/22/19 08:00 Dose: Not Given Documented by: Insulin Human Lispro (Humalog Kwikpen (Bk)) 0 unit SC TIDAC [facility]; Protocol Last Admin: 12/22/19 06:55 Dose: Not Given Documented by: Losartan Potassium (Cozaar) 50 mg PO DAILY [facility] Last Admin: 12/22/19 08:21 Dose: 50 mg Documented by: Melatonin (Melatonin) 5 mg PO QHS PRN PRN PRN Reason: Sleep Last Admin: 12/21/19 21:43 Dose: 5 mg Documented by: Metformin HCl (Glucophage) 850 mg PO BIDCM [facility] Last Admin: 12/22/19 08:19 Dose: 850 mg Documented by: Mirtazapine (Remeron) 15 mg PO QHS [facility] Last Admin: 12/21/19 21:41 Dose: 15 mg Documented by: Nutritional Formula (Sancho - Ralls Flavor) 1 packet PO BIDCM [facility] Last Admin: 12/22/19 08:22 Dose: Not Given Documented by: Nutritional Formula (Lactose Free) (Glucerna Shake) 120 ml PO 4X/DAY [facility] Last Admin: 12/22/19 08:22 Dose: Not Given Documented by: Ondansetron HCl (Zofran) 4 mg IV Q8H PRN PRN PRN Reason: NAUSEA/VOMITING Oxybutynin Chloride (Ditropan) 5 mg PO BID [facility] Last Admin: 12/22/19 08:19 Dose: 5 mg Documented by: Sodium Chloride () 10 - 40 ml IV UD PRN PRN Reason: SALINE FLUSH Last Admin: 12/22/19 08:18 Dose: 10 ml Documented by: Tizanidine HCl (Zanaflex) 4 mg PO BID [facility] Last Admin: 12/22/19 08:20 Dose: 4 mg Documented by: Venlafaxine HCl (Effexor Xr) 300 mg PO DAILY [facility] Last Admin: 12/22/19 08:19 Dose: 300 mg Documented by: Discharge Diet: Carb Control Diet Discharge Activity: - - heel weightbear left foot with surgical shoe. use assistive device if needed. Weight Bearing Status: Partial weight bearing Keep extremity elevated above heart level: Left Leg Call your doctor if your incision/area has: Continuous Slow Oozing, Sudden Increased Bleeding, Increased Pain/ Swelling, Increased Redness, Foul Smelling Discharge, Swelling at the incision site Call your doctor if you observe: Fever of 101 or Higher, Numbness or Tingling, Swelling in the ankles, Calf discomfort, Uncontrolled pain Cleanse incision/area with: Soap & Water Additional Dressing/Incision Instructions:: To change dressing daily with betadine wicked gauze, cover with dry gauze, and cover with gauze roll. Katey daughter is able to help. Home Medications: Medications to take at Discharge Gabapentin [Neurontin] 400 mg PO TID 03/31/14 Tizanidine HCl 4 mg PO BID 03/31/14 Biotin 1,000 mcg PO DAILY 11/18/19 Hydrocortisone 2.5% Crm [Hytone] 1 applic TOPICAL BID PRN PRN 11/18/19 Insulin Aspart [Novolog Flexpen] 5 units SUBCUT TIDCM 11/18/19 Insulin Degludec/Liraglutide [Xultophy 100 Unit-3.6MG/ml Pen] 42 units SQ QHS 11/18/19 Melatonin 5 mg PO QHS PRN 11/18/19 Mirtazapine [Remeron] 15 mg PO QHS 11/18/19 Oxybutynin [Ditropan] 5 mg PO BID 11/18/19 Triamcinolone 0.1% Cream [Kenalog] 1 applic TOPICAL BID 11/18/19 Cyclobenzaprine HCl 10 mg PO BID 12/19/19 Empagliflozin [Jardiance] 25 mg PO DAILY 12/19/19 Fluticasone 0.05% [Flonase Nasal [place]] 2 spray NASAL DAILY 12/19/19 Folic Acid 1 mg PO DAILY 12/19/19 Hydrocodone/Acetaminophen [[place] 5-325 Tablet] 1 tab PO BID PRN 12/19/19 Losartan Potassium [Cozaar] 50 mg PO DAILY 12/19/19 Methotrexate Sodium [Methotrexate] 2.5 mg PO QWEEK 12/19/19 traMADol [Ultram] 50 mg PO TID 12/19/19 Cefadroxil 1 gm PO BID #12 tab 12/22/19 Hydrochlorothiazide [Hctz] 25 mg PO DAILY #30 tab 12/22/19 metFORMIN HCl [Glucophage] 850 mg PO BIDCM #60 tab 12/22/19 Following Prescrptions Were Given to Patient: Cefadroxil 1 gm PO BID #12 tab Transmission Status: Received by [facility] metFORMIN HCl [Glucophage] 850 mg PO BIDCM #60 tab Transmission Status: Received by [facility] Hydrochlorothiazide [Hctz] 25 mg PO DAILY #30 tab Transmission Status: Received by [facility] Primary Care Physician: Chagn Barlow DO [Primary Care Provider] - Please follow up with your Primary Care Physician in: 1 week Please Follow Up With: Aminata Yates DPM When: [facility]; [phone] Medical Necessity - Tobacco Use Smoking Status: Never smoker Tobacco Use: Non-smoker Meaningful Use Info Meaningful Use Diagnoses (Choose all that apply): None applicable
--- NOTE | 2019-12-22 11:22 | CASEMGMT ---
This RN CM to room to discuss discharge plan with pt at this time as pt will need daily dressing change per Dr. Parekh note with betadine wick gauze, dry gauze and kerlix. Pt states that she would like [facility] set up at discharge to teach daughter/granddaughter how to do the dressings. Per Dr. Parekh note, pt's daughter did not feel it was necessary but pt states that she would like [facility] at this time. Per pt, 'my daughter is just worried about me being exposed to too many people' and this RN CM advised her that it's only for a nurse and just for wound checks and to teach family, pt voices understanding. Call to Azul at [facility] with referral and order for [facility] placed in [facility] at this time. [employer] transfer tool to be faxed at this time. Diana ARTEAGA updated on all,voices understanding and pt to be sent home with betadine wick gauze and pt aware rest can be obtained at pharmacy, voices understanding. Soni ARTEAGA CM
[2019-12-22] MEDS: Insulin Lispro 100 UNIT/ML INSULN.PEN SC ×2 (11:51→11:52)
--- NOTE | 2019-12-22 11:52 | CASEMGMT ---
DEBBIE called Josselin Chester and let her know that patient is being discharged today with [facility] for nursing. DEBBIE faxed her d/c instructions for patient. Fouzia HELLER
[2019-12-22 12:05] LABS: Bedside Glucose 220 mg/dL (70-110)
--- NOTE | 2019-12-22 13:26 | PCM.PN.ID ---
Subjective: Feeling ok, foot is sore, no fever, no n/v/d. - Physical Exam Vitals/I&O's: Vital Signs Temp Pulse Resp BP Pulse Ox 97.3 F L 75 16 163/74 H 96 12/22/19 08:25 12/22/19 08:25 12/22/19 08:25 12/22/19 08:25 12/22/19 08:25 Oxygen Delivery Method Room Air Weight: 83.064 kg Body Mass Index (BMI) 32.4 Intake and Output for Last 24 Hours 12/20/19 12/21/19 12/22/19 23:59 23:59 23:59 Intake Total 3410 / 3410 720 / 1420 1520 / 1520 Balance 3410 / 3410 720 / 1420 1520 / 1520 General: Alert, Cooperative, No apparent distress Lungs: Clear to auscultation, Normal air movement Cardiovascular: Regular rate, Regular Rhythm Abdomen: Soft, Non Tender, Non-Distended Skin: Ulcer/ Wound - foot wrapped Microbiology Past 72 Hours 12/21/19 07:30 Wound Abcess - Aerobic & Anaerobic Swabs Gram Stain - Final Laboratory Results 12/21/19 16:53: POC Glucose 146 H 12/21/19 21:44: POC Glucose 99 12/22/19 05:20: Sodium 136, Potassium 4.0, Chloride 107, Carbon Dioxide 24.0, Anion Gap 5, BUN 16, Creatinine 0.73, Estim Creat Clear Calc 42.07, Est GFR (MDRD) Af Amer 100, Est GFR (MDRD) Non-Af 83, BUN/Creatinine Ratio 21.8 H, Glucose 85, Calcium 9.7 12/22/19 05:20: WBC 6.0, RBC 4.40, Hgb 12.2, Hct 38.5, MCV 87.5, MCH 27.7, MCHC 31.7 L, RDW Std Deviation 48.0 H, RDW Coeff of Karen 14.8 H, Plt Count 104 L, MPV 10.5, Immature Gran % (Auto) 0.300, Neut % (Auto) 43.1 L, Lymph % (Auto) 41.5 H, [place] % (Auto) 9.3, Eos % (Auto) 5.0, Baso % (Auto) 0.8, Absolute Neuts (auto) 2.6, Absolute Lymphs (auto) 2.50, Nucleated RBC % 0 12/22/19 06:43: POC Glucose 88 12/22/19 11:51: POC Glucose 220 H Medical Necessity - Tobacco Use Smoking Status: Never smoker Tobacco Use: Non-smoker Route of nutrition/ use of supplements: [] Nutritional Intake: [] IV Site: [] Fields Catheter: [] - Assessment/Plan Antibiotics: [] Assessment/Plan: [] Active and Suspected Problems (Last Updated 12/19/19 @ 13:[address] 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 Wound cxs with mssa. Narrowed abx to cefazolin. No abscess or osteo seen on CT. Podiatry following. Bedside I&D done yesterday, cx neg so far. Ok for dc home on 7 more days of duricef 1gm bid. Will follow
== END 2019-12-22 13:16 | disposition home or self-care (01) | DRG 603 ==
PROVIDERS: Admitting Provider Podiatrist; PCP Family Medicine; Visit Provider Internal Medicine
DX: L03.032 Cellulitis of left toe (principal); I49.9 Cardiac arrhythmia, unspecified; I25.10 Atherosclerotic heart disease of native coronary artery without angina pectoris; R41.3 Other amnesia; E11.42 Type 2 diabetes mellitus with diabetic polyneuropathy; L40.50 Arthropathic psoriasis, unspecified; Z91.81 History of falling; R42 Dizziness and giddiness; E11.621 Type 2 diabetes mellitus with foot ulcer; L97.522 Non-pressure chronic ulcer of other part of left foot with fat layer exposed; E11.51 Type 2 diabetes mellitus with diabetic peripheral angiopathy without gangrene; I10 Essential (primary) hypertension; D69.6 Thrombocytopenia, unspecified; F32.9 Major depressive disorder, single episode, unspecified; E66.9 Obesity, unspecified; F41.9 Anxiety disorder, unspecified; K21.9 Gastro-esophageal reflux disease without esophagitis; Z85.3 Personal history of malignant neoplasm of breast; Z68.32 Body mass index [BMI] 32.0-32.9, adult; Z79.84 Long term (current) use of oral hypoglycemic drugs; Z79.4 Long term (current) use of insulin; Z79.899 Other long term (current) drug therapy; Z98.1 Arthrodesis status
CPT/HCPCS: 36415; 73630; 73700; 80048; 80053; 82962; 83036; 85025; 85652; 86141; 87070; 87075; 87077; 87186; 87205; 87640; 97802; 99251; J7040; J7050; A4216; G0463

== ENCOUNTER 2020-01-12 11:00 | Outpatient (RCR) | payer MEDICARE, MEDICAID, SELFPAY ==
[2019-12-15 00:57] VITALS: BP 137/77; PULSE 124; RESP 20; TEMP 36.8
[2019-12-19 11:30] VITALS: BMI 32.4
--- NOTE | 2020-01-05 16:49 | PN.PCM_ITS ---
(1) Type 2 diabetes mellitus with diabetic polyneuropathy Status: Acute Current Visit: Yes Code(s): E11.42 - Type 2 diabetes mellitus with diabetic polyneuropathy (2) Chronic ulcer of left foot with fat layer exposed Status: Chronic Current Visit: Yes Code(s): L97.522 - Non-pressure chronic ulcer of other part of left foot with fat layer exposed (3) Cellulitis of left foot Status: Resolved Current Visit: Yes Code(s): L03.116 - Cellulitis of left lower limb Type of Wound Date of Service: 01/05/20 Chief Complaint: Left great toe ulcer History of Wound: This is a 74-year-old white female who is seen with telehealth today including audio and visual for follow-up of left foot ulcer. She had a recent incision and drainage bedside performed during her last hospital admission for treatment of cellulitis and localized plantar left hallux abscess. She completed her antibiotics and is doing much better. She denies redness or odor or swelling to the foot. Her daughter Kia is with her today on the [facility] visit. She reports her temperature was 97.5 this morning. Her daughter has been helping her with dressing changes including packing a Betadine with gauze into the opening. She denies drainage to the top of the left great toe. Verbal consent was obtained once again for this telehealth visit. She understands this medical encounter will be part of her medical file in which a note will be created and insurance will be contacted. Progress of Wound: Improvement - Physical Exam Vital Signs Temp Pulse Resp BP 98.2 F 124 H 20 H 137/77 H 12/15/19 00:57 12/15/19 00:57 12/15/19 00:57 12/15/19 00:57 General: Alert, Oriented x3, Cooperative, No apparent distress HEENT: Atraumatic Extremities: Edema - Mild Skin: Ulcer/ Wound - No purulence visualized on telehealth video. There is no erythema or streaking necrosis or ecchymosis. Her skin is atrophic and hairless. A photograph was obtained Musculoskeletal: Muscle Wasting Psych/Mental Status: Normal Affect, Appropriate Debridement Note No debridement was completed today - This is a telehealth visit Assessment/Plan Active Problems (Last Updated 01/05/20 @ 08:48 by Miryam Khan) Chronic ulcer of left foot with fat layer exposed (Chronic) Type 2 diabetes mellitus with diabetic polyneuropathy (Acute) Assessment: See above diagnoses Plan: I reviewed and discussed her case via telehealth visit today with her daughter, Kia present also. Debridement was not performed. The ulcer site appears to be improving with decreased visualized depth and based off of her daughter's findings while changing the dressings. There advised to continue to keep this dry with the Betadine gauze and there is no need to further wick that into the open wound bed. To continue strict offloading with surgical shoe by heel weightbearing. It is noted she had a recent infection she has completed the antibiotics. I do not recommend refill at this time. Her cultures are on file from her last admission at [facility]. She will follow-up at the wound healing center next week or call sooner if there are any questions or concerns or progression towards recurrence of infection.
[2020-01-12 11:00] VITALS: BP 158/92; PULSE 73; RESP 18; TEMP 36.8; BMI 32.4
--- NOTE | 2020-01-12 11:17 | PCM.WC.PN ---
(1) Type 2 diabetes mellitus with diabetic polyneuropathy Status: Acute Current Visit: Yes Code(s): E11.42 - Type 2 diabetes mellitus with diabetic polyneuropathy (2) Chronic ulcer of left foot with fat layer exposed Status: Resolved Current Visit: Yes Code(s): L97.522 - Non-pressure chronic ulcer of other part of left foot with fat layer exposed (3) Cellulitis of left foot Status: Resolved Current Visit: Yes Code(s): L03.116 - Cellulitis of left lower limb Type of Wound Date of Service: 01/12/20 Chief Complaint: Left great toe ulcer History of Wound: This is a 74-year-old white female who is seen with telehealth today including audio and visual for follow-up of left foot ulcer. She had a recent incision and drainage bedside performed during her last hospital admission for treatment of cellulitis and localized plantar left hallux abscess. She completed her antibiotics and is doing much better. She denies redness or odor or swelling to the foot. She is with her daughter Kia today. She denies drainage the past several days and is no longer able to pack any Betadine gauze in the site. Her glucose levels have been reported between 400 and 500 mg/dL. She is seeing streaming media specialist Dr. Rodriguez. Her primary care physician and Dr. Rodriguez both recommended assisted living. She is being evaluated for this at this time. Progress of Wound: Healed - Physical Exam Vital Signs Temp Pulse Resp BP 98.2 F 73 18 158/92 H 01/12/20 11:00 01/12/20 11:00 01/12/20 11:00 01/12/20 11:00 General: Alert, Oriented x3, Cooperative HEENT: Atraumatic Extremities: No cyanosis, Capillary Refill Less than 3 Seconds, No Calf Tenderness, Diminished Peripheral Pulses Skin: Ulcer/ Wound - No purulence, erythema, streaking, odor, action. The ulcer has fully epithelialized and is healed today. Her skin in general is hairless and atrophic. There is no bogginess or fluctuance on palpation Wound Measurements and Assessment WC - Nurse 1 - General Ulcer Measurement Start: 01/12/20 11:00 Freq: Status: Active Protocol: Activity Type Activity Date Activity User E-Sign Co-Sign Detail Recorded Client Recorded Date Recorded By Document 01/12/20 11:00 GURINDER [id number] 01/12/20 11:06 01/12/20 11:00 Wound Center Nurse 1 [Ulcer Assessment] #1- L GR TOE PLANTAR CLUSTER -Combined with other wound No -Current Size (cm) - Length 0.1 -Current Size (cm) - Width 0.1 -Current Size (cm) - Depth 0.1 -Total Square Cm 0.01 -Photo Taken Yes -Epithelialization Large 67-100% -Tunneling No -Undermining/Tunneling No -Circular Undermining No -Exudate Amt None Present -Wound Margin Flat & Intact -Granulation Amt None Present (0 %) -Slough/Fibrin Yes -Necrosis Amt Large (67-100%) -Necrotic Tissue Type Adherent Slough -Structure Exposed N/A -Texture (Larisa-wound Skin Appearance) Assessed,Callus -Moisture (Larisa-wound Skin Appearance Assessed,Dry/ ) Scaly -Color (Larisa-wound Skin Appearance) Assessed -Temperature (Larisa-wound Skin No Abnormality Appearance) (Pt Warm) -Tenderness on Palpation (Larisa-wound No Skin Appearance) -Ulcer Cleansing Rinsed/ Irrigated with Saline -Foul Odor after Cleansing No -Anesthetic Used 4% Lidocaine Solution [Edema Assessment] -Lower Limb Edema Present No WC - Nurse 2 - General Ulcer CM Notes Start: 01/12/20 11:00 Freq: Status: Active Protocol: Activity Type Activity Date Activity User E-Sign Co-Sign Detail Recorded Client Recorded Date Recorded By Document 01/12/20 11:10 [id number] 01/12/20 11:13 01/12/20 11:10 Wound Center Nurse 2 [Procedure/Treatment] #1- L GR TOE PLANTAR CLUSTER -Time 11:11 -Correct Patient No -Correct Side, Site, Position No -Correct Procedure No -Procedure Performed No -Post Debridement Size (cm) - Length 0 -Post Debridement Size (cm) - Width 0 -Post Debridement Size (cm) - Depth 0 -Total Square Cm 0 -Wound/Ulcer Outcome Healed- Epithelialized -Ulcer Cleansing Rinsed/ Irrigated with Saline -Foul Odor after Cleansing No -Bioengineered Tissue No -Bleeding Controlled with Pressure -Offloading Yes -Type of Offloading Surgical Shoe -Treatment Response Procedure Tolerated Well [See Physician Procedure note for Specifics] Pain Scale: 0-10 Numeric [Pain] -Is Patient Pain Free? Yes Musculoskeletal: No Tenderness to Palpation of Joints or Extremities, Muscle Wasting Neurological: - - Lack of normal epicritic sensation to light touch Psych/Mental Status: Normal Affect, Appropriate Debridement Note Post-Debridement Measurements/Treatment WC - Nurse 2 - General Ulcer CM Notes Start: 01/12/20 11:00 Freq: Status: Active Protocol: Activity Type Activity Date Activity User E-Sign Co-Sign Detail Recorded Client Recorded Date Recorded By Document 01/12/20 11:10 [id number] 01/12/20 11:13 GURINDER 01/12/20 11:10 Wound Center Nurse 2 #1- L GR TOE PLANTAR CLUSTER -Time 11:11 -Correct Patient No -Correct Side, Site, Position No -Correct Procedure No -Procedure Performed No -Post Debridement Size (cm) - Length 0 -Post Debridement Size (cm) - Width 0 -Post Debridement Size (cm) - Depth 0 -Total Square Cm 0 -Wound/Ulcer Outcome Healed- Epithelialized -Ulcer Cleansing Rinsed/ Irrigated with Saline -Foul Odor after Cleansing No -Bioengineered Tissue No -Bleeding Controlled with Pressure -Offloading Yes -Type of Offloading Surgical Shoe -Treatment Response Procedure Tolerated Well Pain Scale: 0-10 Numeric Is Patient Pain Free? Yes Laterality: Left No debridement was completed today - Healed Assessment/Plan Active Problems (Last Reviewed 01/11/20 @ 16:[address] Bradley Rodriguez MD) Type 2 diabetes mellitus with diabetic polyneuropathy (Acute) Assessment: See above diagnoses Plan: I reviewed and discussed her this morning in clinic. Debridement was not performed because the ulcer site has healed. Is okay to discontinue dressing care at this time. I do recommend continued offloading with surgical shoe and heel weightbearing to allow the skin to remodel. She is reassured no signs of infection are noted today. To follow-up with a telehealth visit in 2 weeks to confirm the site remains healed. I do recommend better glycemic control to prevent further ulcer formation and other medical complications. To continue to follow-up with her primary care physician and streaming media specialist. It is noted she is being evaluated for assisted living and this seems very appropriate. I answered all of her questions.
[2020-01-12 17:11] LABS: Bedside Glucose 234 mg/dL (70-110)
== END 2020-01-13 23:59 | disposition home or self-care (01) ==
LOC: WC 11:00
PROVIDERS: PCP Family Medicine; Visit Provider Podiatrist
DX: E11.621 Type 2 diabetes mellitus with foot ulcer (principal); L97.522 Non-pressure chronic ulcer of other part of left foot with fat layer exposed; E11.42 Type 2 diabetes mellitus with diabetic polyneuropathy; E11.65 Type 2 diabetes mellitus with hyperglycemia
CPT/HCPCS: 82962; 99213; G0463

== ENCOUNTER → 2020-02-23 09:21 | Outpatient (CLI) | payer MEDICARE, MEDICAID, SELFPAY ==
[2020-01-14 00:18] VITALS: BMI 32.1
[2020-02-23 10:34] LABS: Amphetamine Urine VISTA NEGATIVE (<1000 ng/mL); Barbiturate Urine VISTA NEGATIVE (< 200 ng/mL); Benzodiazepine Urine VISTA NEGATIVE (< 200 ng/mL); Cocaine Urine VISTA NEGATIVE (< 300 ng/mL); Ecstacy Urine VISTA NEGATIVE (< 500 ng/mL); Methadone Urine VISTA NEGATIVE (< 300 ng/mL); PCP Urine VISTA NEGATIVE (< 25 ng/mL); THC Urine VISTA NEGATIVE (< 50 ng/mL); Vista UDS pH Range 6
== END ==
PROVIDERS: PCP Student in an Organized Health Care Education/Training Program; Referring Provider Anesthesiology Pain Medicine; Visit Provider Anesthesiology Pain Medicine
DX: F11.20 Opioid dependence, uncomplicated (principal)
CPT/HCPCS: 36415; 80307

== ENCOUNTER → 2020-02-24 10:03 | Outpatient (CLI) | payer MEDICARE, MEDICAID, SELFPAY ==
[2020-01-14 00:18] VITALS: BMI 32.1
--- NOTE | 2020-02-24 10:13 | CT_ITS ---
STUDY: CT BRAIN WITHOUT CONTRAST REASON FOR EXAM: Female, 74 years old. FALL, PAIN RADIATION DOSAGE (If Supplied By Facility): CTDIvol = ( 44.99 ) mGy, DLP = ( 745.49 ) mGycm TECHNIQUE: Transaxial CT imaging of the brain was performed without administration of intravenous contrast material. Individualized dose optimization techniques were used for this CT. COMPARISON: Comparison is made with prior examination dated June 08, 2014. FINDINGS: Scalp laceration overlying the superior aspect of the right parietal bone. Normal calvarium. There is mild cerebral atrophy with widening of the extra-axial spaces and ventricular dilatation. There are areas of decreased attenuation within the white matter tracts of the supratentorial brain, consistent with microvascular disease changes. Normal basal ganglia and thalami. Normal brainstem. Normal cerebellum. There is no intracranial hemorrhage. There are no findings of an acute ischemic infarction. An air-fluid level is seen in the right sphenoid sinus. Mucosal thickening of the right ethmoid sinus. CT/Brain/Head without Contrast IMPRESSION: Chronic involutional changes of the brain. Air-fluid level is seen in the right sphenoid sinus. Electronically Signed: Mitch Martinez, at 10:48 EDT , Service support ,
--- NOTE | 2020-02-24 10:30 | RAD_ITS ---
STUDY: X-RAY - LEFT ELBOW REASON FOR EXAM: Female, 74 years old. PAIN S/P FALL TECHNIQUE: 3 view(s) of the elbow. COMPARISON: None. FINDINGS: Normal visualized humerus, radius and ulna. Normal radiocapitellar and ulnotrochlear articulations. The soft tissue structures are unremarkable. There is no demonstrated fracture. RAD/Elbow min 3 Views IMPRESSION: Normal x-ray examination of the elbow. Electronically Signed: Gerry Bashir MD at 21:23 EDT , Service support ,
--- NOTE | 2020-02-24 10:30 | RAD_ITS ---
STUDY: X-RAY - LEFT SCAPULA REASON FOR EXAM: Female, 74 years old. PAIN S/P FALL TECHNIQUE: 2 view(s) of the scapula were obtained. COMPARISON: None. FINDINGS: Normal scapula, including the osseous glenoid rim, acromion, scapular neck, spine, coracoid process, and visualized body. Normal glenohumeral articulation. Normal acromioclavicular joint. Normal visualized humeral head. Normal visualized pulmonary apex. There is no demonstrated scapular fracture. RAD/Scapula IMPRESSION: Normal plain film x-ray examination of the scapula. Electronically Signed: Gerry Bashir MD at 21:24 EDT , Service support ,
--- NOTE | 2020-02-24 10:30 | RAD_ITS ---
STUDY: X-RAY - LEFT SHOULDER REASON FOR EXAM: Female, 74 years old. PAIN S/P FALL TECHNIQUE: 4 view(s) of the shoulder. COMPARISON: None. FINDINGS: Normal glenohumeral articulation. Normal acromioclavicular joint. Normal acromion. Normal humeral head and visualized proximal humerus. The soft tissue structures are unremarkable. There is no demonstrated fracture. Normal visualized pulmonary apex. RAD/Shoulder min 2 Views IMPRESSION: Normal x-ray examination of the shoulder. Electronically Signed: Gerry Bashir MD at 21:25 EDT , Service support ,
== END ==
PROVIDERS: PCP Student in an Organized Health Care Education/Training Program; Referring Provider Student in an Organized Health Care Education/Training Program; Visit Provider Student in an Organized Health Care Education/Training Program
DX: M25.522 Pain in left elbow (principal); M25.512 Pain in left shoulder
CPT/HCPCS: 70450; 73010; 73030; 73080

== ENCOUNTER → 2020-02-28 08:58 | Outpatient (CLI) | payer MEDICARE, SELFPAY ==
[2020-01-14 00:18] VITALS: BMI 32.1
--- NOTE | 2020-02-28 09:06 | BI_ITS ---
MAMMOGRAPHY - BILATERAL DIAGNOSTIC REASON FOR EXAM: Female, 74 years old. Left outer breast pain. PERTINENT HISTORY: Personal history of breast cancer. Prior right lumpectomy with radiation treatment. TECHNIQUE: Digital bilateral breast franklin (3D mammographic acquisition) in the CC and MLO projections. 2-D mediolateral oblique (MLO) and craniocaudad (CC) views of both breasts were obtained. CAD: Full Field Digital Mammography with Computer Added Detection was performed. COMPARISON: Comparison is made with prior examination dated October 23, 2016 and February 22, 2015. FINDINGS: Breast Composition: There are scattered areas of fibroglandular density. There are no dominant masses or suspicious calcifications. Stable deformity of the right breast secondary to prior lumpectomy with the skin thickening. There is evidence of a architectural distortion at the surgical site. Since prior study, the calcifications have increased in thickness as well as number suggesting of postoperative scarring. The left breast is unremarkable. Stable benign-appearing left axillary lymph nodes. No other significant abnormalities are identified. BI/DIAG MAMM W/CAD, BILAT IMPRESSION: Persistent architectural distortion in the right breast with deformity. Since prior study, there has been denser calcification at the lumpectomy site. One year follow-up recommended. (A) ASSESSMENT CATEGORY: BIRADS Category 2: Benign. A letter regarding these results will be sent to the patient by the facility within 30 days. Approximately 10% of breast cancers are not detected by mammography. A normal mammogram should not delay biopsy of a clinically suspicious abnormality. Electronically Signed: Mitch Martinez, at 10:42 EDT , Service support ,
--- NOTE | 2020-02-28 09:16 | US_ITS ---
STUDY: ULTRASOUND BREAST - LEFT REASON FOR EXAM: Female, 74 years old. Pain in the left breast. TECHNIQUE: Axial and longitudinal images of the LEFT breast were performed with a high resolution ultrasound transducer. # OF IMAGES: 22 COMPARISON: Comparison is made with prior mammogram done earlier in the day. FINDINGS: LEFT Breast: The lateral half of the left breast was examined by ultrasound. No sonographic abnormality is seen. US/Breast Limited Unilateral IMPRESSION: No sonographic abnormality is seen. ASSESSMENT CATEGORY: BIRADS Category 1: Negative. A letter regarding these results will be sent to the patient by the facility within 30 days. Electronically Signed: Mitch Martinez, at 10:19 EDT , Service support ,
== END ==
PROVIDERS: PCP Student in an Organized Health Care Education/Training Program; Referring Provider Student in an Organized Health Care Education/Training Program; Visit Provider Student in an Organized Health Care Education/Training Program
DX: N64.4 Mastodynia (principal); Z85.3 Personal history of malignant neoplasm of breast
CPT/HCPCS: 76642; 77062; 77066; G0279

== ENCOUNTER 2020-06-01 01:39 | Emergency (ER) | payer MEDICARE, MEDICAID, SELFPAY ==
[2020-03-17 11:49] VITALS: BMI 32.1
[2020-06-01 01:40] VITALS: BP 176/90; PULSE 76; RESP 16; TEMP 36.4; O2SAT 100; BMI 30.7
--- NOTE | 2020-06-01 01:54 | CT_ITS ---
STUDY: CT CERVICAL SPINE WITHOUT CONTRAST REASON FOR EXAM: Female, 75 years old. S/P FALL, LARGE RIGHT SIDE HEMATOMA ABOVE EYE, C/O OLMEDO RADIATION DOSAGE (If Supplied By Facility): CTDIvol = ( 21.07 ) mGy, DLP = ( 409.14 ) mGycm TECHNIQUE: High resolution transaxial imaging was performed without contrast material. Sagittal and coronal images were reconstructed. Individualized dose optimization techniques were used for this CT. COMPARISON: None FINDINGS: Normal craniovertebral junction. There are degenerative changes of the anterior atlantoaxial articulation. Normal odontoid process. There is straightening of the normal cervical lordosis. Normal vertebral bodies and posterior osseous elements. C2-3: Left facet arthropathy. Mild neural foraminal narrowing left. C3-4: Significant erosive facet arthropathy with moderate left neural foraminal narrowing. Small posterior disc osteophyte. C4-5: Mild left facet arthropathy. C5-6: Fusion of the C5-6 disc space. Mild left facet arthropathy. C6-7: There is sclerosis of the endplate, loss of the disk height, disc osteophyte complex. Arthropathy of the bilateral uncovertebral joints. There is normal spinal canal and neuroforamina. C7-T1: Normal endplates. Normal disc height and morphology. Normal central canal and intervertebral neuroforamina. Normal visualized soft tissue structures. CT/Spine Cervical without Contras IMPRESSION: Multilevel degenerative changes, as described above. There is demineralization of osseous structures. There is straightening of the normal lordotic curve, a nonspecific finding, which may be due to positioning or which might be due to muscle spasm. There is no acute displaced fracture or dislocation. These findings were discussed on the telephone with Dr. Clark at 537 hrs. EST on 06/01/2020. Electronically Signed: Lindy Cervantes MD at 5:41 EDT , Service support ,
--- NOTE | 2020-06-01 01:54 | CT_ITS ---
STUDY: CT BRAIN WITHOUT CONTRAST REASON FOR EXAM: Female, 75 years old. S/P FALL, HEMATOMA ABOVE RIGHT EYE AND C/O OLMEDO RADIATION DOSAGE (If Supplied By Facility): CTDIvol = ( 44.99 ) mGy, DLP = ( 745.49 ) mGycm TECHNIQUE: Transaxial CT imaging of the brain was performed without administration of intravenous contrast material. Individualized dose optimization techniques were used for this CT. COMPARISON: CT brain noncontrast 02/24/2020. 06/08/2014. FINDINGS: Significant hematoma right frontal, preseptal and zygomatic, zygomatic arch and maxillary soft tissue. There is no radiopaque foreign body. Intact underlying cortex. Normal calvarium. Hyperattenuation along the left tentorium and less falx consistent with a subdural hemorrhage. There is mild cerebral atrophy with widening of the extra-axial spaces and ventricular dilatation. There are areas of decreased attenuation within the white matter tracts of the supratentorial brain, consistent with microvascular disease changes. Normal basal ganglia and thalami. Normal brainstem. Normal cerebellum. There is no intraparenchymal or intraventricular hemorrhage. There are no findings of an acute ischemic infarction. Normal visualized paranasal sinuses. CT/Brain/Head without Contrast IMPRESSION: Chronic involutional changes of the brain. Subdural hemorrhage along the left tentorium and lesser degree falx. Substantial soft tissue injury. These findings were discussed on the telephone with Dr. Clark at 537 hrs. EST on 06/01/2020. Electronically Signed: Lindy Cervantes MD at 5:38 EDT , Service support ,
[2020-06-01] MEDS: LORazepam 2 MG/ML Syringe IM ×2 (01:57→03:02)
--- NOTE | 2020-06-01 01:58 | ED.RN ---
PT BECAME AGITATED, SWEARING AT PHYSICIAN DURING PHYSICAL EXAM. PT WAS TRYING TO KICK, PUNCH, AND BITE STAFF. PT ATTEMPTED TO GET OUT OF BED. 3RNS TO BEDSIDE ALONG WITH MD. DISTRACTION, EXPLANATION AND EMOTIONAL SUPPORT PROVIDED. MEDICATION ORDERED AND GIVEN. SOFT RESTRAINTS PLACED. PT IS AOX0.
--- NOTE | 2020-06-01 01:59 | ED.DCSUM_ITS ---
History of Present Illness Chief Complaint: Fall Narrative: This patient is a 75-year-old female who presents after a fall. She states I just fell. She denies feeling dizzy or lightheaded or having lost her balance or tripped. History is limited as the patient does have a history of dementia and is agitated. She is stating that she does not want to be here and wants to go home. Past Medical History - Allergies and Home Meds Allergies/Adverse Reactions: Allergies buprenorphine [From Butrans] Allergy (Verified 06/01/20 01:44) Hives Primary Care Physician: Sy Cadena DO [Primary Care Provider] - Past Medical History: - - Diabetes, hypertension, hyperlipidemia per prior record review Surgical History: - - Breast cancer surgery including lymph node removal, spinal surgery with pain management stimulator Smoking Status: Never smoker Review of Systems ROS: Unable to Obtain Physical Exam Vital Signs/Narrative: Vital Signs Temp Pulse Resp BP Pulse Ox 06/01/20 01:40 97.5 F L 76 16 176/90 H 100 Inital Vital Signs reviewed: Yes General: Well nourished Head: - - Patient has a large hematoma above the right eye Eyes: EOMI ENT: Moist mucous membranes Neck: Supple Cardiovascular: Regular rate Respiratory: No distress Abdomen: Soft, Nontender Extremities: Nontender Skin: Normal color Neurological: Alert, - - Patient does not have focal or lateralizing neurological deficits Psychological: Agitated - Patient is agitated uncooperative attempting to get out of bed Diagnostic/Tx/Re-eval Impressions Brain CT 06/01/20 01:54 IMPRESSION: Chronic involutional changes of the brain. Subdural hemorrhage along the left tentorium and lesser degree falx. Substantial soft tissue injury. These findings were discussed on the telephone with Dr. Clark at 537 hrs. EST on 06/01/2020. Electronically Signed: Lindy Cervantes MD at 5:38 EDT , Service support , Cervical Spine CT 06/01/20 01:54 IMPRESSION: Multilevel degenerative changes, as described above. There is demineralization of osseous structures. There is straightening of the normal lordotic curve, a nonspecific finding, which may be due to positioning or which might be due to muscle spasm. There is no acute displaced fracture or dislocation. These findings were discussed on the telephone with Dr. Clark at 537 hrs. EST on 06/01/2020. Electronically Signed: Lindy Cervantes MD at 5:41 EDT , Service support , Knee X-Ray 06/01/20 02:15 IMPRESSION: There is no acute displaced fracture or dislocation. Osteopenia. Electronically Signed: Lindy Cervantes MD at 3:00 EDT , Service support , 06/01/20 01:54 Brain/Head without Contrast [CT] Stat CT Cervical [Spine Cervical without Contras] [CT] Stat 06/01/20 02:15 Knee 1 or 2 Views [RAD] Stat - Medical Decision Making he patient was very combative and agitated. Initially she refused to answer any questions for me swearing and stating that she wanted to leave. She was attempting to get out of bed. She was aggressive towards staff. She was given intramuscular Ativan. Initially on patient's presentation metabolic and infectious work-up was ordered. On the daughter's arrival she notes that the combative behavior is not new and that this is been an ongoing problem related to her dementia and behavior is not surprising to the daughter. The patient is enrolled in hospice. Therefore the decision was made to hold off on blood work or urine and just check imaging. Hospice nurse felt that she could return to assisted living if cleared after imaging. We were able to obtain a left knee x- ray as she complained of left knee pain . However patient continued to be combative and were unable to obtain CT. She was given a repeat dose of Ativan. We waited and again tried to take the patient to imaging and again she became combative trying to move her to the CT scanner. Daughter is requesting that we give her something for pain. She was given intramuscular morphine. We still were unable to initially obtain imaging as patient was still combative if we tried to take her to imaging. I discussed with the family that if she is enrolled in hospice and we would not consider surgery CT imaging would be unlikely to exchange engineer. Daughter would still prefer to obtain imaging. Eventually we were able to obtain CTs of the head and neck which do show a subdural hemorrhage along the tentorium. Daughter at this time wishes to revoke hospice. Patient was transferred to [facility], accepted by trauma surgery Dr. Torres. ED Disposition - Plan for ED Patient: Disposition: [facility] Diagnosis: Subdural hemorrhage, Fall Referrals: Sy Cadena DO [Primary Care Provider] -
--- NOTE | 2020-06-01 02:15 | RAD_ITS ---
STUDY: X-RAY - LEFT KNEE REASON FOR EXAM: Female, 75 years old. S/P FALL -- BEST IMAGES POSSIBLE, PATIENT HAS DEMENTIA AND IS AGITATED TECHNIQUE: 2 view(s) of the knee. COMPARISON: None. FINDINGS: Normal visualized distal femur. Normal visualized proximal tibia and fibula. Normal proximal tibiofibular articulation. Generalized osteopenia. Normal medial femorotibial compartment. Normal lateral femorotibial compartment. Normal patellofemoral articulation. There is no demonstrated joint effusion. The soft tissue structures are unremarkable. RAD/Knee 1 or 2 Views IMPRESSION: There is no acute displaced fracture or dislocation. Osteopenia. Electronically Signed: Lindy Cervantes MD at 3:00 EDT , Service support ,
[2020-06-01] MEDS: morphine 8 MG/ML Syringe 6 MG IM (03:39)
--- NOTE | 2020-06-01 03:39 | ED.RN ---
PT CONTINUES TO REFUSE CT. PT STILL USING HARSH WORDS. DAUGHTER, GAVIN, AT BEDSIDE CONTINUES TO PROVIDE SUPPORT TO MEDICAL STAFF AND TRIES TO REDIRECT PATIENT WHEN NEEDED. PT DOES LISTEN TO DAUGHTER. PAIN MEDICATION GIVEN. EDUCATED PT OF CT SCAN AND THEN DISCHARGE.
[2020-06-01 03:41] VITALS: BP 177/95; PULSE 75; RESP 18; O2SAT 98
--- NOTE | 2020-06-01 03:52 | ED.RN ---
Daughter called for bedpan. PT continues to refuse bedpan.
[2020-06-01 05:35] VITALS: BP 180/86; PULSE 67; RESP 16; O2SAT 97
[2020-06-01 06:16] LABS: Absolute Neutrophil Count 5.4 X10^3/uL (2.0-7.7); Basophil# 0.05 X10^3/uL; Basophil% 0.5 % (0-1); Eosinophil# 0.29 X10^3/uL; Eosinophils% 3.1 % (0-5); Hematocrit 34.5 % (37-47); Hemoglobin 11.3 g/dL (12.0-15.0); Lymphocyte % 27.1 % (19-41); Mean Corp Hgb Conc 32.8 g/dL (32-36); Mean Corpuscular Hgb 28.8 pg (27.0-32.0); Mean Corpuscular Volume 87.8 fL (81-99); Mean Platelet Vol. 10.4 fl (6.2-12.0); Monocyte# 0.92 X10^3/uL; NRBC Flagged by Analyzer 0 % (0-5); Neutrophil # 5.44 X10^3/uL (2.7-7.7); Neutrophil % 59.1 % (47-70); Platelet Count 113 K/mm3 (150-450); RBC Distribution Width CV 13.8 % (11.6-14.6); Red Blood Count 3.93 M/mm3 (4.2-5.4); White Blood Count 9.2 K/mm3 (4.4-11.0)
[2020-06-01 06:27] LABS: Prothrombin Time (Protime)PT. 13.1 SECONDS (11.7-14.9)
[2020-06-01 06:29] LABS: Anion Gap 5 (5-15); BUN 7 mg/dL (7-18); BUN/Creat Ratio 9.5 RATIO (10-20); Calcium,Total 8.7 mg/dL (8.5-10.1); Chloride 102 mmol/L (98-107); Creatinine, Serum 0.74 mg/dL (0.55-1.02); EST Glomerular Filtration Rate 82 mL/min (>60); Est Glom Filt Rate - Afr Amer 99 mL/min (>60); Estimated Creatinine Clearance 43.27 ml/min; Glucose 163 mg/dL (74-106); Sodium Level 139 mmol/L (136-145)
[2020-06-01 06:34] VITALS: BP 162/82; PULSE 77; RESP 16; O2SAT 93
--- NOTE | 2020-06-01 06:38 | ED.RN ---
PT TRANSFERRED TO INPATIENT HOSPICE PER FAMILY REQUEST INSTEAD OF [facility]
[2020-06-01 06:50] VITALS: O2SAT 89
[2020-06-01 06:56] VITALS: O2SAT 98
--- NOTE | 2020-06-01 07:02 | ED.RN ---
THE [facility] NOTIFIED PT INSTEAD BEING TRANSFERRED TO INPATIENT HOSPICE INSTEAD OF [facility]
--- NOTE | 2020-06-01 07:03 | ED.RN ---
TRANSPORT ARRIVED, THEN DAUGHTER ARRIVED, PT NOW GOING TO INPATIENT HOSPICE. [facility] CALLED TO MAKE AWARE.
== END 2020-06-01 07:07 | disposition home or self-care (01) ==
PROVIDERS: Emergency Provider Emergency Medicine; PCP Student in an Organized Health Care Education/Training Program
DX: S06.5X0A Traumatic subdural hemorrhage without loss of consciousness, initial encounter (principal); S00.11XA Contusion of right eyelid and periocular area, initial encounter; W19.XXXA Unspecified fall, initial encounter; Y93.9 Activity, unspecified; Y92.9 Unspecified place or not applicable; I10 Essential (primary) hypertension; E11.9 Type 2 diabetes mellitus without complications; F03.90 Unspecified dementia, unspecified severity, without behavioral disturbance, psychotic disturbance, mood disturbance, and anxiety; Z85.3 Personal history of malignant neoplasm of breast; Z79.4 Long term (current) use of insulin; Z79.899 Other long term (current) drug therapy
CPT/HCPCS: 70450; 72125; 73560; 80048; 85025; 85610; 96372; 99285; A4216